=== PATIENT | female | born 1940 | race Caucasian/White ===

== ENCOUNTER 2017-01-12 09:01 | Outpatient (CLI) ==
[2017-01-12 10:02] LABS: HEMOGLOBIN 11.7 g/dl (12.0-16.0); MEAN CORPUSCULAR HEMOGLOBIN 30.2 pg (27.0-31.0); MEAN CORPUSCULAR HGB CONC 34.4 (31.8-35.4); MEAN CORPUSCULAR VOLUME 87.6 fl (81.0-99.0); RED BLOOD COUNT 3.88 10^6/ul (4.20-5.40); WHITE BLOOD COUNT 6.15 K/ul (4.6-10.2)
[2017-01-12 10:04] LABS: BILIRUBIN,URINE Negative (NEGATIVE); KETONES,URINE Negative (NEGATIVE); LEUKOCYTE ESTERASE ,URINE Negative (NEGATIVE); NITRITE,URINE Negative (NEGATIVE); PROTEIN,URINE Negative (NEGATIVE); URINE, BLOOD Negative (NEGATIVE)
[2017-01-12 10:05] LABS: ADD URINE MICROSCOPIC NO
[2017-01-12 10:41] LABS: ALBUMIN 3.7 g/dL (3.4-5.0); ALBUMIN/GLOBULIN RATIO 1.12; ANION GAP 13.9; BILIRUBIN,TOTAL 0.49 mg/dL (0.00-1.20); BUN/CREATININE RATIO 19.26; CALCIUM 9.5 mg/dL (8.2-10.2); CREATININE 1.09 mg/dL (0.60-1.30); MAGNESIUM 1.4 mg/dL (1.7-2.2); PHOSPHORUS 2.7 mg/dL (2.8-4.1); POTASSIUM 3.9 mmol/L (3.5-5.10)
== END 2017-01-12 09:02 ==
LOC: LAB 09:01
PROVIDERS: ATTEND Nurse Practitioner
DX: N18.3 Chronic kidney disease, stage 3 (moderate) (principal); E55.9 Vitamin D deficiency, unspecified
CPT/HCPCS: 36415; 80053; 81001; 82306; 82570; 83735; 83970; 84100; 84156; 84550; 85027

== ENCOUNTER 2017-04-09 12:44 | Outpatient (CLI) | END 2017-04-09 12:45 | disposition home or self-care (01) | LOC: RAD 12:44 | PROVIDERS: ATTEND Family Medicine | DX: Z12.31 Encounter for screening mammogram for malignant neoplasm of breast (principal) | CPT/HCPCS: 77067 ==

== ENCOUNTER 2018-01-10 09:25 | Outpatient (CLI) | payer OTHER | END 2018-01-10 09:26 | disposition home or self-care (01) | LOC: LAB 09:25 | PROVIDERS: ATTEND Nurse Practitioner | DX: N18.3 Chronic kidney disease, stage 3 (moderate) (principal); E55.9 Vitamin D deficiency, unspecified | CPT/HCPCS: 36415; 80053; 81001; 82306; 82570; 83735; 83970; 84100; 84156; 84550; 85027 ==

== ENCOUNTER 2018-02-18 13:13 | Emergency (ER) | payer OTHER ==
[2018-02-18 13:32] VITALS: BP 183/85; TEMP 96.1; BMI 25.3
--- NOTE | 2018-02-18 14:15 | CT ---
EXAM: CT BRAIN HISTORY: Fall with suspected head injury TECHNIQUE: CT brain without intravenous contrast. 5-mm axial sections with Reformations. COMPARISON: None FINDINGS: There is a tiny acute subdural hematoma in the right frontal parietal level measuring up to about 4.1 mm axial dimension. Subdural blood extends along the right aspect of the anterior interhemispheric falx. Two additional small foci of blood product are present. One measuring up to 6.5 mm found in the uppe r right frontal lobe which probably represents a hemorrhagic parenchymal contusion or focus of subara chnoid blood. Less likely epidural hematoma. Another less distinct, smaller focus of blood product found medial to the right aspect of the anterio r interhemispheric falx measures 4.1 mm with similar differential considerations. There is no noticeable midline shift. Involutional changes include chronic microvascular ischemic ch bryanna which is moderate. There is mild ventriculomegaly which is likely related to generalized atroph y. Basal cisterns are patent. No skull fracture is seen. Visualized paranasal sinuses and mastoid process air cells are clear. IMPRESSION: 1. Small right subdural hematoma. 2. Additional foci of blood product as described located on the right probably represent hemorrhagic parenchymal contusions. Less likely other etiologies (subarachnoid/epidural bleeds). 3. No skull fracture seen. CRITICAL RESULT: I spoke with ordering physician Tonio by phone about these findings at 2:11 p.m. o n 02/18/2018.
--- NOTE | 2018-02-18 14:22 | ED.PDOC ---
General ED Provider: Dr. ANGELINA BUSTAMANTE Chief Complaint: Fall Stated Complaint: possible fall found on the ground by her home health nurse she able to talk to her nurse pt was unsteady upon being help. she was also confused per debbie Chapman . Time Seen by Physician: 13:17 (seen with pt's nurse at all times pt is AOX3 NO DEFICITS NOTED ) Mode of Arrival: Wheelchair Information Source: Patient Exam Limitations: No limitations Primary Care Provider: CECILIO DASILVA Nursing and Triage Documentation Reviewed and Agree: Yes Does patient meet sepsis criteria?: No System Inflammatory Response Syndrome: Not Applicable Sepsis Protocol: For patient's 13 years and over: Temp is 96.8 and below OR 101 and greater Pulse >90 BPM Resp >20/minute Acutely Altered Mental Status Are patient's symptoms suggestive of a new infection, such as: -Pneumonia -Skin, Soft Tissue -Endocarditis -UTI -Bone, Joint Infection -Implantable Device -Acute Abdominal Infection -Wound Infection -Meningitis -Blood Stream Catheter Infection -Unknown Neurological Complaint Exam - Headache Complaint/Exam Onset: Gradual (OCCIPTAL HEADACHE) Duration: TIME OF ONSET ABOUT 12NOON Symptoms Are: Resolved Episodes Lasting: Minutes Worst Headache Ever: No Initial Severity: Mild Current Severity: Mild Location: Occipital Aggravating: Reports: None Alleviating: Reports: None Associated Signs and Symptoms: Denies: Dizziness, Seizure, Nausea, Vomiting, Sinus pressure, Fever, Neck pain, Neck stiffness, Decreased LOC, Visual changes Related Surgical History: Reports: None SAH Risk Factors: Reports: Hypertension (ON ASPRIN DAILY) Meningitis Risk Factors: Reports: None SDH Risk Factors: Reports: Elderly, Recent trauma, Coagulopathy (ON ASPRIN) Temporal Arteritis Risk Factors: Reports: Female, Normal Head CT Within Last 12 Months: No Fundoscopic Exam: Present: Normal Findings Papilledema Present: No Temporal Artery Tenderness: Present: None Sinus Tenderness: Present: None TMJ Tenderness: Present: None Meningeal Signs Positive: No Pain on Passive Flexion-Positive Kernig's: No ROM Limited In: No Limitiations Focal Weakness: Present: None Focal Sensory Loss: Present: None Gait: Unable Nystagmus Present: No Gag Reflex Present: Yes [id number]: Normal Findings Romberg Test Positive: No (UNABLE TO DO) Babinski Sign: Negative Right, Negative Left Heel to Toe Normal: No (UNABLE ) Differential Diagnoses: Other (HEAD INJURY CERVICAL SPINE INJURY) Review of Systems - Review Of Systems Constitutional: Reports: No symptoms Eyes: Reports: No symptoms Ears, Nose, Mouth, Throat: Reports: No symptoms Respiratory: Reports: No symptoms Cardiac: Reports: No symptoms GI: Reports: No symptoms : Reports: No symptoms Musculoskeletal: Reports: No symptoms Skin: Reports: No symptoms Neurological: Reports: Cognitive dysfunction (AT ONSET UPON ARRIVAL NO LONGER CONFUSED ) Endocrine: Reports: No symptoms Hematologic/Lymphatic: Reports: No symptoms All Other Systems: Reviewed and Negative Past Medical History - Past Medical History Previously Healthy: Yes Endocrine: Reports: Dyslipidemia Cardiovascular: Reports: Hypertension Respiratory: Reports: None Hematological: Reports: None Gastrointestinal: Reports: None Genitourinary: Reports: CKD Neuro/Psych: Reports: None Musculoskeletal: Reports: None Cancer: Reports: None Last Menstrual Period: NA - Surgical History 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 - Family History Family History: Reports: None - Social History Smoking Status: Never smoker Hx Substance Use: No Alcohol Screening: None Physical Exam - Physical Exam Appearance: Well-appearing, No pain distress, Well-nourished Eyes: MARINO, EOMI, Conjunctiva clear ENT: Ears normal, Nose normal, Oropharynx normal Respiratory: Airway patent, Breath sounds clear, Breath sounds equal, Respirations nonlabored Cardiovascular: RRR, Pulses normal, No rub, No murmur GI/: Soft, Nontender, No masses, Bowel sounds normal, No Organomegaly Musculoskeletal: Normal strength, ROM intact, No edema, No calf tenderness Skin: Warm, Dry, Normal color Neurological: Sensation intact, Motor intact, Reflexes intact, Cranial nerves intact, Alert, Oriented Psychiatric: Affect appropriate, Mood appropriate Re-Evaluation - Re-Evaluation Time of Re-Evaluation: 14:00 Status: Improved Vital Signs Stable: Yes Pain Level: 0 Appearance: NAD Lungs: Clear Skin: Warm and Dry Neuro: Alert and Oriented X3 CV: RRR - Re-Evaluation Time of Re-Evaluation: 14:29 Status: Improved Vital Signs Stable: Yes Pain Level: 0 Appearance: NAD Skin: Warm and Dry Neuro: Alert and Oriented X3 CV: RRR Physician Notification - Case Discussed Physician Notified: PMD Time of Notification: 14:29 (SPEAK TO NEUROSURGERY AND TRANNSFER) Physician Notified: NOAM Time of Notification: 14:39 Critical Care Note - Critical Care Note Total Time (mins): 60 Course - Course Hematology/Chemistry: 02/18/18 13:30 02/18/18 13:30 Orders, Labs, Meds: Lab Review 02/18/18 02/18/18 02/18/18 13:30 13:30 13:30 WBC 9.37 RBC 4.02 L Hgb 12.1 Hct 35.5 L MCV 88.3 MCH 30.1 MCHC 34.1 RDW Coeff of Aroldo 12.3 Plt Count 172 Immature Gran % (Auto) 0.7 Neut % (Auto) 77.9 Lymph % (Auto) 13.1 [place] % (Auto) 6.4 Eos % (Auto) 1.5 Baso % (Auto) 0.4 Immature Gran # (Auto) 0.1 Neut # (Auto) 7.3 H Lymph # (Auto) 1.2 [place] # (Auto) 0.6 Eos # (Auto) 0.1 Baso # (Auto) 0.0 Sodium 134.9 L Potassium 4.52 Chloride 101.4 Carbon Dioxide 26.4 Anion Gap 11.62 BUN 20.9 H Creatinine 0.92 Estimated GFR (MDRD) 59.00 BUN/Creatinine Ratio 22.71 Glucose 344.9 H Calcium 9.80 Total Bilirubin 0.69 AST 31.2 ALT 27.6 Alkaline Phosphatase 53.4 Total Creatine Kinase 175.8 H CK-MB (CK-2) 3.670 H CK-MB (CK-2) % 2.0800 Troponin I 0.035 Total Protein 7.31 Albumin 3.95 Globulin 3.36 Albumin/Globulin Ratio 1.17 TSH Free T4 1.11 02/18/18 13:30 WBC RBC Hgb Hct MCV MCH MCHC RDW Coeff of Aroldo Plt Count Immature Gran % (Auto) Neut % (Auto) Lymph % (Auto) [place] % (Auto) Eos % (Auto) Baso % (Auto) Immature Gran # (Auto) Neut # (Auto) Lymph # (Auto) [place] # (Auto) Eos # (Auto) Baso # (Auto) Sodium Potassium Chloride Carbon Dioxide Anion Gap BUN Creatinine Estimated GFR (MDRD) BUN/Creatinine Ratio Glucose Calcium Total Bilirubin AST ALT Alkaline Phosphatase Total Creatine Kinase CK-MB (CK-2) CK-MB (CK-2) % Troponin I Total Protein Albumin Globulin Albumin/Globulin Ratio TSH 2.060 Free T4 Orders Category Date Time Status EKG-(ED ONLY) Stat CARDIO 02/18/18 13:16 Completed ED IV/MEDIPORT/POWERPORT .ONCE EMERGENCY 02/18/18 13:16 Active CBC W/ AUTO DIFF Stat LAB 02/18/18 13:30 Completed COMPREHENSIVE METABOLIC PANEL Stat LAB 02/18/18 13:30 Completed CREATINE KINASE Stat LAB 02/18/18 13:30 Completed FREE T4 (FREE THYROXINE) Stat LAB 02/18/18 13:30 Completed THYROID STIMULATING HORMONE Stat LAB 02/18/18 13:30 Completed TROPONIN I Stat LAB 02/18/18 13:30 Completed URINALYSIS C & S IF INDICATED Stat LAB 02/18/18 13:16 Uncollected 0.9 % Sodium Chloride [Saline Flush] MEDS 02/18/18 13:16 Active 1 syr IVF PRN PRN CT CERVICAL SPINE W/O CONTRAST Stat RADS 02/18/18 13:[address] HEAD W/O CONTRAST Stat RADS 02/18/18 13:17 Completed Medications Generic Name Dose Route Start Last Admin Trade Name Freq PRN Reason Stop Dose Admin Sodium Chloride 1 syr 02/18/18 13:16 Saline Flush IVF PRN PRN To flush IV Vital Signs: Temp Pulse Resp BP Pulse Ox 02/18/18 13:14 96.1 F L 60 14 183/85 H 96 Departure - Departure Time of Disposition: 15:00 Disposition: TSF SHORT-TRM HOSP Discharge Problem: Subdural hematoma Instructions: Concussion (ED), Head Injury (ED) Condition: Good Pt referred to PMD for follow-up: Yes IPMP verified?: No Additional Instructions: Please call your Family Physician as soon as possible to schedule a follow-up appointment. Allergies/Adverse Reactions: Allergies No Known Allergies Allergy (Unverified 02/18/18 13:37) Home Medications: Ambulatory Orders Aspirin 81 mg PO DAILY 02/18/18 Brimonidine Tartrate/Timolol [Combigan Eye Drops] 1 drop OP BID 02/18/18 Cholecalciferol (Vitamin D3) [Vitamin D] 5,000 unit PO WEEKLY 02/18/18 Digoxin 250 mcg PO DAILY 02/18/18 Furosemide [Lasix] 20 mg PO EVERY OTHER DAY 02/18/18 Insulin Detemir [Levemir] 30 unit SUBCUT BEDTIME 02/18/18 Linagliptin [Tradjenta] 5 mg PO DAILY 02/18/18 Losartan Potassium [Cozaar] 25 mg PO DAILY 02/18/18 Lovastatin [Altoprev] 40 mg PO DAILY 02/18/18 Metoprolol Succinate 25 mg PO BID 02/18/18 Omeprazole [Prilosec] 20 mg PO EVERY OTHER DAY 02/18/18 Disposition Discussed With: Patient, Family
--- NOTE | 2018-02-18 14:26 | CT ---
EXAM: CT cervical spine without contrast HISTORY: Injury COMPARISON: None TECHNIQUE: CT cervical spine performed without intravenous contrast. Coronal and sagittal reformatt ed images obtained. FINDINGS: Vertebral bodies normal height. No fracture. No subluxation. Multilevel marginal osteop hyte formation. Mild to moderate multilevel intervertebral space narrowing. Multilevel facet and un covertebral hypertrophy. Degenerative changes cause mild multilevel central canal narrowing and area s of bilateral neural foraminal narrowing that is greatest at C5-C6 on the right where there is sever e neural foraminal narrowing. Prevertebral soft tissues appear normal. IMPRESSION: 1. No fracture or subluxation. 2. Chronic discogenic degenerative disease and facet arthrosis.
[2018-02-18] MEDS ORDERED: ZESTRIL PO STA (14:58)
== END 2018-02-18 15:17 | disposition short-term general hospital (02) ==
LOC: ED 13:13
DX: S06.5X9A Traumatic subdural hemorrhage with loss of consciousness of unspecified duration, initial encounter (principal); R51 Headache; I10 Essential (primary) hypertension; R41.0 Disorientation, unspecified; R41.82 Altered mental status, unspecified; W19.XXXA Unspecified fall, initial encounter; Z79.899 Other long term (current) drug therapy; N18.9 Chronic kidney disease, unspecified; E78.5 Hyperlipidemia, unspecified; Z95.1 Presence of aortocoronary bypass graft
CPT/HCPCS: 36415; 80053; 82550; 82553; 84439; 84443; 84484; 85025; 93005; 93010; 99285

== ENCOUNTER 2018-02-25 13:15 | Inpatient (IN) | payer OTHER ==
--- NOTE | 2018-02-25 14:44 | CT ---
EXAM: CT of the head without contrast History: Follow-up subdural hematoma. Comparison: Head CT 02/18 2018 Technique: Multiplanar CT images through the head were obtained without the administration of IV con trast. Findings: The visualized paranasal sinuses and mastoid air cells are clear in general. No acute pankaj varial abnormalities. Intracranially, decreasing size of right subdural hematoma now measuring 2 mm in thickness and previo usly measured 5 mm in thickness. Hemorrhagic contusions on the right have mostly resolved. The subd ural hemorrhage along the falx is resolving with small residual subdural hygroma. No new areas of he morrhage. No midline shift. No hydrocephalous. No change in the periventricular and subcortical wh ite matter hypodensities. Impression: Resolving intracranial hemorrhage. No new areas of hemorrhage.
--- NOTE | 2018-02-25 14:45 | CT ---
EXAM: CT chest without contrast HISTORY: Cough COMPARISON: None TECHNIQUE: CT chest performed without intravenous contrast. Coronal and sagittal reformatted images obtained. FINDINGS: The thyroid and thoracic inlet appear normal. Heart mildly enlarged. Post CABG changes. No pericardial effusion. Aorta normal in caliber. Atherosclerosis. Esophagus unremarkable. Evalu ation for lymphadenopathy limited without contrast. Top normal size. The calcified mediastinal lymp h nodes, consistent with old granulomatous disease. Top normal size noncalcified lymph nodes present . Visualized portion upper abdomen demonstrates no acute abnormality. Left renal cyst. No acute ab normalities of the bones. Degenerative change in the spine. Median sternotomy wires. Osteoarthriti s and in the shoulders. Central airway patent. Mild dependent atelectasis and scattered subsegmenta l atelectasis and/or scarring. No airspace consolidation. No pleural effusion. No pneumothorax. IMPRESSION: 1. Mild bilateral atelectasis. No airspace consolidation. 2. Cardiomegaly.
--- NOTE | 2018-02-25 15:35 | ED.PDOC ---
General ED Provider: Dr. ANGELINA BUSTAMANTE Chief Complaint: Weakness Stated Complaint: failure to thrive Time Seen by Physician: 13:18 (seen with her nurse at all times ) Mode of Arrival: Wheelchair Information Source: Patient, Family Exam Limitations: No limitations Primary Care Provider: CECILIO DASILVA Nursing and Triage Documentation Reviewed and Agree: Yes Does patient meet sepsis criteria?: Yes If yes, has appropriate treatment been initiated?: No System Inflammatory Response Syndrome: Not Applicable Sepsis Protocol: For patient's 13 years and over: Temp is 96.8 and below OR 101 and greater Pulse >90 BPM Resp >20/minute Acutely Altered Mental Status Are patient's symptoms suggestive of a new infection, such as: -Pneumonia -Skin, Soft Tissue -Endocarditis -UTI -Bone, Joint Infection -Implantable Device -Acute Abdominal Infection -Wound Infection -Meningitis -Blood Stream Catheter Infection -Unknown Neurological Complaint Exam - Weakness Complaint/Exam Onset: Gradual Duration: 2 weeks Symptoms Are: Still present Timing: Constant Episodes Lasting: Days Initial Severity: Moderate Current Severity: Mild Character: Reports: Lightheaded, Weak Aggravating: Reports: None Alleviating: Reports: None Associated Signs and Symptoms: Denies: Nausea, Vomiting, Diaphoresis, Tinnitus, Chest pain, Short of air, Palpitations, Unsteady gait, GI blood loss, Visual changes, Decreased oral intake, Change in medication, Change in diet, OTC meds, Loss of balance Related History: Similar episode Cardiac Risk Factors: Reports: Elevated lipids CVA Risk Factors: Reports: None Related Surgical History: Reports: None JVD Present: No Carotid Bruit Present: No Glascow Coma Scale (see protocol): 15 Nystagmus Present: Yes Gag Reflex Present: No Meningeal Signs Positive: No Focal Weakness: Present: None Gait: Normal Differential Diagnoses: Dysrhythmia, Hypovolemia, Metabolic abnormalities, Vasovagal reaction Review of Systems - Review Of Systems Constitutional: Reports: Malaise, Weakness Eyes: Reports: No symptoms Ears, Nose, Mouth, Throat: Reports: No symptoms Respiratory: Reports: No symptoms Cardiac: Reports: No symptoms GI: Reports: No symptoms : Reports: No symptoms Musculoskeletal: Reports: No symptoms Skin: Reports: No symptoms Neurological: Reports: No symptoms Endocrine: Reports: No symptoms Hematologic/Lymphatic: Reports: No symptoms All Other Systems: Reviewed and Negative Past Medical History - Past Medical History Previously Healthy: Yes Endocrine: Reports: Dyslipidemia Cardiovascular: Reports: Hypertension Respiratory: Reports: None Hematological: Reports: None Gastrointestinal: Reports: None Genitourinary: Reports: CKD Neuro/Psych: Reports: None Musculoskeletal: Reports: None Cancer: Reports: None Last Menstrual Period: none - Surgical History 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 - Family History Family History: Reports: None - Social History Smoking Status: Never smoker Hx Substance Use: No Alcohol Screening: None Physical Exam - Physical Exam Appearance: Well-appearing, No pain distress, Well-nourished Eyes: MARINO, EOMI, Conjunctiva clear ENT: Ears normal, Nose normal, Oropharynx normal Respiratory: Airway patent, Breath sounds clear, Breath sounds equal, Respirations nonlabored Cardiovascular: RRR, Pulses normal, No rub, No murmur GI/: Soft, Nontender, No masses, Bowel sounds normal, No Organomegaly Musculoskeletal: Normal strength, ROM intact, No edema, No calf tenderness Skin: Warm, Dry, Normal color Neurological: Sensation intact, Motor intact, Reflexes intact, Cranial nerves intact, Alert, Oriented Psychiatric: Affect appropriate, Mood appropriate Interpretation - Radiology Interpretation Radiology Interpretation By: Radiologist (improved) Radiology Results: No acute changes Re-Evaluation - Re-Evaluation Time of Re-Evaluation: 15:00 Status: Unchanged Vital Signs Stable: Yes Pain Level: 0 Appearance: NAD Lungs: Clear Skin: Warm and Dry Neuro: Alert and Oriented X3 CV: RRR - Re-Evaluation Time of Re-Evaluation: 15:35 Status: Unchanged Vital Signs Stable: Yes Pain Level: 0 Appearance: NAD Skin: Warm and Dry Neuro: Alert and Oriented X3 CV: RRR Physician Notification - Case Discussed Physician Notified: pmd Time of Notification: 15:35 Admit To: Inpatient Critical Care Note - Critical Care Note Total Time (mins): 0 Course - Course Hematology/Chemistry: 02/25/18 14:24 02/25/18 14:24 Orders, Labs, Meds: Lab Review 02/25/18 02/25/18 02/25/18 14:24 14:24 14:24 WBC 7.75 RBC 3.98 L Hgb 11.9 L Hct 35.1 L MCV 88.2 MCH 29.9 MCHC 33.9 RDW Coeff of Aroldo 12.3 Plt Count 185 Immature Gran % (Auto) 0.8 Neut % (Auto) 61.6 Lymph % (Auto) 25.2 [place] % (Auto) 9.2 Eos % (Auto) 2.7 Baso % (Auto) 0.5 Immature Gran # (Auto) 0.1 Neut # (Auto) 4.8 Lymph # (Auto) 2.0 [place] # (Auto) 0.7 Eos # (Auto) 0.2 Baso # (Auto) 0.0 Sodium 129.7 L Potassium 4.29 Chloride 95.4 L Carbon Dioxide 25.8 Anion Gap 12.79 BUN 16.5 Creatinine 0.99 Estimated GFR (MDRD) 54.00 BUN/Creatinine Ratio 16.66 Glucose 253.0 H Calcium 9.51 Total Bilirubin 0.44 AST 21.1 ALT 20.9 Alkaline Phosphatase 43.0 L Total Protein 7.10 Albumin 3.96 Globulin 3.14 Albumin/Globulin Ratio 1.26 Procalcitonin < 0.05 Orders Category Date Time Status BLOOD CULTURE Stat LAB 02/25/18 14:24 Received CBC W/ AUTO DIFF Stat LAB 02/25/18 14:24 Completed COMPREHENSIVE METABOLIC PANEL Stat LAB 02/25/18 14:24 Completed PROCALCITONIN Stat LAB 02/25/18 14:24 Completed URINALYSIS C & S IF INDICATED Stat LAB 02/25/18 15:[address] CHEST W/O CONTRAST Stat RADS 02/25/18 13:[address] HEAD W/O CONTRAST Stat RADS 02/25/18 13:45 Completed Vital Signs: Temp Pulse Resp BP Pulse Ox 02/25/18 13:16 98.9 F 56 L 18 191/80 H 98 Departure - Departure Time of Disposition: 15:35 Disposition: ADMITTED INPATIENT Discharge Problem: Encephalopathy, Hyponatremia Condition: Good Pt referred to PMD for follow-up: Yes IPMP verified?: No Additional Instructions: Please call your Family Physician as soon as possible to schedule a follow-up appointment. Allergies/Adverse Reactions: Allergies No Known Allergies Allergy (Verified 02/25/18 13:21) Home Medications: Ambulatory Orders Aspirin 81 mg PO DAILY 02/18/18 Brimonidine Tartrate/Timolol [Combigan Eye Drops] 1 drop OP BID 02/18/18 Cholecalciferol (Vitamin D3) [Vitamin D] 5,000 unit PO WEEKLY 02/18/18 Digoxin 250 mcg PO DAILY 02/18/18 Furosemide [Lasix] 20 mg PO EVERY OTHER DAY 02/18/18 Insulin Detemir [Levemir] 30 unit SUBCUT BEDTIME 02/18/18 Linagliptin [Tradjenta] 5 mg PO DAILY 02/18/18 Losartan Potassium [Cozaar] 25 mg PO DAILY 02/18/18 Lovastatin [Altoprev] 40 mg PO DAILY 02/18/18 Metoprolol Succinate 25 mg PO BID 02/18/18 Omeprazole [Prilosec] 20 mg PO EVERY OTHER DAY 02/18/18 Guaifenesin/Codeine Phosphate [Robitussin AC Syrup] 5 ml PO Q6H PRN 02/25/18 Disposition Discussed With: Patient, Family
[2018-02-25 17:23] VITALS: BMI 25.7
[2018-02-25] MEDS: SODIUM CHLORIDE 1,000 ML IV SCH (17:32)
[2018-02-25] MEDS: TOPROL XL PO SCH (17:46)
[2018-02-25] MEDS: REMERON PO SCH (20:41)
[2018-02-25] MEDS: HUMULIN R SUBCUT PRN (20:41)
[2018-02-25] MEDS: LEVEMIR SUBCUT SCH (20:43)
[2018-02-25] MEDS: BRIMONIDINE TARTRATE OP SCH (20:44)
[2018-02-25] MEDS: TIMOLOL OP SCH (20:44)
[2018-02-25] MEDS ORDERED: LATANOPROST OP SCH (21:00)
[2018-02-26] MEDS: SODIUM CHLORIDE 1,000 ML IV SCH (05:17)
[2018-02-26] MEDS: TYLENOL PO PRN ×2 (05:19→20:22)
[2018-02-26] MEDS: HUMULIN R SUBCUT PRN ×4 (06:39→20:28)
[2018-02-26] MEDS ORDERED: LOVASTATIN 40 MG PO SCH (09:00)
[2018-02-26] MEDS ORDERED: DIGOXIN 250 MCG PO SCH (09:00)
[2018-02-26] MEDS ORDERED: FLUTICASONE PROPIONATE 2 MCG NAS SCH (09:00)
[2018-02-26] MEDS: ASTELIN 0.1% NAS SCH (09:09)
[2018-02-26] MEDS: ASPIRIN CHEWABLE PO SCH (09:09)
[2018-02-26] MEDS: BRIMONIDINE TARTRATE OP SCH ×2 (09:11→20:35)
[2018-02-26] MEDS: TIMOLOL OP SCH ×2 (09:11→20:35)
[2018-02-26] MEDS: COZAAR PO SCH (09:12)
[2018-02-26] MEDS: FLONASE NAS SCH (09:12)
[2018-02-26] MEDS: LANOXIN PO SCH (09:13)
[2018-02-26] MEDS: TOPROL XL PO SCH ×2 (09:14→16:58)
[2018-02-26] MEDS: MEVACOR PO SCH (09:14)
[2018-02-26] MEDS: TRADJENTA PO SCH (09:15)
--- NOTE | 2018-02-26 16:26 | RS.PTINEVL ---
Subjective - Patient information Date of Evaluation: 02/26/18 Date of Arrival on Unit: 02/25/18 Admitted From:: Home Diagnosis: subdural hematoma s/p fall at home, encephalopathy, Usual Living Arrangement: With Spouse Home Environment: House, Stairs (few), Rail Medical History: Hypertension, CVA/TIA, Diabetes, Arthritis Medical History Comments:: [place], CKD, DJD, foraminal stenosis Surgical History: Cholecystectomy, CABG Surgical History Comments:: appey Medications: see chart Subjective Information/ Patient Comments:: pt states that she is weak since she fell. She states she wants to get stronger so she can go home. - Level of function Abilities prior to this admission: prior to fall pt amb independently without AD and independent with ADL's. Since fall she has required assist. Current Level of Function: Partially Dependent Current Equipment Used at Home: raised toliet, shower chair, rwx, accucheck Interventions - Objective Patient Orientation: Person, Place, Situation Current Interventions: IV's, Telemetry Observation: pt has a wound to coccyx Range of Motion - ROM Right Upper Extremity AROM: Slight limitation (limited shld flex and abd due to joint stiffness and soreness) Left Upper Extremity AROM: WFL's Right Lower Extremity AROM: WFL's Left Lower Extremity AROM: WFL's Muscle Strength - Muscle Strength Right Upper Extremity Strength: Mild Weakness (shld flex 3-/5, elbow flex/ext 4- /5) Left Upper Extremity Strength: Mild Weakness (grossly 4/5) Right Lower Extremity Strength: Mild Weakness (hip flex 3+/5, knee flex/ext 4-/5 , ankle Df/PF 4-/5) Left Lower Extremity Strength: Mild Weakness (hip flex 3+/5, knee flex/ext 4-/5 , ankle Df/PF 4-/5) Sensation - Sensation Right Upper Extremity Sensation: Intact/Normal Left Upper Extremity Sensation: Intact/Normal Right Lower Extremity Sensation: Intact/Normal Left Lower Extremity Sensation: Intact/Normal Palpation Palpation Findings: Tenderness Comments:: R biceps Balance - Sitting Balance and Reactions Static Sitting Balance: Good Dynamic Sitting Balance: Fair Sitting Equilibrium Reactions: Delayed Left, Delayed Right Sitting Protective Reactions: Delayed Left, Delayed Right - Standing Balance and Reactions Static Standing Balance: Poor Dynamic Standing Balance: Poor Standing Equilibrium Reactions: Delayed Left, Delayed Right Standing Protective Reactions: Delayed Left, Delayed Right - Comments Balance Assessment Comments: pt with 3 episodes of LOB required CGA to min x 1 to prevent fall Functional Mobility - Transfers Sit to Stand: Min Assist, 1 person assist Stand to Sit: Min Assist, 1 person assist - Safety Awareness Safety Awareness: Fair CLIFF INDEX SCORE: n/a Ambulation - Ambulation Assistive Device Used: Rolling Walker Orthotic/Prosthetic Device: No Distance: 115ft Assistance needed with Ambulation: CGA, Min Assist, 1 person assist Quality of Ambulation: pt amb with CGA to min x 1 +1 for IV. pt amb with narrow LAVELL, flexed posture, decreased step length. Gait Deviations: Narrow Based gait, Forward posture, Short stride, Deviates from path Factors Affecting Ambulation: Decreased Balance, Weakness, Decreased Coordination, Decreased Safety, Limited Endurance Treatment time - Time with patient Length of Evaluation: 24 Total treatment time: 26 Patient Education - Education Patient Education: Education of Plan of Care Teaching Recipient: Patient Teaching Methods: Discussion (discussion regarding POC as well as safety with rwx) Assessment - Assessment Problem List:: Decreased level of function, Requires training/education, Decreased safety/Risk of falls, Weakness Rehab Potential: Good Further Therapy Indicated?: Yes Candidate for Swing Bed for Therapy Services?: Feel pt may be a candidate for swing bed for therapy due to plans to return home and pt is motivated to participate with PT Evaluation Complexity: HISTORY: Medium, EXAM OF BODY SYSTEMS: Medium, CLINICAL PRESENTATION: Medium, CLINICAL DECISION MAKING: Medium Short Term Goals GOAL #1: Demonstrate independence with rolling and scooting up in bed Goal to be met by: 03/01/18 GOAL #2: Transfer sup to/from sit min x 1, sit to/from stand CGA Goal to be met by: 03/01/18 GOAL #3: pt amb with rwx 140ft with CGA with no LOB with improved posture Goal to be met by: 03/01/18 GOAL #4: Improve BLE strength 4 to 4+/5 Goal to be met by: 03/01/18 Snf Goals GOAL #1: Transfer sup to/from sit to/from stand SBA to CGA Goal to be met by: 03/04/18 GOAL #2: Amb functional household distances with rwx SBA with no LOB Goal to be met by: 03/04/18 GOAL #3: Improve dyn stand balance to fair + Goal to be met by: 03/04/18 Plan Plan of Care: Therapeutic EX, Therapeutic Activity Other:: gait training Frequency of Treatment: 1-2 X day, as tolerated Duration of Treatment: 6 days Anticipated Discharge Destination: Home Treatment Diagnosis (ICD 10 Codes): R26.0 ataxic gait. R26.81 balance impairment. M62.81 weakness Has the Physician been added for Co-signature?: Yes
[2018-02-26] MEDS: REMERON PO SCH (20:22)
[2018-02-26] MEDS: LEVEMIR SUBCUT SCH (20:27)
[2018-02-26] MEDS: LATANOPROST OP SCH (20:35)
[2018-02-27] MEDS: SODIUM CHLORIDE 1,000 ML IV SCH ×2 (04:57→17:46)
[2018-02-27] MEDS ORDERED: LASIX TAB PO SCH (06:30)
[2018-02-27] MEDS ORDERED: PRILOSEC PO SCH (06:30)
[2018-02-27] MEDS ORDERED: MILK OF MAGNESIA PO STA (08:04)
[2018-02-27] MEDS: MEVACOR PO SCH (08:11)
[2018-02-27] MEDS: TRADJENTA PO SCH (08:11)
[2018-02-27] MEDS: FLONASE NAS SCH (08:11)
[2018-02-27] MEDS: ASPIRIN CHEWABLE PO SCH (08:11)
[2018-02-27] MEDS: TOPROL XL PO SCH ×2 (08:11→16:37)
[2018-02-27] MEDS: ASTELIN 0.1% NAS SCH (08:11)
[2018-02-27] MEDS: LANOXIN PO SCH (08:12)
[2018-02-27] MEDS: COZAAR PO SCH (08:12)
[2018-02-27] MEDS: BRIMONIDINE TARTRATE OP SCH ×2 (08:13→21:28)
[2018-02-27] MEDS: TIMOLOL OP SCH ×2 (08:13→21:28)
--- NOTE | 2018-02-27 09:40 | RS.OTINEVL ---
Subjective - Patient information Date of Evaluation: 02/27/18 Date of Arrival on Unit: 02/25/18 Admitted From:: Home Usual Living Arrangement: With Spouse Living Arrangement Comments: Was living at home with her for 57 years. Pt was taking care of . Pt went outside and fell and hit the back of her head. Home Environment: House Medical History Comments:: subdural hematoma, confusion, encephalopathy, hyponatremia, headache, Medications: medicine for depression for a few days. - Level of function Abilities prior to this admission: Pt was driving herself. Pt walked without AE. Pt was independent with dressing and ADLS. Pt having memory trouble. Pt is having difficulty with processing and it is taking her longer to get dressed. Current Level of Function: Partially Dependent Current Equipment Used at Home: raised toliet, shower chair, rwx, accucheck Pain Assessment - Pain Pain Score: 7 Side: bilateral Pain Location Body Site: Head Interventions - Objective Patient Orientation: Person, Place, Situation Current Interventions: IV's Observation: Pt has a headache. Pt has a delay in processing. Pt requires extra time to complete ADLs. Interventions - ROM Right Upper Extremity AROM: Slight limitation Left Upper Extremity AROM: WFL's - Strength Right Upper Extremity Strength: Mild Weakness Left Upper Extremity Strength: Mild Weakness - Sensation Right Upper Extremity Sensation: Intact/Normal Left Upper Extremity Sensation: Intact/Normal Balance - Sitting Balance Static Sitting Balance: Good Dynamic Sitting Balance: Good - Standing Balance Static Standing Balance: Poor Dynamic Standing Balance: Poor - Comments Balance Assessment Comments: Poor ADL Skills - Self Feeding Self Feeding: Independent - Grooming Grooming: Independent - Bathing Bathing UE: CGA Bathing LE: CGA - Dressing Dressing UE: CGA Dressing LE: CGA - Toilet Management Toileting Management: Supervision Functional Mobility - Bed Mobility Rolling R/L: Independent Scooting: Independent Supine to Sit: Independent Sit to Supine: Independent - Transfers Sit to Stand: CGA Stand to Sit: CGA Stand Pivot Transfers: CGA CLIFF INDEX SCORE: . Additional Treatment Performed - Time with patient Length of Evaluation: 25 Total treatment time: 25 Activities Would you be interested in leaving your room for activities?: Yes Would you enjoy group activities?: Yes Do you have difficulty with your vision?: Yes What types of things do you enjoy doing? Any Hobbies?: cross stitching, hand work. Patient Interests:: Watching Television, Visiting/Socializing, [employer] Patient Education Patient Education: Education of diagnosis, Home Safety, Education of Plan of Care Teaching Recipient: Patient Teaching Methods: Discussion Assessment Problem List:: Decreased level of function, Requires training/education, Decreased safety/Risk of falls, Weakness, Cognitive status limits abilities Rehab Potential: Good Further Therapy Indicated?: Yes Evaluation Complexity: HISTORY: Medium, EXAM OF BODY SYSTEMS: Medium, CLINICAL DECISION MAKING: Medium Short Term Goals - Goals GOAL 1: Pt to increase I of toileting to supervision. Goal to be met by: 03/01/18 GOAL 2: Pt to increase dyn. std. balance to Fair-. Goal to be met by: 03/01/18 GOAL 3: Pt to increase B upper extremity strength to 4/5. Goal to be met by: 03/01/18 [facility] Goals GOAL 1: Pt to increase I of toileting to Modified I. Goal to be met by: 03/06/18 GOAL 2: Pt to increase dyn. std. balance to Fair-. Goal to be met by: 03/06/18 GOAL 3: Pt to increase B upper extremity strength to 4+/5. Goal to be met by: 03/06/18 Plan Plan of Care: Therapeutic EX, Neuromuscular Re-Educ, Therapeutic Activity, Self- Care/Home Management Frequency of Treatment: 1-2 X day, as tolerated Duration of Treatment: 1 Week Anticipated Discharge Destination: [facility] Treatment Diagnosis (ICD 10 Codes): M62.81 Muscle weakness, Z74.0 Reduced mobility, Z74.1 Need for assistance with personal care. Has the Physician been added for Co-signature?: Yes
[2018-02-27] MEDS: HUMULIN R SUBCUT PRN ×3 (10:37→21:29)
[2018-02-27] MEDS: TYLENOL PO PRN (15:08)
[2018-02-27] MEDS: LATANOPROST OP SCH (21:28)
[2018-02-27] MEDS: REMERON PO SCH (21:28)
[2018-02-27] MEDS: LEVEMIR SUBCUT SCH (21:29)
[2018-02-28] MEDS: HUMULIN R SUBCUT PRN ×2 (05:49→11:57)
[2018-02-28 06:24] VITALS: TEMP 97.6
[2018-02-28] MEDS: FLONASE NAS SCH (08:09)
[2018-02-28] MEDS: ASTELIN 0.1% NAS SCH (08:09)
[2018-02-28] MEDS: LANOXIN PO SCH (08:10)
[2018-02-28] MEDS: TYLENOL PO PRN (08:10)
[2018-02-28] MEDS: ASPIRIN CHEWABLE PO SCH (08:10)
[2018-02-28] MEDS: COZAAR PO SCH (08:11)
[2018-02-28] MEDS: BRIMONIDINE TARTRATE OP SCH (08:11)
[2018-02-28] MEDS: TRADJENTA PO SCH (08:11)
[2018-02-28] MEDS: TOPROL XL PO SCH (08:11)
[2018-02-28] MEDS: TIMOLOL OP SCH (08:11)
[2018-02-28] MEDS: MEVACOR PO SCH (08:11)
[2018-02-28 13:08] VITALS: BP 138/70
--- NOTE | 2018-02-28 14:24 | DS ---
DATE OF SERVICE: 02/28/2018 PRINCIPAL DIAGNOSIS: 1. ENCEPHALOPATHY SECONDARY TO #2 2. SUBDURAL HEMATOMA 3. DIABETES MELLITUS TYPE 2 4. CHRONIC KIDNEY DISEASE 5. ATRIAL FIBRILLATION 6. INSULIN TREATED TYPE 2 DIABETES 7. HYPERTENSION 8. GERD DISCUSSION: Ms. Weber had recently sustained a fall at home with increased confusion. Subsequent CT scans revealed evidence of subdural hematoma. She has seen her neurosurgeon, Dr. Marin, who planned on treating it nonoperatively. Recently , she has had increasing confusion getting confused in her own home associated with mild headache. The family presented her back to the Emergency Department. CT scan did reveal underlying subdural hematoma; however, it was smaller than the original size. However, because of her confusion, she was admitted for further evaluation and mental status monitoring. For further details, see History and Physical. CLINICAL COURSE: She was admitted to the medical floor. Her mental status remained unchanged. She did have mild headache which was improved with Tylenol. Her blood pressure was elevated during the hospitalization. We increased her Cozaar from 25 to 100 mg which she tolerated very well. At time of discharge, she was alert, still somewhat confused but improved and at this point the family decided to take her for [facility] care. At this point, she is being discharged to the alf. Discharge medications are noted. Essentially the same as admission medications, however, Cozaar will be 100 mg instead of 25 mg. MTDD
--- NOTE | 2018-03-01 08:34 | OTDC ---
Date of Evaluation:02/25/18 Diagnosis:[]Fall, subdural hematoma Number of visits:[] Last Date of Service:[02/26/18] Reason For Discharge:[[facility] to [facility]] Discharge Summary:[Pt not steady on her feet. Pt is confused intermittently. Pt is weak and needs some rehab. Pt and were admitted to [facility].] DES
[2018-03-01] MEDS ORDERED: COZAAR PO SCH ×2 (09:00)
[2018-03-04] MEDS ORDERED: VITAMIN D PO SCH (09:00)
== END 2018-02-28 15:37 | DRG 640 ==
LOC: ED 13:15 → SCU 15:52
PROVIDERS: ADMIT Family Medicine; ATTEND Family Medicine
DX: R62.7 Adult failure to thrive (principal); S06.5X9A Traumatic subdural hemorrhage with loss of consciousness of unspecified duration, initial encounter; G93.40 Encephalopathy, unspecified; E87.1 Hypo-osmolality and hyponatremia; R42 Dizziness and giddiness; E11.9 Type 2 diabetes mellitus without complications; N18.9 Chronic kidney disease, unspecified; I48.91 Unspecified atrial fibrillation; I10 Essential (primary) hypertension; K21.9 Gastro-esophageal reflux disease without esophagitis; Z79.01 Long term (current) use of anticoagulants
CPT/HCPCS: 36415; 80053; 80162; 81001; 82962; 84145; 85025; 87040; 87081; 93005; 93010; 97802; 99284

== ENCOUNTER 2018-06-24 00:04 | Emergency (ER) | payer OTHER ==
[2018-06-24 00:18] VITALS: BP 183/75; TEMP 99.1; BMI 25.4
--- NOTE | 2018-06-24 01:20 | CT ---
EXAM: CT right knee without contrast. HISTORY: Trauma. PROCEDURE: Contiguous axial CT images of the right knee without contrast with coronal and sagittal r eformats. FINDINGS: There is a minimally displaced fracture along the lateral inferior margin of the patella. There is moderate degenerative narrowing of the medial joint compartment of the knee. No subluxation or dislocation. There is degenerative spurring along the margins of the medial and lateral joint co mpartments and along the margins of the patella. There is a moderate amount of complex fluid in the joint space consistent with hemarthrosis. There is anterior soft tissue swelling. Impression: Minimally-displaced fracture along the lateral inferior margin of the patella. Moderate hemarthrosis. Degenerative changes as described.
[2018-06-24] MEDS ORDERED: NORCO 7.5-325 PO STA (01:33)
--- NOTE | 2018-06-24 01:36 | ED.PDOC ---
General ED Provider: Dr. CECILIO DASILVA-ER Chief Complaint: Knee Pain/Injury Stated Complaint: i hurt my knee Time Seen by Physician: 01:34 Mode of Arrival: Wheelchair Information Source: Patient, Family Exam Limitations: No limitations Primary Care Provider: CECILIO DASILVA Nursing and Triage Documentation Reviewed and Agree: Yes Does patient meet sepsis criteria?: No System Inflammatory Response Syndrome: Not Applicable Sepsis Protocol: For patient's 13 years and over: Temp is 96.8 and below OR 101 and greater Pulse >90 BPM Resp >20/minute Acutely Altered Mental Status Are patient's symptoms suggestive of a new infection, such as: -Pneumonia -Skin, Soft Tissue -Endocarditis -UTI -Bone, Joint Infection -Implantable Device -Acute Abdominal Infection -Wound Infection -Meningitis -Blood Stream Catheter Infection -Unknown Musculoskeletal Complaint Exam - Knee Pain Complaint/Exam Mechanism of Injury: Reports: Trauma Onset/Duration: 30 min Symptoms Are: Still present Associated Signs and Symptoms: Denies: Swelling, Redness, Bruising, Fever, Weakness, Numbness, Tingling Able to Bear Weight: No Septic Arthritis Risk Factors: Reports: None Gout Risk Factors: Reports: None Knee Findings: Present: Swelling, Tenderness, Limited range of motion Pastora Test Positive: No Rogelio Test Positive: No Differential Diagnoses: Closed Fracture Review of Systems - Review Of Systems Constitutional: Reports: No symptoms Eyes: Reports: No symptoms Ears, Nose, Mouth, Throat: Reports: No symptoms Respiratory: Reports: No symptoms Cardiac: Reports: No symptoms GI: Reports: No symptoms : Reports: No symptoms Musculoskeletal: Reports: Joint pain, Joint swelling Skin: Reports: No symptoms Neurological: Reports: No symptoms Endocrine: Reports: No symptoms Hematologic/Lymphatic: Reports: No symptoms All Other Systems: Reviewed and Negative Past Medical History - Past Medical History Previously Healthy: Yes Endocrine: Reports: Dyslipidemia Cardiovascular: Reports: Hypertension Respiratory: Reports: None Hematological: Reports: None Gastrointestinal: Reports: None Genitourinary: Reports: CKD Neuro/Psych: Reports: None Musculoskeletal: Reports: None Cancer: Reports: None Last Menstrual Period: UNKNOWN - Surgical History 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 - Family History Family History: Reports: None - Social History Smoking Status: Never smoker Hx Substance Use: No Alcohol Screening: None - Immunizations Tetanus Shot up to Date: Yes Physical Exam - Physical Exam Appearance: Well-appearing, No pain distress, Well-nourished Eyes: MARINO, EOMI, Conjunctiva clear ENT: Ears normal, Nose normal, Oropharynx normal Respiratory: Airway patent, Breath sounds clear, Breath sounds equal, Respirations nonlabored Cardiovascular: RRR, Pulses normal, No rub, No murmur GI/: Soft, Nontender, No masses, Bowel sounds normal, No Organomegaly Musculoskeletal: Normal strength, ROM intact, No edema, No calf tenderness Skin: Warm, Dry, Normal color Neurological: Sensation intact, Motor intact, Reflexes intact, Cranial nerves intact, Alert, Oriented Interpretation - Radiology Interpretation Radiology Interpretation By: ED Physician Radiology Results: Positive Exam Interpreted: CT Scan Critical Care Note - Critical Care Note Total Time (mins): 0 Course - Course Orders, Labs, Meds: Orders Category Date Time Status Splint [ED SPLINT APPLICATION] .ONCE EMERGENCY 06/24/18 01:33 Ordered Hydrocodone Bit/Acetaminophen [[place] 7.5-325] MEDS 06/24/18 01:33 Stat 1 tab PO ONCE STA CT KNEE RIGHT WITHOUT CONTRAST Stat RADS 06/24/18 00:45 Completed Vital Signs: Temp Pulse Resp BP Pulse Ox 06/24/18 00:04 99.1 F 63 16 183/75 H 97 Departure - Departure Time of Disposition: 01:36 Disposition: HOME SELF-CARE Discharge Problem: Injury of knee Instructions: Knee Pain (ED) Condition: Good Pt referred to PMD for follow-up: Yes IPMP verified?: No Allergies/Adverse Reactions: Allergies No Known Allergies Allergy (Verified 06/24/18 00:18) Home Medications: Ambulatory Orders Aspirin 81 mg PO DAILY 02/18/18 Cholecalciferol (Vitamin D3) [Vitamin D] 5,000 unit PO WEEKLY 02/18/18 Digoxin 250 mcg PO DAILY 02/18/18 Furosemide [Lasix] 20 mg PO EVERY OTHER DAY 02/18/18 Linagliptin [Tradjenta] 5 mg PO BEDTIME 02/18/18 Lovastatin [Altoprev] 40 mg PO BEDTIME 02/18/18 Metoprolol Succinate 25 mg PO BID 02/18/18 Omeprazole [Prilosec] 20 mg PO EVERY OTHER DAY 02/18/18 Latanoprost/Pf [Latanoprost 0.005% Eye Drop] 1 drop OP BEDTIME 02/25/18 Mirtazapine 15 mg PO BEDTIME 02/25/18 Losartan Potassium [Cozaar] 100 mg PO DAILY #30 tablet 02/28/18 Acetaminophen 650 mg PO Q4-6H PRN 06/24/18 Acetaminophen/Diphenhydramine [Tylenol Pm Ex-Strength Caplet] 1 each PO BEDTIME 06/24/18 Brimonidine Tartrate [Brimonidine Tartrate 0.2% Opth Yulia] 1 drop OP BEDTIME Brimonidine Tartrate/Timolol [Combigan 0.2%-0.5% Eye Drops] 1 drop OP BID Guaifen/Dextromethorphan/PE [Robitussin Cough-Cold Cf Liq] 5 ml PO Q6H PRN 06/24 Insulin Glargine,Hum.rec.anlog [Basaglar Kwikpen U-100] 40 unit SQ DAILY Polyethylene Glycol 3350 [Miralax] 17 gm PO DAILY PRN 06/24/18 Transfer Form Completed: Yes Disposition Discussed With: Patient, Family
== END 2018-06-24 02:20 | disposition short-term general hospital (02) ==
LOC: ED 00:04
DX: S82.091A Other fracture of right patella, initial encounter for closed fracture (principal); W19.XXXA Unspecified fall, initial encounter
CPT/HCPCS: 99285

== ENCOUNTER 2018-09-04 07:46 | Emergency (ER) ==
[2018-09-04 08:07] VITALS: BP 161/67; TEMP 97.4; BMI 27.0
[2018-09-04] MEDS ORDERED: TETRACAINE 0.5% UNIT-DOSE OP ONE (08:31)
[2018-09-04] MEDS ORDERED: TETRACAINE 0.5% OPTH SOL OP STA (08:39)
--- NOTE | 2018-09-04 09:15 | CT ---
EXAM: CT BRAIN HISTORY: Fall TECHNIQUE: CT brain without intravenous contrast. 5-mm axial sections with Reformations. COMPARISON: 02/25/2018 FINDINGS: There is generalized atrophy. There is moderate periventricular and deep white matter low attenuatio n which although nonspecific is suggestive of chronic microvascular ischemic change. Interval placem ent of a right ventriculostomy tube ending in the anterior horn of the right lateral ventricle. The ventricles are stable in size, mildly dilated. No intracranial hemorrhage or acute infarction is daniel ntified. There is no mass effect or midline shift. No skull fracture is identified. Mastoid air ce lls are aerated. Visualized paranasal sinuses are clear. There is soft tissue swelling in the left periorbital region consistent with peripheral soft tissue hematoma. IMPRESSION: 1. No acute intracranial process or injury identified. No skull fracture. 2. Left periorbital peripheral soft tissue hematoma.
--- NOTE | 2018-09-04 09:21 | CT ---
EXAM: CT FACIAL BONES HISTORY: Fall. TECHNIQUE: CT facial bones without contrast. 3-mm axial sections. Coronal and sagital reformations . FINDINGS: No fracture is identified. Orbits are intact. The intraorbital fat is preserved. Mandible is intac t and TMJ joints are set normally. There is significant swelling in the left periorbital peripheral soft tissues consistent with hematoma measuring up to about 1.4 cm in axial dimension/thickness. IMPRESSION: 1. No fracture identified. 2. Left periorbital peripheral soft tissue hematoma.
--- NOTE | 2018-09-04 09:23 | CT ---
EXAM: CT of the cervical spine without contrast History: Head and neck trauma. Comparison: CT cervical spine 02/18/2018 Technique: Multiplanar CT images through the cervical spine were obtained without the administration of IV contrast Findings: The visualized upper lungs are clear. The visualized airway remains patent. Osteopenia. No acute fracture or subluxation of the cervical spine. No prevertebral soft tissue swelling. Mild to moderate multilevel disc space narrowing. Bony spinal canal is not significantly compromised. N o significant interval change in the multilevel bilateral bony neural foraminal narrowing secondary t o uncovertebral and facet hypertrophy. Impression: No acute osseous abnormality of the cervical spine
--- NOTE | 2018-09-04 09:25 | CT ---
EXAM: CT of the chest without contrast History: Chest trauma. Comparison: Chest CT 02/25/2018 Technique: Multiplanar CT images through the thorax were obtained without the administration of IV c ontrast Findings: Heart is mildly enlarged. No pericardial effusion. No thoracic aortic aneurysm. Partial ly calcified mediastinal lymph nodes again noted. No axillary lymphadenopathy. Evaluation for hilar lymph nodes is limited due to lack of contrast administration. Scattered areas of subsegmental atel ectasis again appreciated. No consolidation. No pleural fluid and no pneumothorax. No suspicious l balaji masses or lung nodules. Within the visualized upper abdomen, no grossly acute findings. Cyst again seen within the left kidn ey. Sternotomy wires. No acute osseous abnormalities. 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
--- NOTE | 2018-09-04 09:29 | ED.PDOC ---
General ED Provider: Dr. ANGELINA BUSTAMANTE Chief Complaint: Fall Stated Complaint: fall head injury Time Seen by Physician: 08:00 (onset of fall is unknown) Mode of Arrival: Ambulance Information Source: Patient, Family, EMT Exam Limitations: No limitations Primary Care Provider: CECILIO DASILVA Referred to ED by: Other (SEE PHOTOSDENIED NECK PAIN, NO BACK OR PELVIC PAIN REPORTED ) Nursing and Triage Documentation Reviewed and Agree: Yes Does patient meet sepsis criteria?: No If yes, has appropriate treatment been initiated?: No System Inflammatory Response Syndrome: Not Applicable (sometimes last night pt had fallen found by worker this AM) Sepsis Protocol: For patient's 13 years and over: Temp is 96.8 and below OR 101 and greater Pulse >90 BPM Resp >20/minute Acutely Altered Mental Status Are patient's symptoms suggestive of a new infection, such as: -Pneumonia -Skin, Soft Tissue -Endocarditis -UTI -Bone, Joint Infection -Implantable Device -Acute Abdominal Infection -Wound Infection -Meningitis -Blood Stream Catheter Infection -Unknown Trauma/Injury Complaint Exam - Trauma Complaint/Exam Location of Pain or Injury: Reports: Head, Face Mechanism of Injury: Reports: Fall Onset/Duration: FALL POSSIBLE LAST NIGHT Symptoms Are: Still present Timing of Treatment: Delayed Initial Severity: Moderate Current Severity: Moderate Aggravating: Reports: None Alleviating: Reports: None Associated Signs and Symptoms: Reports: Bruising (SEE PHOTOS ), Swelling (SEE PHOTOS) Related History: Reports: Anticoagulants (ONLY ASA 81 MG) Penetrating Injury Risk Factors: Reports: None Related Surgical History: Reports: None Nexus Low Risk Criteria: No post-midline CS tender, No evidence of intoxicat., No Altered LOC, No focal neuro deficit Glascow Coma Scale (see protocol): 15 Trauma Findings: Absent: Hemotympanum, Nasal deformity, Dental tenderness, Neck tenderness, Neck spasm, SubQ Air, Labored respirations, Decreased breath sounds , Muffled heart sounds, Weak pulses, Absent pulses, Abdominal distention, Pelvic tenderness, Pelvic instability, Back tenderness, Back malalignment, Limited ROM, Agitated, Uncooperative Skin Findings: Present: Tenderness Differential Diagnoses: Contusions (ORBIT), Hematoma Review of Systems - Review Of Systems Constitutional: Reports: No symptoms Eyes: Reports: No symptoms Ears, Nose, Mouth, Throat: Reports: No symptoms Respiratory: Reports: No symptoms Cardiac: Reports: No symptoms GI: Reports: No symptoms : Reports: No symptoms Musculoskeletal: Reports: No symptoms Skin: Reports: Bruising (LEFT ORBIT WITH EDEMA) Neurological: Reports: No symptoms Endocrine: Reports: No symptoms Hematologic/Lymphatic: Reports: No symptoms All Other Systems: Reviewed and Negative Past Medical History - Past Medical History Previously Healthy: Yes Endocrine: Reports: Dyslipidemia Cardiovascular: Reports: Hypertension Respiratory: Reports: None Hematological: Reports: None Gastrointestinal: Reports: None Genitourinary: Reports: CKD Neuro/Psych: Reports: None Musculoskeletal: Reports: None Cancer: Reports: None Last Menstrual Period: NA - Surgical History 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 - Family History Family History: Reports: None - Social History Smoking Status: Never smoker Hx Substance Use: No Alcohol Screening: None Physical Exam - Physical Exam Appearance: Ill-appearing Ill-appearing: Moderate Pain Distress: Mild (LEFT ORBIT PAIN AND EDEMA) Eyes: MARINO, EOMI, Conjunctiva clear ( ORBIT CONTUSED, LEFT SEE PHOTOS) ENT: Ears normal, Nose normal, Oropharynx normal Respiratory: Airway patent, Breath sounds clear, Breath sounds equal, Respirations nonlabored Cardiovascular: RRR, Pulses normal, No rub, No murmur GI/: Soft, Nontender, No masses, Bowel sounds normal, No Organomegaly Musculoskeletal: Normal strength, ROM intact, No edema, No calf tenderness Skin: Warm, Dry, Normal color Neurological: Sensation intact, Motor intact, Reflexes intact, Cranial nerves intact, Alert, Oriented Psychiatric: Affect appropriate, Mood appropriate Interpretation - Radiology Interpretation Radiology Interpretation By: Radiologist Exam Interpreted: CT Scan (BRAIN, C SPINE, FACIAL BONES ) Physician Notification - Case Discussed Physician Notified: PMD Time of Notification: 09:34 Critical Care Note - Critical Care Note Total Time (mins): 0 Course - Course Hematology/Chemistry: 09/04/18 07:20 09/04/18 07:20 Orders, Labs, Meds: Lab Review 09/04/18 09/04/18 09/04/18 07:20 07:20 07:20 WBC 9.09 RBC 4.31 Hgb 12.7 Hct 36.5 L MCV 84.7 MCH 29.5 MCHC 34.8 RDW Coeff of Aroldo 12.2 Plt Count 269 Immature Gran % (Auto) 0.8 Neut % (Auto) 80.6 Lymph % (Auto) 9.4 L [place] % (Auto) 7.0 Eos % (Auto) 1.5 Baso % (Auto) 0.7 Immature Gran # (Auto) 0.1 Neut # (Auto) 7.3 H Lymph # (Auto) 0.9 [place] # (Auto) 0.6 Eos # (Auto) 0.1 Baso # (Auto) 0.1 PT 9.9 INR 0.99 APTT 23.4 L Sodium 127.9 L Potassium 3.91 Chloride 92.7 L Carbon Dioxide 23.8 Anion Gap 15.31 BUN 15.8 Creatinine 0.75 Estimated GFR (MDRD) 74.00 BUN/Creatinine Ratio 21.06 Glucose 229.3 H Calcium 9.75 Total Bilirubin 0.66 AST 21.8 ALT 19.4 Alkaline Phosphatase 76.7 Total Creatine Kinase 49.0 Troponin I < 0.012 Total Protein 7.57 Albumin 4.65 Globulin 2.92 Albumin/Globulin Ratio 1.59 Urine Color Urine Clarity Urine pH Ur Specific [place] Urine Protein Urine Glucose (UA) Urine Ketones Urine Blood Urine Nitrite Urine Bilirubin Urine Urobilinogen Ur Leukocyte Esterase Urine Microscopic RBC Urine Microscopic WBC Ur Squamous Epith Cells Digoxin 09/04/18 09/04/18 07:25 08:25 WBC RBC Hgb Hct MCV MCH MCHC RDW Coeff of Aroldo Plt Count Immature Gran % (Auto) Neut % (Auto) Lymph % (Auto) [place] % (Auto) Eos % (Auto) Baso % (Auto) Immature Gran # (Auto) Neut # (Auto) Lymph # (Auto) [place] # (Auto) Eos # (Auto) Baso # (Auto) PT INR APTT Sodium Potassium Chloride Carbon Dioxide Anion Gap BUN Creatinine Estimated GFR (MDRD) BUN/Creatinine Ratio Glucose Calcium Total Bilirubin AST ALT Alkaline Phosphatase Total Creatine Kinase Troponin I Total Protein Albumin Globulin Albumin/Globulin Ratio Urine Color Yellow Urine Clarity Clear Urine pH 6.5 Ur Specific [place] 1.015 Urine Protein 2+ Urine Glucose (UA) 1+ Urine Ketones Negative Urine Blood 1+ Urine Nitrite Negative Urine Bilirubin Negative Urine Urobilinogen 1.0 Ur Leukocyte Esterase 1+ Urine Microscopic RBC 5-10 Urine Microscopic WBC 10-20 Ur Squamous Epith Cells 5-10 Digoxin 0.62 L Orders Category Date Time Status EKG-(ED ONLY) Stat CARDIO 09/04/18 09:26 Ordered BLOOD CULTURE (ED ONLY) Stat LAB 09/04/18 Ordered CBC W/ AUTO DIFF Stat LAB 09/04/18 08:17 Ordered COMPREHENSIVE METABOLIC PANEL Stat LAB 09/04/18 08:17 Ordered CREATINE KINASE Stat LAB 09/04/18 08:17 Ordered DIGOXIN Stat LAB 09/04/18 08:19 Ordered LACTIC ACID Stat LAB 09/04/18 08:19 Ordered PARTIAL THROMBOPLASTIN TIME Stat LAB 09/04/18 08:17 Ordered PROCALCITONIN Stat LAB 09/04/18 08:19 Ordered PT WITH INR Stat LAB 09/04/18 08:17 Ordered TROPONIN I Stat LAB 09/04/18 08:17 Ordered URINALYSIS C & S IF INDICATED Stat LAB 09/04/18 08:17 Uncollected URINE CULTURE Stat LAB 09/04/18 08:25 Received Tetracaine HCl [Tetracaine 0.5% Opth Yulia] MEDS 09/04/18 08:39 Discontinued 2 drop OP ONCE STA Tetracaine HCl/Pf [Tetracaine 0.5% Unit-Dose] MEDS 09/04/18 08:31 Discontinued 1 drop OP .STK-MED ONE CT CERVICAL SPINE W/O CONTRAST Stat RADS 09/04/18 08:[address] CHEST W/O CONTRAST Stat RADS 09/04/18 08:[address] HEAD W/O CONTRAST Stat RADS 09/04/18 08:[address] MAXILLOFACIAL W/O CONTRAST Stat RADS 09/04/18 08:18 Ordered Medications Discontinued Medications Generic Name Dose Route Start Last Admin Trade Name Freq PRN Reason Stop Dose Admin Tetracaine HCl 2 drop 09/04/18 08:39 09/04/18 08:43 Tetracaine 0.5% Opth Yulia OP 09/04/18 08:40 2 drop ONCE STA Administration Vital Signs: Temp Pulse Resp BP Pulse Ox 09/04/18 08:00 97.4 F L 70 16 161/67 H 96 Departure - Departure Time of Disposition: 09:34 (DOCTOR YENFIER SEEN THE PT IN THE ED ) Disposition: HOME SELF-CARE Discharge Problem: Edema of left orbit, Hyponatremia Facial contusion Qualifiers: Encounter type: initial encounter Qualified Code(s): S00.83XA - Contusion of other part of head, initial encounter Diabetes Qualifiers: Diabetes mellitus type: other specified (including MAYRA) Head injury Qualifiers: Encounter type: initial encounter Qualified Code(s): S09.90XA - Unspecified injury of head, initial encounter Instructions: Head Injury (ED), Concussion (ED) Condition: Good Pt referred to PMD for follow-up: Yes IPMP verified?: No Allergies/Adverse Reactions: Allergies No Known Allergies Allergy (Verified 06/24/18 00:18) Home Medications: Ambulatory Orders Aspirin 81 mg PO DAILY 02/18/18 Cholecalciferol (Vitamin D3) [Vitamin D] 5,000 unit PO WEEKLY 02/18/18 Digoxin 250 mcg PO DAILY 02/18/18 Furosemide [Lasix] 20 mg PO EVERY OTHER DAY 02/18/18 Linagliptin [Tradjenta] 5 mg PO BEDTIME 02/18/18 Lovastatin [Altoprev] 40 mg PO BEDTIME 02/18/18 Metoprolol Succinate 25 mg PO BID 02/18/18 Omeprazole [Prilosec] 20 mg PO EVERY OTHER DAY 02/18/18 Latanoprost/Pf [Latanoprost 0.005% Eye Drop] 1 drop OP BEDTIME 02/25/18 Mirtazapine 15 mg PO BEDTIME 02/25/18 Losartan Potassium [Cozaar] 100 mg PO DAILY #30 tablet 02/28/18 Acetaminophen 650 mg PO Q4-6H PRN 06/24/18 Acetaminophen/Diphenhydramine [Tylenol Pm Ex-Strength Caplet] 1 each PO BEDTIME 06/24/18 Brimonidine Tartrate/Timolol [Combigan 0.2%-0.5% Eye Drops] 1 drop OP BID Insulin Glargine,Hum.rec.anlog [Basaglar Kwikpen U-100] 40 unit SQ DAILY Polyethylene Glycol 3350 [Miralax] 17 gm PO DAILY PRN 06/24/18 Hydrocodone/Acetaminophen [Hydrocodon-Acetaminoph 7.5-325] 1 each PO Q6HR PRN Insulin Aspart [Novolog] 5 unit SQ TID 09/04/18 Loperamide HCl [Loperamide] 2 mg PO Q6HR PRN 09/04/18 Loratadine 10 mg PO DAILY PRN 09/04/18 Polyvinyl Alcohol [Artificial Tears] 15 ml OP BID 09/04/18 Disposition Discussed With: Patient, Family
[2018-09-04] MEDS ORDERED: ROCEPHIN 1 GM in SODIUM CHLORIDE 50 ML IV STA (09:40)
[2018-09-04] MEDS ORDERED: ROCEPHIN ONE (10:12)
== END 2018-09-04 10:45 | disposition home or self-care (01) ==
LOC: ED 07:46
DX: S00.83XA Contusion of other part of head, initial encounter (principal); H05.222 Edema of left orbit; E87.1 Hypo-osmolality and hyponatremia; E11.9 Type 2 diabetes mellitus without complications; W19.XXXA Unspecified fall, initial encounter; N18.9 Chronic kidney disease, unspecified; I10 Essential (primary) hypertension; E78.5 Hyperlipidemia, unspecified; Z79.899 Other long term (current) drug therapy; Z95.1 Presence of aortocoronary bypass graft
CPT/HCPCS: 36415; 80053; 80162; 81001; 82550; 84484; 85025; 85610; 85730; 87086; 93005; 93010; 96365; 99285

== ENCOUNTER 2018-09-04 10:44 | Outpatient (CLI) ==
[2018-09-04 08:07] VITALS: BMI 27.0
== END 2018-09-04 11:06 | disposition short-term general hospital (02) ==
LOC: AMBL 10:44
PROVIDERS: ATTEND Internal Medicine
DX: S00.12XA Contusion of left eyelid and periocular area, initial encounter (principal); S00.83XA Contusion of other part of head, initial encounter; W19.XXXA Unspecified fall, initial encounter

== ENCOUNTER 2018-11-06 06:29 | Emergency (ER) ==
[2018-11-06 06:44] VITALS: BP 191/91; TEMP 97.1; BMI 25.6
--- NOTE | 2018-11-06 08:11 | CT ---
EXAM: CT BRAIN HISTORY: Fall, scalp laceration TECHNIQUE: CT brain without intravenous contrast. 5-mm axial sections with Reformations. COMPARISON: 09/04/2018 FINDINGS: There is an anterior approach ventriculostomy tube which appears stable. Mildly prominent ventricula r volume is stable. There is no intracranial hemorrhage or subdural hematoma. No evidence of recent large vessel distribution ischemic infarction or skull fracture. IMPRESSION: 1. No acute intracranial process or injury. No skull fracture.
--- NOTE | 2018-11-06 08:14 | ED.PDOC ---
General ED Provider: Dr. ANGELINA BUSTAMANTE Chief Complaint: Head Injury Stated Complaint: head injury fall. Time Seen by Physician: 07:00 (no neck pain) Mode of Arrival: Wheelchair Information Source: Patient, Family Exam Limitations: No limitations Primary Care Provider: CECILIO DASILVA Referred to ED by: Other (no L.O.C ) Nursing and Triage Documentation Reviewed and Agree: Yes Does patient meet sepsis criteria?: No System Inflammatory Response Syndrome: Not Applicable Sepsis Protocol: For patient's 13 years and over: Temp is 96.8 and below OR 101 and greater Pulse >90 BPM Resp >20/minute Acutely Altered Mental Status Are patient's symptoms suggestive of a new infection, such as: -Pneumonia -Skin, Soft Tissue -Endocarditis -UTI -Bone, Joint Infection -Implantable Device -Acute Abdominal Infection -Wound Infection -Meningitis -Blood Stream Catheter Infection -Unknown Trauma/Injury Complaint Exam - Trauma Complaint/Exam Location of Pain or Injury: Reports: Head, Neck, Chest Mechanism of Injury: Reports: Fall (STANDING POSTION ) Onset/Duration: THIS MORNING Timing of Treatment: Immediate Initial Severity: Mild Current Severity: Mild Character: Reports: Dull Aggravating: Reports: None Alleviating: Reports: None Associated Signs and Symptoms: Denies: LOC, Confusion, Memory loss, Lethargy, Vomiting, Bleeding, Bruising, Swelling, Extremity disuse, Painful respiration, Hoarseness, Dysphagia, Hemoptysis, Significant blood loss Related Surgical History: Reports: None Nexus Low Risk Criteria: No post-midline CS tender, No evidence of intoxicat., No Altered LOC, No focal neuro deficit, No distracting injuries Glascow Coma Scale (see protocol): 15 Review of Systems - Review Of Systems Constitutional: Reports: No symptoms Eyes: Reports: No symptoms Ears, Nose, Mouth, Throat: Reports: No symptoms Respiratory: Reports: No symptoms Cardiac: Reports: No symptoms GI: Reports: No symptoms : Reports: No symptoms Musculoskeletal: Reports: No symptoms Skin: Reports: Other (LACERATION OF SCALP) Neurological: Reports: No symptoms Endocrine: Reports: No symptoms Hematologic/Lymphatic: Reports: No symptoms All Other Systems: Reviewed and Negative Past Medical History - Past Medical History Previously Healthy: Yes Endocrine: Reports: Dyslipidemia Cardiovascular: Reports: Hypertension Respiratory: Reports: None Hematological: Reports: None Gastrointestinal: Reports: None Genitourinary: Reports: CKD Neuro/Psych: Reports: None Musculoskeletal: Reports: None Cancer: Reports: None Last Menstrual Period: na - Surgical History 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 - Family History Family History: Reports: None - Social History Smoking Status: Never smoker Hx Substance Use: No Alcohol Screening: None - Immunizations Tetanus Shot up to Date: (unknown) Physical Exam - Physical Exam Appearance: Well-appearing, No pain distress, Well-nourished Eyes: MARINO, EOMI, Conjunctiva clear ENT: Ears normal, Nose normal, Oropharynx normal Respiratory: Airway patent, Breath sounds clear, Breath sounds equal, Respirations nonlabored Cardiovascular: RRR, Pulses normal, No rub, No murmur GI/: Soft, Nontender, No masses, Bowel sounds normal, No Organomegaly Musculoskeletal: Normal strength, ROM intact, No edema, No calf tenderness Skin: Warm, Dry (1.7CM LACERATION POST SCALP NO F/B. SEE PHOTOS BEFORE AND AFTER ) Neurological: Sensation intact, Motor intact, Reflexes intact, Cranial nerves intact, Alert, Oriented Psychiatric: Affect appropriate, Mood appropriate Interpretation - Radiology Interpretation Radiology Interpretation By: Radiologist Radiology Results: No acute changes Exam Interpreted: CT Scan (C SPINE AND BRAIN BOTH REPORTED TO HAVE NO ACUTE CHANGES ) Procedures - Laceration/Wound Repair No standard instances Wound Description: Linear Wound Length (cm): 1.7CM Wound Width: 2MM Wound Depth: 2MM Wound Explored: Clean Wound Irrigated: Yes Wound Prep: Saline Anesthesia: Lidocaine (PLAIN 1ML) Undermining: Minimal Wound Margins: Revised Wound Repaired With: Kalia Number of Kalia: 5 Layer Closure?: No Sterile Dressing Applied?: No Splint Applied?: No Progress: NO F/B NOTED Critical Care Note - Critical Care Note Total Time (mins): 0 Course - Course Orders, Labs, Meds: Orders Category Date Time Status CT CERVICAL SPINE W/O CONTRAST Stat RADS 11/06/18 07:[address] CHEST W/O CONTRAST Stat RADS 11/06/18 07:[address] HEAD W/O CONTRAST Stat RADS 11/06/18 07:[address] THORACIC SPINE W/O CONTRAST Stat RADS 11/06/18 07:14 Taken Vital Signs: Temp Pulse Resp BP Pulse Ox 11/06/18 06:33 97.1 F L 68 20 191/91 H 97 Departure - Departure Time of Disposition: 09:00 Disposition: HOME SELF-CARE Discharge Problem: Injury of head Laceration of scalp Qualifiers: Encounter type: initial encounter Qualified Code(s): S01.01XA - Laceration without foreign body of scalp, initial encounter Instructions: Laceration (DC), Head Injury (ED) Condition: Good Pt referred to PMD for follow-up: Yes IPMP verified?: No Additional Instructions: Please call your Family Physician as soon as possible to schedule a follow-up appointment. Allergies/Adverse Reactions: Allergies No Known Allergies Allergy (Verified 06/24/18 00:18) Home Medications: Ambulatory Orders Aspirin 81 mg PO DAILY 02/18/18 Cholecalciferol (Vitamin D3) [Vitamin D] 5,000 unit PO WEEKLY 02/18/18 Digoxin 250 mcg PO DAILY 02/18/18 Furosemide [Lasix] 20 mg PO EVERY OTHER DAY 02/18/18 Linagliptin [Tradjenta] 5 mg PO BEDTIME 02/18/18 Lovastatin [Altoprev] 40 mg PO BEDTIME 02/18/18 Metoprolol Succinate 25 mg PO BID 02/18/18 Omeprazole [Prilosec] 20 mg PO EVERY OTHER DAY 02/18/18 Latanoprost/Pf [Latanoprost 0.005% Eye Drop] 1 drop OP BEDTIME 02/25/18 Mirtazapine 15 mg PO BEDTIME 02/25/18 Losartan Potassium [Cozaar] 100 mg PO DAILY #30 tablet 02/28/18 Acetaminophen 650 mg PO Q4-6H PRN 06/24/18 Brimonidine Tartrate/Timolol [Combigan 0.2%-0.5% Eye Drops] 1 drop OP BID Insulin Glargine,Hum.rec.anlog [Basaglar Kwikpen U-100] 40 unit SQ DAILY Polyethylene Glycol 3350 [Miralax] 17 gm PO DAILY PRN 06/24/18 Insulin Aspart [Novolog] 5 unit SQ TID 09/04/18 Loperamide HCl [Loperamide] 2 mg PO Q6HR PRN 09/04/18 Loratadine 10 mg PO DAILY PRN 09/04/18 Polyvinyl Alcohol [Artificial Tears] 15 ml OP BID 09/04/18 Disposition Discussed With: Patient, Family
--- NOTE | 2018-11-06 08:17 | CT ---
EXAM: CT cervical spine. HISTORY: Fall, neck pain. TECHNIQUE: CT cervical spine without contrast. Detailed axial sections. Coronal and sagittal re-fo rmations. COMPARISON: 09/04/2018 FINDINGS: Bones appear demineralized. There is no fracture identified. Vertebral body heights and alignment a ppear normal. Facet joints are covered. Lateral masses of C1 and C2 are normally aligned and the o dontoid process is intact. Diffuse degenerative disc and facet disease. No traumatic central canal stenosis or paraspinal hematoma. IMPRESSION: 1. No acute fracture or subluxation.
[2018-11-06] MEDS ORDERED: LIDOCAINE HCL 1% SDV SUBCUT STA (08:18)
--- NOTE | 2018-11-06 08:23 | CT ---
EXAM: CT THORAX HISTORY: Fall, back pain. TECHNIQUE: CT thorax without intravenous contrast. Multiplanar images presented. COMPARISON: 09/04/2018 CT chest FINDINGS: Bones appear demineralized. There is no fracture or loss of vertebral body height. No spondylolisth esis. There is no scoliosis, traumatic central canal stenosis or paraspinal hematoma. See also same day CT thorax report. IMPRESSION: 1. No acute fracture or subluxation identified.
--- NOTE | 2018-11-06 08:33 | CT ---
EXAM: CT THORAX HISTORY: Fall, pain. TECHNIQUE: CT thorax without intravenous contrast. Multiplanar images presented. COMPARISON: 09/04/2018 FINDINGS: Heart size is approaching upper limit normal. No pericardial effusion is seen. There is mild to mod erate atherosclerotic disease. Limited evaluation of the mediastinum and hilar structures without th e administration of intravenous contrast agent. There are a few scattered nonspecific mediastinal an d subcarinal lymph nodes, some which have partial calcification. Respiratory motion degrades lung targeted image quality. There is no pneumothorax or pleural fluid i dentified. There is mild basilar atelectasis suggested on the left. A few calcified granulomas are noted. Normal vascularity. The bones reveal no acute fracture or deformity. Arthropathy is noted of the spine and the shoulders . Incidental note of a 3.1 cm cystic appearing mass off of the anterior left renal cortex which prob ably represents a cyst. This can be correlated with renal ultrasound as follow-up. IMPRESSION: 1. No acute injuries identified. 2. Atherosclerotic disease. 3. Nonspecific mediastinal lymph nodes. 4. Probable left renal cortical cyst.
== END 2018-11-06 08:48 | disposition home or self-care (01) ==
LOC: ED 06:29
DX: S01.01XA Laceration without foreign body of scalp, initial encounter (principal); S09.90XA Unspecified injury of head, initial encounter; W19.XXXA Unspecified fall, initial encounter; R07.89 Other chest pain; M54.2 Cervicalgia
CPT/HCPCS: 99283

== ENCOUNTER 2021-12-19 20:08 | Inpatient (IN) ==
--- NOTE | 2021-12-19 20:10 | ED.PDOC ---
General ED Provider: Dr. DALIA CARDONA MD Chief Complaint: Fever Stated Complaint: Patient has had fever to 101.2, weakness and nasal congestion for 3 days. She tested positive for covid today. Denies chills, malaise, headache, sore throat, cough, dyspnea, chest pain, syncope, palpitations, nausea, emesis, diarrhea, abdominal pain or urinary tract symptoms. Patient having difficulty ambulating and has fallen twice in yesterday and today. Time Seen by Provider: 12/19/21 20:08 Primary Care Provider: CECILIO DASILVA Nursing and Triage Documentation Reviewed and Agree: Yes Does patient meet sepsis criteria?: No System Inflammatory Response Syndrome: Not Applicable Sepsis Protocol: For patient's 13 years and over: Temp is 96.8 and below OR 101 and greater Pulse >90 BPM Resp >20/minute Acutely Altered Mental Status Are patient's symptoms suggestive of a new infection, such as: -Pneumonia -Skin, Soft Tissue -Endocarditis -UTI -Bone, Joint Infection -Implantable Device -Acute Abdominal Infection -Wound Infection -Meningitis -Blood Stream Catheter Infection -Unknown Miscellaneous Complaint Exam Febrile Illness/Adult Complaint/Exam Onset/Duration: 3-4 days Symptoms Are: Still present Timing: Constant Highest Temperature Recorded: 101.2 Initial Severity: Mild Current Severity: Mild Aggravating: Reports None Alleviating: Reports OTC Meds Associated Signs and Symptoms: Denies Headache, Fluid intake, Short of air, Cough, Sore throat, Nausea, Vomiting, Chills, Diaphoresis, Dysuria, Arthralgia, Stiff neck, Myalgia, Rash or Altered mental status Pseudomonas Risk Factors: Reports None Serious Bacterial Infection Risk Factors: Reports None Current Antibiotic Use: No Related Surgical History: None Review of Systems Review Of Systems Constitutional: Reports Fever, Weakness and Loss of appetite Eyes: Reports No symptoms Ears, Nose, Mouth, Throat: Reports Nose discharge Respiratory: Reports No symptoms Cardiac: Reports No symptoms GI: Reports No symptoms : Reports No symptoms Musculoskeletal: Reports No symptoms Skin: Reports No symptoms Neurological: Reports Weakness Endocrine: Reports No symptoms Hematologic/Lymphatic: Reports No symptoms All Other Systems: Reviewed and Negative [facility] Social History Smoking and tobacco status: Never smoker Substance use type: does not use History of recent travel: No Female Reproductive History Menstrual Hx Hysterectomy: No Hx Tubal Ligation: No Physical Exam Physical Exam Appearance: Reports Ill-appearing and No pain distress Ill-appearing: Moderate Pain Distress: None Eyes: Reports MARINO and EOMI ENT: Reports Rhinorrhea Neck: Supple Respiratory: Reports Airway patent, Breath sounds clear and Breath sounds equal Cardiovascular: Reports RRR, No rub and No murmur GI/: Reports Soft, Nontender, No masses and Bowel sounds normal Musculoskeletal: Reports ROM intact, No edema and No calf tenderness Skin: Reports Warm, Dry and Normal color Neurological: Reports Sensation intact, Alert and Oriented Psychiatric: Reports Affect appropriate and Mood appropriate Physician Notification Case Discussed Physician Notified: Dr Calzada Time of Notification: 20:53 Comments: Patient will be admitted for IV fluid therapy and paxlovid. She is a high risk for fall. Critical Care Note Critical Care Note Total Critical Care Time (mins): 0 Course Course Hematology/Chemistry: 12/19/21 20:33 12/19/21 20:33 Orders, Labs, Meds: Lab Review 12/19/21 12/19/21 20:33 20:33 WBC 8.62 RBC 4.18 L Hgb 12.6 Hct 37.0 MCV 88.5 MCH 30.1 MCHC 34.1 RDW Coeff of Aroldo 13.6 Plt Count 158 Immature Gran % (Auto) 0.8 Neut % (Auto) 51.3 Lymph % (Auto) 30.5 [place] % (Auto) 15.3 H Eos % (Auto) 1.5 Baso % (Auto) 0.6 Neut # (Auto) 4.4 Lymph # (Auto) 2.6 [place] # (Auto) 1.3 Eos # (Auto) 0.1 Baso # (Auto) 0.1 Immature Gran # (Auto) 0.1 Sodium 134.0 L Potassium 3.90 Chloride 104.0 Carbon Dioxide 22.0 Anion Gap 11.90 BUN 16.0 Creatinine 1.20 Estimated GFR (MDRD) 43.00 BUN/Creatinine Ratio 13.33 Glucose 151.0 H Calcium 9.50 Total Bilirubin 0.50 AST 25.0 ALT 21.0 Alkaline Phosphatase 59.0 Total Protein 7.60 Albumin 3.90 Globulin 3.70 Albumin/Globulin Ratio 1.05 Orders Category Date Time Status CBC W/ AUTO DIFF Stat LAB 12/19/21 20:33 Completed CMP [COMPREHENSIVE METABOLIC PANEL] Stat LAB 12/19/21 20:33 Completed URINALYSIS C & S IF INDICATED Stat LAB 12/19/21 20:18 Uncollected CXR [CHEST, 1V AP ONLY] Stat RADS 12/19/21 20:18 Taken Vital Signs: Temp Pulse Resp BP Pulse Ox 12/19/21 20:30 98.2 F 77 16 144/71 H 95 Discharge Plan Discharge Patient Disposition: ADMITTED INPATIENT Discharge Problem: COVID-19 virus infection, Generalized weakness, At high risk for falls Prescriptions: No Action digoxin 250 MCG tablet 250 mcg PO DAILY omeprazole 20 MG capsule,delayed release(DR/EC) 20 mg PO EVERY OTHER DAY aspirin 81 MG tablet,chewable 81 mg PO DAILY furosemide [Lasix] 20 MG tablet 20 mg PO EVERY OTHER DAY metoprolol succinate 25 MG tablet extended release 24 hr 25 mg PO BID Altoprev 40 MG tablet extended release 24 hr 40 mg PO BEDTIME cholecalciferol (vitamin D3) [Vitamin D3] 1,000 UNIT tablet 5,000 unit PO WEEKLY Tradjenta 5 MG tablet 5 mg PO BEDTIME mirtazapine 15 MG tablet 15 mg PO BEDTIME latanoprost (PF) 7.5 ML drops 1 drp BOTHEYES BEDTIME losartan 100 MG tablet 100 mg PO DAILY Qty: 30 0RF Rx Instructions: TAKE ONE TABLET BY MOUTH DAILY THIS IS A NEW DOSE (INCREASED FROM 25 MG PO DAILY) loperamide 2 MG capsule 2 mg PO Q6HR PRN (Reason: Diarrhea) polyvinyl alcohol [Artificial Tears (polyvin alc)] 15 ML drops 15 ml BOTHEYES BID loratadine 10 MG tablet 10 mg PO DAILY PRN (Reason: Allergy Symptoms) insulin aspart U-100 [Novolog PenFill U-100 Insulin] 100 UNIT/ML cartridge 10 unit SQ TID Systane Nighttime 94-3 % Ointment 1 applic BOTHEYES BEDTIME nifedipine [Procardia XL] 30 mg tablet extended release 24hr 30 mg PO DAILY Qty: 30 0RF acetaminophen 325 MG tablet 650 mg PO Q4-6H PRN (Reason: PAIN/FEVER) polyethylene glycol 3350 [Miralax] 17 GM powder in packet 17 g PO DAILY PRN (Reason: Constipation) Basaglar KwikPen U-100 Insulin 100 UNIT/ML insulin pen 50 unit SQ DAILY Combigan 10 ML drops 1 drp BOTHEYES BID Did you review [place] CONTACT LENS LATHE OPERATOR?: Not Applicable ED Provider: DALIA CARDONA Condition: Fair Physician Progress Note: []
[2021-12-19 20:38] LABS: BASOPHILS # (AUTO) 0.1 K/uL (0-0.2); BASOPHILS % (AUTO) 0.6 % (0.0-3.0); EOSINOPHILS # (AUTO) 0.1 K/ul (0.0-0.7); EOSINOPHILS % (AUTO) 1.5 % (0.0-7.0); HEMOGLOBIN 12.6 g/dl (12.0-16.0); IMMATURE GRANULOCYTE # (AUTO) 0.1 (0.0-1.0); IMMATURE GRANULOCYTE % (AUTO) 0.8 % (0.0-5.0); LYMPHOCYTES # (AUTO) 2.6 K/uL (0.60-3.4); LYMPHOCYTES % (AUTO) 30.5 (10.0-50.0); MEAN CORPUSCULAR HEMOGLOBIN 30.1 pg (27.0-31.0); MEAN CORPUSCULAR HGB CONC 34.1 (31.8-35.4); MEAN CORPUSCULAR VOLUME 88.5 fl (81.0-99.0); MONOCYTES # (AUTO) 1.3 K/uL (0.4-2.0); MONOCYTES % (AUTO) 15.3 (0-10); NEUTROPHILS # (AUTO) 4.4 K/ul (2.0-6.9); NEUTROPHILS % (AUTO) 51.3 % (42.2-75.2); PLATELET COUNT 158 10^3/uL (140-440); RDW COEFFICIENT OF VARIATION 13.6 % (11.6-14.8); RED BLOOD COUNT 4.18 10^6/ul (4.20-5.40); WHITE BLOOD COUNT 8.62 K/ul (4.6-10.2)
[2021-12-19 20:44] VITALS: BMI 27.9
[2021-12-19 20:50] LABS: ALBUMIN 3.9 g/dL (3.5-5.0); BILIRUBIN,TOTAL 0.5 mg/dL (0.2-1.3); CALCIUM 9.5 mg/dL (8.4-10.2); CREATININE 1.2 mg/dL (0.60-1.30); POTASSIUM 3.9 mmol/L (3.5-5.1); TOTAL PROTEIN 7.6 g/dL (6.3-8.2)
--- NOTE | 2021-12-19 20:53 | DI ---
EXAM: CHEST RADIOGRAPH (1 VIEW) TECHNIQUE: Single frontal chest radiograph. HISTORY: Cough and fever. COVID-19. COMPARISON: 04/15/2019. FINDINGS: There is a benign calcified granuloma in the left upper lobe laterally. The lungs are otherwise callie r. The heart size is normal. There is calcification in the aorta consistent with atherosclerosis. Ther e are sternal wires, mediastinal clips, and a left atrial appendage clip. There is no pleural effusion. There is no pneumothorax. IMPRESSION: 1. Atherosclerosis. 2. Previous median sternotomy and left atrial appendage clip. 3. Calcified granuloma in the left upper lobe. 4. Otherwise unremarkable chest radiograph.
[2021-12-19] MEDS ORDERED: TYLENOL PO PRN (20:56)
[2021-12-19] MEDS ORDERED: PAXLOVID 2X150 MG-100 MG (EUA) PO SCH (21:00)
[2021-12-19] MEDS: D5%-NS-KCL 20 MEQ/L IV SOL 1,000 ML IV SCH (21:18)
[2021-12-20 04:14] LABS: BILIRUBIN,URINE Negative (NEGATIVE); CLARITY,URINE Clear (CLEAR); COLOR,URINE Yellow (YELLOW); GLUCOSE, URINE (UA) Negative (NEGATIVE); KETONES,URINE Negative (NEGATIVE); LEUKOCYTE ESTERASE ,URINE Negative (NEGATIVE); NITRITE,URINE Negative (NEGATIVE); PH,URINE 6.5 (5-9); PROTEIN,URINE 1+ (NEGATIVE); URINE, BLOOD Negative (NEGATIVE); UROBILINOGEN,URINE 0.2 (0.2)
[2021-12-20 05:52] LABS: BASOPHILS # (AUTO) 0.1 K/uL (0-0.2); BASOPHILS % (AUTO) 0.7 % (0.0-3.0); EOSINOPHILS # (AUTO) 0.2 K/ul (0.0-0.7); EOSINOPHILS % (AUTO) 2.6 % (0.0-7.0); IMMATURE GRANULOCYTE # (AUTO) 0.1 (0.0-1.0); IMMATURE GRANULOCYTE % (AUTO) 0.7 % (0.0-5.0); LYMPHOCYTES % (AUTO) 26.5 (10.0-50.0); MEAN CORPUSCULAR HEMOGLOBIN 29.9 pg (27.0-31.0); MEAN CORPUSCULAR HGB CONC 33.3 (31.8-35.4); MEAN CORPUSCULAR VOLUME 89.7 fl (81.0-99.0); MONOCYTES % (AUTO) 13.2 (0-10); NEUTROPHILS # (AUTO) 4.2 K/ul (2.0-6.9); NEUTROPHILS % (AUTO) 56.3 % (42.2-75.2); PLATELET COUNT 144 10^3/uL (140-440); RDW COEFFICIENT OF VARIATION 13.9 % (11.6-14.8); RED BLOOD COUNT 4.35 10^6/ul (4.20-5.40); WHITE BLOOD COUNT 7.43 K/ul (4.6-10.2)
[2021-12-20] MEDS: D5%-NS-KCL 20 MEQ/L IV SOL 1,000 ML IV SCH ×2 (06:01→17:40)
[2021-12-20 06:03] LABS: ALANINE AMINOTRANSFERASE 19.2 U/L (0-35); ALBUMIN 3.75 g/dL (3.5-5.0); ASPARTATE AMINO TRANSFERASE 26.6 U/L (14-36); BILIRUBIN,TOTAL 0.56 mg/dL (0.2-1.3); BLOOD UREA NITROGEN 13.9 mg/dL (7-17); CALCIUM 9.36 mg/dL (8.4-10.2); CARBON DIOXIDE 22.8 mmol/L (22-30.0); CHLORIDE 104.7 mmol/L (98-107); CREATININE 1.07 mg/dL (0.60-1.30); GLUCOSE 187.9 mg/dL (74-106); POTASSIUM 4.39 mmol/L (3.5-5.1); SODIUM 136.4 mmol/L (134.5-145); TOTAL PROTEIN 7.24 g/dL (6.3-8.2)
--- NOTE | 2021-12-20 10:28 | RS.OTINEVL ---
Subjective - Patient information Date of Evaluation: 12/20/21 Date of Arrival on Unit: 12/19/21 Admitted From:: Home Diagnosis: Covid, SOA, Afib PRECAUTIONS: Recent falls Usual Living Arrangement: assistive Living Living Arrangement Comments: Came from [facility], Living alone, Home Environment: Apartment Medical History: Hypertension, CVA/TIA, Diabetes, Arthritis Medical History Comments:: subdural hematoma, confusion, encephalopathy, hyponatremia, headache, LATEX ALLERGY?: No Surgical History: Cholecystectomy, CABG Surgical History Comments:: appey Medications: medicine for depression for a few days. Subjective Information/ Patient Comments:: "I am walking better now." - Level of function Prior to this admission, the patient could do the following:: Independent Selfcare, Independent ADL's, Independent Ambulation, Partially Dependent Ambulation, Perform Advertising Sales Manager/Cooking, Drive, Participated in Social Activities Outside home, Volunteer/Work Current Level of Function: Partially Dependent Current Equipment Used at Home: Wheeled Walker Pain Assessment - Pain Pain Score: 0 Interventions - Objective Patient Orientation: Person, Place, Situation Current Interventions: IV's, Oxygen, Telemetry Observation: Pt appears weak. Pt able to get out of bed CGA. Pt sit to stand min A. Pt CGA for walking with RW. Pt has decreased RUE AROM with some pain with shoulder flexion. Interventions - ROM Right Upper Extremity AROM: Slight limitation Left Upper Extremity AROM: WFL's - Strength Right Upper Extremity Strength: Mild Weakness Left Upper Extremity Strength: Mild Weakness - Sensation Right Upper Extremity Sensation: Intact/Normal Left Upper Extremity Sensation: Intact/Normal Balance - Sitting Balance Static Sitting Balance: Fair Dynamic Sitting Balance: Fair - Standing Balance Static Standing Balance: Poor Dynamic Standing Balance: Poor ADL Skills - Self Feeding Self Feeding: Independent - Grooming Grooming: Min Assist - Dressing Dressing UE: Independent Dressing LE: Min Assist - Toilet Management Toilet Hygiene: CGA Toilet Clothing Management: CGA Functional Mobility - Bed Mobility Rolling R/L: Independent Scooting: Independent Supine to Sit: CGA Sit to Supine: CGA - Transfers Sit to Stand: Min Assist, 1 person assist Stand to Sit: CGA Stand Pivot Transfers: CGA - Safety Awareness Safety Awareness: Fair CLIFF INDEX SCORE: . Additional Treatment Performed - Time with patient Length of Evaluation: 18 Total treatment time: 18 Activities Do you enjoy playing games?: Yes Would you be interested in leaving your room for activities?: Yes Would you enjoy group activities?: Yes Do you have difficulty with your vision?: No What types of things do you enjoy doing? Any Hobbies?: Puzzles Patient Interests:: Reading Books/Magazines, Watching Television, Puzzles/Games Patient Education Patient Education: Home Safety, Education of Plan of Care Teaching Recipient: Patient Teaching Methods: Discussion, Demonstration Assessment Problem List:: Decreased level of function, Requires training/education, Weakness Rehab Potential: Good Further Therapy Indicated?: Yes Evaluation Complexity: HISTORY: Medium, EXAM OF BODY SYSTEMS: Medium, CLINICAL DECISION MAKING: Medium Patient's Goal(s): To get stronger and return to home. Short Term Goals - Goals GOAL 1: Pt to increase I of toileting to supervision. Goal to be met by: 12/22/21 GOAL 2: Pt to increase dyn. std. balance to Fair-. Goal to be met by: 12/22/21 GOAL 3: Pt to increase B upper extremity strength to 4/5. Goal to be met by: 12/22/21 Linseed Oil Press Tender Goals GOAL 1: Pt to be Independent with ADLS. Goal to be met by: 12/26/21 GOAL 2: Pt AROM of RUE to increase to WFL. Goal to be met by: 12/26/21 GOAL 3: Pt to increase dyn. std. bal to Fair+. Goal to be met by: 12/26/21 Plan Plan of Care: Therapeutic EX, Neuromuscular Re-Educ, Therapeutic Activity, Self- Care/Home Management Modalities: Ultrasound, Electrical Stimulation Frequency of Treatment: 1-2 X day, as tolerated Duration of Treatment: 1 Week Anticipated Discharge Destination: Home Treatment Diagnosis (ICD 10 Codes): Weakness M62.81, U07.1 Covid Chg, Z74.1 Need for assistance with personal care Has the Physician been added for Co-signature?: Yes
--- NOTE | 2021-12-20 13:25 | RS.PTINEVL ---
Subjective - Patient information Date of Evaluation: 12/20/21 Date of Arrival on Unit: 12/19/21 Admitted From:: Home Diagnosis: COVID +, recent falls Usual Living Arrangement: assistive Living Home Environment: Apartment, Level/No stairs Medical History: Diabetes, Arthritis Medical History Comments:: pt is SUN'AQ, h/o subdural hematoma Medications: see chart Subjective Information/ Patient Comments:: pt states that she has been sitting up in the chair most of the morning but is wants to try to walk. She states that she fell at [place], but did not hurt herself. - Level of function Prior to this admission, the patient could do the following:: Independent Selfcare, Independent ADL's, Independent Ambulation Abilities prior to this admission: pt amb with rwx, had experienced 2 recent falls Current Level of Function: Partially Dependent Current Equipment Used at Home: Wheeled Walker Interventions - Objective Patient Orientation: Person, Place, Situation Current Interventions: IV's, Oxygen, Telemetry Observation: pt with rounded shlds, forward head, increased thoracic kyphosis. Range of Motion - ROM Right Upper Extremity AROM: WFL's Left Upper Extremity AROM: WFL's Right Lower Extremity AROM: WFL's Left Lower Extremity AROM: WFL's Muscle Strength - Muscle Strength Right Upper Extremity Strength: Mild Weakness (grossly 4/5) Left Upper Extremity Strength: Mild Weakness (grossly 4/5) Right Lower Extremity Strength: Mild Weakness (hip flex 4/5, knee flex 4-/5, ext 4/5, ankle DF/PF 4/5) Left Lower Extremity Strength: Mild Weakness (hip flex 4/5, knee flex/ext 4/5, ankle DF/PF 4/5) Sensation - Sensation Right Upper Extremity Sensation: Intact/Normal Left Upper Extremity Sensation: Intact/Normal Right Lower Extremity Sensation: Intact/Normal Left Lower Extremity Sensation: Intact/Normal Palpation Palpation Findings: None/Normal Balance - Sitting Balance and Reactions Static Sitting Balance: Fair (fair+) Dynamic Sitting Balance: Fair - Standing Balance and Reactions Static Standing Balance: Poor Dynamic Standing Balance: Poor Standing Equilibrium Reactions: Delayed Left, Delayed Right Standing Protective Reactions: Delayed Left, Delayed Right Functional Mobility - Bed Mobility Rolling R/L: CGA Supine to Sit: Supervision Sit to Supine: Supervision - Transfers Sit to Stand: CGA Stand to Sit: CGA - Safety Awareness Safety Awareness: Fair CLIFF INDEX SCORE: n/a Ambulation - Ambulation Assistive Device Used: Rolling Walker Orthotic/Prosthetic Device: No Distance: 35ft Assistance needed with Ambulation: CGA (with O2) Gait Deviations: Forward posture, Short stride, Deviates from path Ambulation Comments: pt with deviation from path at times requires verbal and tactile cues. Factors Affecting Ambulation: Decreased Balance, Breathing/O2 Saturation, Weakness, Decreased Safety, Limited Endurance Treatment time - Time with patient Length of Evaluation: 19 Total treatment time: 26 Patient Education - Education Patient Education: Activity Modification, Education of Plan of Care Teaching Recipient: Patient Teaching Methods: Discussion, Demonstration Comments: discussion regarding POC and home safety. Assessment - Assessment Problem List:: Decreased level of function, Requires training/education, Decreased safety/Risk of falls, Weakness, Cognitive status limits abilities Rehab Potential: Good Further Therapy Indicated?: Yes Candidate for Swing Bed for Therapy Services?: Feel pt may not be a candidate for swing due to level of function. Feel pt would benefit from home health PT [place] Evaluation Complexity: HISTORY: Medium, EXAM OF BODY SYSTEMS: Medium, CLINICAL PRESENTATION: Medium, CLINICAL DECISION MAKING: Medium Patient's Goal(s): be able to walk better. Short Term Goals GOAL #1: pt independent with rolling and scooting up in bed. Goal to be met by: 12/23/21 GOAL #2: Transfer sup to/from sit SBA Goal to be met by: 12/23/21 GOAL #3: Transfer sit to/from stand SB to CGA Goal to be met by: 12/23/21 GOAL #4: Improve BLE strength 4 to 4+/5 Goal to be met by: 12/23/21 GOAL #5: pt amb with rwx 50ft with CGA w O2 improved sequencing. Residential Goals GOAL #1: Transfer sup to/from sit to/from stand SBA to Independently Goal to be met by: 12/26/21 GOAL #2: Amb functional household distances with rwx SBA with no LOB Goal to be met by: 12/26/21 GOAL #3: Improve dyn stand balance to fair Goal to be met by: 12/26/21 Plan Plan of Care: Therapeutic EX, Therapeutic Activity Other:: gait training Frequency of Treatment: 1-2 X day, as tolerated Duration of Treatment: 5 days Anticipated Discharge Destination: Home Treatment Diagnosis (ICD 10 Codes): difficulty walking R 26.2. impaired balance R 26.81. COVID Z86.19. weakness M62.81 Has the Physician been added for Co-signature?: Yes
[2021-12-20] MEDS ORDERED: MIRALAX PO PRN (17:15)
[2021-12-20] MEDS ORDERED: TYLENOL PO PRN (17:15)
[2021-12-20] MEDS ORDERED: ASPIRIN CHEWABLE PO SCH (17:30)
[2021-12-20] MEDS ORDERED: ARTIFICIAL TEARS DROPS OP PRN (17:31)
[2021-12-20] MEDS: LANOXIN PO SCH (18:10)
[2021-12-20] MEDS: PROCARDIA XL PO SCH (18:10)
[2021-12-20] MEDS: LANTUS SUBCUT SCH (18:11)
[2021-12-20] MEDS: COZAAR PO SCH (18:11)
[2021-12-20] MEDS: REMERON PO SCH (20:47)
[2021-12-20] MEDS: TOPROL XL PO SCH (20:47)
[2021-12-20] MEDS: TIMOPTIC 0.5% OPTH EACHEYE SCH (20:47)
[2021-12-20] MEDS: MEVACOR PO SCH (20:47)
[2021-12-20] MEDS: TRADJENTA PO SCH (20:47)
[2021-12-20] MEDS: XALATAN EACHEYE SCH (20:48)
[2021-12-20] MEDS: COSOPT EACHEYE SCH (20:48)
[2021-12-20] MEDS: BRIMONIDINE TARTRATE 0.2% OPTH SOL EACHEYE SCH (20:48)
[2021-12-21 05:53] LABS: BASOPHILS % (AUTO) 0.5 % (0.0-3.0); EOSINOPHILS # (AUTO) 0.4 K/ul (0.0-0.7); EOSINOPHILS % (AUTO) 5.5 % (0.0-7.0); HEMOGLOBIN 11.8 g/dl (12.0-16.0); IMMATURE GRANULOCYTE # (AUTO) 0.1 (0.0-1.0); IMMATURE GRANULOCYTE % (AUTO) 0.8 % (0.0-5.0); LYMPHOCYTES # (AUTO) 2.5 K/uL (0.60-3.4); LYMPHOCYTES % (AUTO) 39.7 (10.0-50.0); MEAN CORPUSCULAR HEMOGLOBIN 29.6 pg (27.0-31.0); MEAN CORPUSCULAR HGB CONC 32.8 (31.8-35.4); MEAN CORPUSCULAR VOLUME 90.2 fl (81.0-99.0); MONOCYTES # (AUTO) 0.7 K/uL (0.4-2.0); MONOCYTES % (AUTO) 10.7 (0-10); NEUTROPHILS # (AUTO) 2.7 K/ul (2.0-6.9); NEUTROPHILS % (AUTO) 42.8 % (42.2-75.2); PLATELET COUNT 148 10^3/uL (140-440); RDW COEFFICIENT OF VARIATION 13.9 % (11.6-14.8); RED BLOOD COUNT 3.99 10^6/ul (4.20-5.40); WHITE BLOOD COUNT 6.33 K/ul (4.6-10.2)
[2021-12-21 06:02] LABS: PROTHROMBIN TIME 10.3 SEC (9.3-11.0)
[2021-12-21 06:08] LABS: ALANINE AMINOTRANSFERASE 19.3 U/L (0-35); ALBUMIN 3.43 g/dL (3.5-5.0); ALKALINE PHOSPHATASE 46.7 U/L (53-141); ASPARTATE AMINO TRANSFERASE 25.5 U/L (14-36); BILIRUBIN,TOTAL 0.43 mg/dL (0.2-1.3); BLOOD UREA NITROGEN 16.7 mg/dL (7-17); CALCIUM 9.13 mg/dL (8.4-10.2); CARBON DIOXIDE 23.6 mmol/L (22-30.0); CHLORIDE 105.7 mmol/L (98-107); CREATININE 1.08 mg/dL (0.60-1.30); GLUCOSE 192.8 mg/dL (74-106); POTASSIUM 4.57 mmol/L (3.5-5.1); SODIUM 136.1 mmol/L (134.5-145); TOTAL PROTEIN 6.71 g/dL (6.3-8.2)
[2021-12-21] MEDS ORDERED: PRILOSEC PO SCH (09:00)
[2021-12-21] MEDS ORDERED: VEKLURY 200 MG in SODIUM CHLORIDE 250 ML IV ONE (09:00)
[2021-12-21] MEDS ORDERED: LASIX TAB PO SCH (09:00)
[2021-12-21] MEDS: COSOPT EACHEYE SCH ×2 (09:44→20:17)
[2021-12-21] MEDS: TOPROL XL PO SCH ×2 (09:44→20:16)
[2021-12-21] MEDS: BRIMONIDINE TARTRATE 0.2% OPTH SOL EACHEYE SCH (09:44)
[2021-12-21] MEDS: PROCARDIA XL PO SCH (09:45)
[2021-12-21] MEDS: COZAAR PO SCH (09:45)
[2021-12-21] MEDS: LANOXIN PO SCH (09:45)
[2021-12-21] MEDS: ASPIRIN CHEWABLE PO SCH (09:45)
[2021-12-21] MEDS: HUMALOG SUBCUT SCH ×3 (09:46→17:20)
[2021-12-21] MEDS: TIMOPTIC 0.5% OPTH EACHEYE SCH (09:47)
[2021-12-21] MEDS: LANTUS SUBCUT SCH (09:48)
[2021-12-21] MEDS: WHITE PETROLATUM MINERAL OIL EACHEYE SCH ×2 (15:05→20:17)
[2021-12-21] MEDS: TRADJENTA PO SCH (20:16)
[2021-12-21] MEDS: MEVACOR PO SCH (20:17)
[2021-12-21] MEDS: XALATAN EACHEYE SCH (20:17)
[2021-12-21] MEDS: REMERON PO SCH (20:17)
[2021-12-22 05:25] LABS: BASOPHILS % (AUTO) 0.5 % (0.0-3.0); EOSINOPHILS # (AUTO) 0.5 K/ul (0.0-0.7); HEMATOCRIT 37.8 % (37.0-47.0); HEMOGLOBIN 12.6 g/dl (12.0-16.0); IMMATURE GRANULOCYTE % (AUTO) 0.5 % (0.0-5.0); LYMPHOCYTES # (AUTO) 2.8 K/uL (0.60-3.4); LYMPHOCYTES % (AUTO) 43.3 (10.0-50.0); MEAN CORPUSCULAR HEMOGLOBIN 29.7 pg (27.0-31.0); MEAN CORPUSCULAR HGB CONC 33.3 (31.8-35.4); MEAN CORPUSCULAR VOLUME 89.2 fl (81.0-99.0); MONOCYTES # (AUTO) 0.6 K/uL (0.4-2.0); MONOCYTES % (AUTO) 9.1 (0-10); NEUTROPHILS # (AUTO) 2.6 K/ul (2.0-6.9); NEUTROPHILS % (AUTO) 39.6 % (42.2-75.2); PLATELET COUNT 155 10^3/uL (140-440); RDW COEFFICIENT OF VARIATION 13.5 % (11.6-14.8); RED BLOOD COUNT 4.24 10^6/ul (4.20-5.40); WHITE BLOOD COUNT 6.56 K/ul (4.6-10.2)
[2021-12-22 05:42] LABS: PROTHROMBIN TIME 10.3 SEC (9.3-11.0)
[2021-12-22 05:47] LABS: ALANINE AMINOTRANSFERASE 21.4 U/L (0-35); ALBUMIN 3.56 g/dL (3.5-5.0); ALKALINE PHOSPHATASE 47.9 U/L (53-141); ASPARTATE AMINO TRANSFERASE 26.2 U/L (14-36); BILIRUBIN,TOTAL 0.37 mg/dL (0.2-1.3); BLOOD UREA NITROGEN 23.7 mg/dL (7-17); CALCIUM 9.71 mg/dL (8.4-10.2); CHLORIDE 104.1 mmol/L (98-107); CREATININE 1.08 mg/dL (0.60-1.30); GLUCOSE 125.1 mg/dL (74-106); POTASSIUM 4.37 mmol/L (3.5-5.1); SODIUM 135.4 mmol/L (134.5-145); TOTAL PROTEIN 6.97 g/dL (6.3-8.2)
[2021-12-22] MEDS: COZAAR PO SCH (09:12)
[2021-12-22] MEDS: LANOXIN PO SCH (09:12)
[2021-12-22] MEDS: PROCARDIA XL PO SCH (09:12)
[2021-12-22] MEDS: TOPROL XL PO SCH ×2 (09:12→20:26)
[2021-12-22] MEDS: ASPIRIN CHEWABLE PO SCH (09:12)
[2021-12-22] MEDS: COSOPT EACHEYE SCH ×2 (09:13→20:26)
[2021-12-22] MEDS: HUMALOG SUBCUT SCH ×3 (09:13→18:25)
[2021-12-22] MEDS: VEKLURY 100 MG in SODIUM CHLORIDE 250 ML IV SCH (09:13)
[2021-12-22] MEDS: LANTUS SUBCUT SCH (09:14)
[2021-12-22] MEDS: XALATAN EACHEYE SCH (20:26)
[2021-12-22] MEDS: TRADJENTA PO SCH (20:26)
[2021-12-22] MEDS: MEVACOR PO SCH (20:26)
[2021-12-22] MEDS: REMERON PO SCH (20:26)
[2021-12-22] MEDS: WHITE PETROLATUM MINERAL OIL EACHEYE SCH (20:27)
[2021-12-23 05:13] VITALS: TEMP 97.6
[2021-12-23 05:25] LABS: BASOPHILS % (AUTO) 0.5 % (0.0-3.0); EOSINOPHILS # (AUTO) 0.4 K/ul (0.0-0.7); EOSINOPHILS % (AUTO) 5.5 % (0.0-7.0); HEMOGLOBIN 12.6 g/dl (12.0-16.0); IMMATURE GRANULOCYTE % (AUTO) 0.5 % (0.0-5.0); LYMPHOCYTES # (AUTO) 2.8 K/uL (0.60-3.4); LYMPHOCYTES % (AUTO) 42.3 (10.0-50.0); MEAN CORPUSCULAR HEMOGLOBIN 29.6 pg (27.0-31.0); MEAN CORPUSCULAR HGB CONC 33.2 (31.8-35.4); MEAN CORPUSCULAR VOLUME 89.2 fl (81.0-99.0); MONOCYTES # (AUTO) 0.6 K/uL (0.4-2.0); MONOCYTES % (AUTO) 9.6 (0-10); NEUTROPHILS # (AUTO) 2.7 K/ul (2.0-6.9); NEUTROPHILS % (AUTO) 41.6 % (42.2-75.2); PLATELET COUNT 166 10^3/uL (140-440); RDW COEFFICIENT OF VARIATION 13.1 % (11.6-14.8); RED BLOOD COUNT 4.26 10^6/ul (4.20-5.40); WHITE BLOOD COUNT 6.53 K/ul (4.6-10.2)
[2021-12-23 05:37] LABS: ALANINE AMINOTRANSFERASE 20.3 U/L (0-35); ALBUMIN 3.59 g/dL (3.5-5.0); ALKALINE PHOSPHATASE 51.6 U/L (53-141); ASPARTATE AMINO TRANSFERASE 21.3 U/L (14-36); BILIRUBIN,TOTAL 0.3 mg/dL (0.2-1.3); CALCIUM 9.53 mg/dL (8.4-10.2); CHLORIDE 100.8 mmol/L (98-107); CREATININE 1.14 mg/dL (0.60-1.30); GLUCOSE 191.7 mg/dL (74-106); POTASSIUM 4.59 mmol/L (3.5-5.1); SODIUM 131.8 mmol/L (134.5-145); TOTAL PROTEIN 7.1 g/dL (6.3-8.2)
[2021-12-23] MEDS ORDERED: LASIX TAB PO SCH (06:30)
[2021-12-23] MEDS ORDERED: PRILOSEC PO SCH (06:30)
--- NOTE | 2021-12-23 06:37 | PCM ---
Chief Complaint Chief Complaint: she tested positive for covid and she is weak History of Present Illness History of Present Illness: This is an 81 yr old lady with hx of htn, dm who presented to the ed at [facility] for weakness, frequent falls and recently was found to be covid positive wtih generalized weakness and rhinitis. The ed md felt she needed admission and in discussion with my partner Dr Calzada she was admitted for tx of covid 19. Review of Systems Constitutional: Reports Fever, Chills, Weakness and Fatigue Eyes: Reports No symptoms Ears: Reports No symptoms Nose: Reports Congestion Throat: Reports Pain Mouth: Reports No symptoms Respiratory: Reports No symptoms Cardiovascular: Reports No symptoms Gastrointestinal: Reports No symptoms Genitourinary: Reports No symptoms Neurological: Reports Weakness and Problems with walking Musculoskeletal: Reports No symptoms Skin: Reports No symptoms Immunology: Reports No symptoms Hematology: Reports No symptoms Endocrine: Reports No symptoms Psychiatric: Reports No symptoms Allergies Allergies Allergy/AdvReac Type Severity Reaction Status Date / Time No Known Allergies Allergy Verified 12/23/21 06:33 [facility] Medical History Arrhythmia Diabetes Social History Smoking and tobacco status: Never smoker Substance use type: does not use History of recent travel: No Medications Medications: Medications Generic Name Dose Route Start Last Admin Trade Name Freq PRN Reason Stop Dose Admin Acetaminophen 650 mg 12/20/21 17:15 Acetaminophen 325 Mg Tablet PO Q4-6H PRN Pain Aspirin 81 mg 12/21/21 08:30 12/22/21 09:12 Aspirin 81 Mg Tab.Chew PO 81 mg DAILYWM LAURA Administration Cholecalciferol 5,000 unit 12/25/21 09:00 Cholecalciferol (Vitamin D3) 1,000 Unit (25 Mcg) Tablet PO WEEKLY LAURA Digoxin 250 mcg 12/20/21 17:30 12/22/21 09:12 Digoxin 125 Mcg Tablet PO 250 mcg DAILY LAURA Administration Dorzolamide/Timolol 1 drop 12/20/21 21:00 12/22/21 20:26 Dorzolamide Hcl/Timolol Maleat Opth 10 Ml Yulia EACHEYE 1 drop BID LAURA Administration Furosemide 20 mg 12/23/21 06:30 12/23/21 05:54 Furosemide 20 Mg Tablet PO 20 mg EVERY OTHER DAY@0630 LAURA Administration REMDESIVIR SOLUTION 100 mg/ 270 mls @ 270 mls/hr 12/22/21 09:00 12/22/21 09:13 Sodium Chloride IV 12/25/21 10:59 270 mls/hr DAILY LAURA Administration Insulin Glargine 50 unit 12/20/21 17:30 12/22/21 09:14 Insulin Glargine,Hum.Rec.Anlog 100 Units/Ml SUBCUT 50 unit DAILY LAURA Administration Insulin Human Lispro 10 unit 12/21/21 08:30 12/22/21 18:25 Insulin Lispro 100 Unit/Ml (3 Ml) Vial SUBCUT Not Given TIDWM LAURA Latanoprost 1 drop 12/20/21 21:00 12/22/21 20:26 Latanoprost 2.5 Ml Opth Yulia EACHEYE 1 drop BEDTIME LAURA Administration Linagliptin 5 mg 12/20/21 21:00 12/22/21 20:26 Linagliptin 5 Mg Tablet PO 5 mg BEDTIME LAURA Administration Losartan Potassium 100 mg 12/22/21 09:00 12/22/21 09:12 Losartan Potassium 100 Mg Tablet PO 100 mg DAILY LAURA Administration Lovastatin 40 mg 12/20/21 21:00 12/22/21 20:26 Lovastatin 20 Mg Tablet PO 40 mg BEDTIME LAURA Administration Metoprolol Succinate 25 mg 12/20/21 21:00 12/22/21 20:26 Metoprolol Succinate 25 Mg Tab.Er.24h PO 25 mg BID LAURA Administration Mirtazapine 15 mg 12/20/21 21:00 12/22/21 20:26 Mirtazapine 15 Mg Tablet PO 15 mg BEDTIME LAURA Administration Nifedipine 30 mg 12/20/21 17:30 12/22/21 09:12 Nifedipine 30 Mg Tab.Er.24 PO 30 mg DAILY LAURA Administration Non-Formulary Medication 1 applic 12/20/21 21:00 12/22/21 20:27 White Petrolatum-Mineral Oil [Systane Nighttime] EACHEYE Not Given BEDTIME LAURA Omeprazole 20 mg 12/23/21 06:30 12/23/21 05:54 Omeprazole 20 Mg Capsule.Dr PO 20 mg EVERY OTHER DAY@0630 LAURA Administration Polyethylene Glycol 17 gm 12/20/21 17:15 Polyethylene Glycol 17 Gm Powd.Pack PO DAILY PRN Constipation Body Composition Height: 5 ft 10 in Weight: 195 lb Body Mass Index (BMI): 27.9 Vital Signs Temperature: 97.6 F Pulse Rate: 56 Respiratory Rate: 16 Blood Pressure: 120/56 O2 Sat by Pulse Oximetry: 99 Physical Examination Appearance: Reports Ill-appearing Ill-appearing: Mild Pain Distress: None Eyes: Reports MARINO, EOMI and Conjunctiva clear ENT: Reports Ears normal, Nose normal and Oropharynx normal Neck: Supple Respiratory: Reports Airway patent, Breath sounds clear and Breath sounds equal Cardiovascular: Reports RRR, Pulses normal, No rub and No murmur GI/: Reports Soft, Nontender, No masses, Bowel sounds normal and No Organomegaly Musculoskeletal: Reports Normal strength Skin: Reports Warm, Dry and Normal color Neurological: Reports Sensation intact, Motor intact, Reflexes intact, Cranial nerves intact, Alert and Oriented Psychiatric: Reports Affect appropriate and Mood appropriate Lab/Tests/Diagnostic Imaging Lab/Tests/Diagnostic Imaging: Lab Review 12/19/21 12/19/21 12/19/21 02:50 20:33 20:33 WBC 8.62 RBC 4.18 L Hgb 12.6 Hct 37.0 MCV 88.5 MCH 30.1 MCHC 34.1 RDW Coeff of Aroldo 13.6 Plt Count 158 Immature Gran % (Auto) 0.8 Neut % (Auto) 51.3 Lymph % (Auto) 30.5 [place] % (Auto) 15.3 H Eos % (Auto) 1.5 Baso % (Auto) 0.6 Neut # (Auto) 4.4 Lymph # (Auto) 2.6 [place] # (Auto) 1.3 Eos # (Auto) 0.1 Baso # (Auto) 0.1 Immature Gran # (Auto) 0.1 PT INR Sodium 134.0 L Potassium 3.90 Chloride 104.0 Carbon Dioxide 22.0 Anion Gap 11.90 BUN 16.0 Creatinine 1.20 Estimated GFR (MDRD) 43.00 BUN/Creatinine Ratio 13.33 Glucose 151.0 H Calcium 9.50 Total Bilirubin 0.50 AST 25.0 ALT 21.0 Alkaline Phosphatase 59.0 Total Protein 7.60 Albumin 3.90 Globulin 3.70 Albumin/Globulin Ratio 1.05 Urine Color Yellow Urine Clarity Clear Urine pH 6.5 Ur Specific [place] 1.015 Urine Protein 1+ H Urine Glucose (UA) Negative Urine Ketones Negative Urine Blood Negative Urine Nitrite Negative Urine Bilirubin Negative Urine Urobilinogen 0.2 Ur Leukocyte Esterase Negative 12/20/21 12/20/21 12/21/21 05:46 05:46 05:44 WBC 7.43 RBC 4.35 Hgb 13.0 Hct 39.0 MCV 89.7 MCH 29.9 MCHC 33.3 RDW Coeff of Aroldo 13.9 Plt Count 144 Immature Gran % (Auto) 0.7 Neut % (Auto) 56.3 Lymph % (Auto) 26.5 [place] % (Auto) 13.2 H Eos % (Auto) 2.6 Baso % (Auto) 0.7 Neut # (Auto) 4.2 Lymph # (Auto) 2.0 [place] # (Auto) 1.0 Eos # (Auto) 0.2 Baso # (Auto) 0.1 Immature Gran # (Auto) 0.1 PT 10.3 INR 0.99 Sodium 136.4 Potassium 4.39 Chloride 104.7 Carbon Dioxide 22.8 Anion Gap 13.29 BUN 13.9 Creatinine 1.07 Estimated GFR (MDRD) 49.00 BUN/Creatinine Ratio 12.99 Glucose 187.9 H Calcium 9.36 Total Bilirubin 0.56 AST 26.6 ALT 19.2 Alkaline Phosphatase 52.0 L Total Protein 7.24 Albumin 3.75 Globulin 3.49 Albumin/Globulin Ratio 1.07 Urine Color Urine Clarity Urine pH Ur Specific [place] Urine Protein Urine Glucose (UA) Urine Ketones Urine Blood Urine Nitrite Urine Bilirubin Urine Urobilinogen Ur Leukocyte Esterase 12/21/21 12/21/21 12/22/21 05:44 05:44 05:13 WBC 6.33 RBC 3.99 L Hgb 11.8 L Hct 36.0 L MCV 90.2 MCH 29.6 MCHC 32.8 RDW Coeff of Aroldo 13.9 Plt Count 148 Immature Gran % (Auto) 0.8 Neut % (Auto) 42.8 Lymph % (Auto) 39.7 [place] % (Auto) 10.7 H Eos % (Auto) 5.5 Baso % (Auto) 0.5 Neut # (Auto) 2.7 Lymph # (Auto) 2.5 [place] # (Auto) 0.7 Eos # (Auto) 0.4 Baso # (Auto) 0.0 Immature Gran # (Auto) 0.1 PT 10.3 INR 0.99 Sodium 136.1 Potassium 4.57 Chloride 105.7 Carbon Dioxide 23.6 Anion Gap 11.37 BUN 16.7 Creatinine 1.08 Estimated GFR (MDRD) 48.00 BUN/Creatinine Ratio 15.46 Glucose 192.8 H Calcium 9.13 Total Bilirubin 0.43 AST 25.5 ALT 19.3 Alkaline Phosphatase 46.7 L Total Protein 6.71 Albumin 3.43 L Globulin 3.28 Albumin/Globulin Ratio 1.04 Urine Color Urine Clarity Urine pH Ur Specific [place] Urine Protein Urine Glucose (UA) Urine Ketones Urine Blood Urine Nitrite Urine Bilirubin Urine Urobilinogen Ur Leukocyte Esterase 12/22/21 12/22/21 12/23/21 05:13 05:13 05:06 WBC 6.56 6.53 RBC 4.24 4.26 Hgb 12.6 12.6 Hct 37.8 38.0 MCV 89.2 89.2 MCH 29.7 29.6 MCHC 33.3 33.2 RDW Coeff of Aroldo 13.5 13.1 Plt Count 155 166 Immature Gran % (Auto) 0.5 0.5 Neut % (Auto) 39.6 L 41.6 L Lymph % (Auto) 43.3 42.3 [place] % (Auto) 9.1 9.6 Eos % (Auto) 7.0 5.5 Baso % (Auto) 0.5 0.5 Neut # (Auto) 2.6 2.7 Lymph # (Auto) 2.8 2.8 [place] # (Auto) 0.6 0.6 Eos # (Auto) 0.5 0.4 Baso # (Auto) 0.0 0.0 Immature Gran # (Auto) 0.0 0.0 PT INR Sodium 135.4 Potassium 4.37 Chloride 104.1 Carbon Dioxide 23.0 Anion Gap 12.67 BUN 23.7 H Creatinine 1.08 Estimated GFR (MDRD) 48.00 BUN/Creatinine Ratio 21.94 Glucose 125.1 H D Calcium 9.71 Total Bilirubin 0.37 AST 26.2 ALT 21.4 Alkaline Phosphatase 47.9 L Total Protein 6.97 Albumin 3.56 Globulin 3.41 Albumin/Globulin Ratio 1.04 Urine Color Urine Clarity Urine pH Ur Specific [place] Urine Protein Urine Glucose (UA) Urine Ketones Urine Blood Urine Nitrite Urine Bilirubin Urine Urobilinogen Ur Leukocyte Esterase 12/23/21 05:06 WBC RBC Hgb Hct MCV MCH MCHC RDW Coeff of Aroldo Plt Count Immature Gran % (Auto) Neut % (Auto) Lymph % (Auto) [place] % (Auto) Eos % (Auto) Baso % (Auto) Neut # (Auto) Lymph # (Auto) [place] # (Auto) Eos # (Auto) Baso # (Auto) Immature Gran # (Auto) PT INR Sodium 131.8 L Potassium 4.59 Chloride 100.8 Carbon Dioxide 23.0 Anion Gap 12.59 BUN 29.0 H Creatinine 1.14 Estimated GFR (MDRD) 46.00 BUN/Creatinine Ratio 25.43 Glucose 191.7 H D Calcium 9.53 Total Bilirubin 0.30 AST 21.3 ALT 20.3 Alkaline Phosphatase 51.6 L Total Protein 7.10 Albumin 3.59 Globulin 3.51 Albumin/Globulin Ratio 1.02 Urine Color Urine Clarity Urine pH Ur Specific [place] Urine Protein Urine Glucose (UA) Urine Ketones Urine Blood Urine Nitrite Urine Bilirubin Urine Urobilinogen Ur Leukocyte Esterase Orders Category Date Time Status ADMIT PATIENT [facility]PAT[facility] .[facility] (MONITORED BED) ADMISSION 12/20/21 21:58 Active ADMIT PATIENT INPATIENT .TO [facility] (NON-MONITORED ADMISSION 12/19/21 20:56 Active BED) EKG-(IP & OP ONLY) Routine CARDIO 12/19/21 23:40 Completed OXYGEN Routine CARDIO 12/19/21 23:44 Active ACCUCHECK (MED/SURG, SCU) [BLOOD GLUCOSE MONITORING ( CARE 12/19/21 21:00 Active MED/SURG)] 1100,1700 ACTIVITY .Up With Assistance CARE 12/19/21 20:56 Active GIVE HS SNACK 2100 CARE 12/19/21 21:00 Active INTAKE & OUTPUT Q8HR CARE 12/19/21 20:56 Active IP: INSERT SALINE LOCK ONCE CARE 12/19/21 20:56 Active Notify RT of Treatment ONCE CARE 12/19/21 23:41 Active PHARMACIST CONSULT ONCE CARE 12/20/21 01:41 Active TELEMETRY MONITORING TELE CARE 12/20/21 21:59 Active VITAL SIGNS Q8HR CARE 12/19/21 20:56 Active ADA 1800 BRENDA. DIET DIETARY 12/20/21 Breakfast Ordered HS SNACK DIETARY 12/19/21 Dinner Ordered CONSULT LECTURER IN COMPUTER SCIENCE ONCE LECTURER IN COMPUTER SCIENCE 12/20/21 01:57 Active CBC W/ AUTO DIFF DAILY@0600 LAB 12/20/21 05:46 Completed CBC W/ AUTO DIFF DAILY@0600 LAB 12/21/21 05:44 Completed CBC W/ AUTO DIFF DAILY@0600 LAB 12/22/21 05:13 Completed CBC W/ AUTO DIFF DAILY@0600 LAB 12/23/21 05:06 Completed CBC W/ AUTO DIFF Stat LAB 12/19/21 20:33 Completed CMP [COMPREHENSIVE METABOLIC PANEL] DAILY@0600 LAB 12/22/21 05:13 Completed CMP [COMPREHENSIVE METABOLIC PANEL] DAILY@0600 LAB 12/23/21 05:06 Completed CMP [COMPREHENSIVE METABOLIC PANEL] Stat LAB 12/19/21 20:33 Completed COMPREHENSIVE METABOLIC PANEL DAILY@0600 LAB 12/20/21 05:46 Completed COMPREHENSIVE METABOLIC PANEL DAILY@0600 LAB 12/21/21 05:44 Completed PT WITH INR DAILY@0600 LAB 12/21/21 05:44 Completed PT WITH INR DAILY@0600 LAB 12/22/21 05:13 Completed URINALYSIS C & S IF INDICATED Stat LAB 12/19/21 02:50 Completed Acetaminophen [Tylenol] MEDS 12/20/21 17:15 Active 650 mg PO Q4-6H PRN Aspirin [Aspirin Chewable] MEDS 12/20/21 17:30 Discontinued 81 mg PO DAILY Aspirin [Aspirin Chewable] MEDS 12/21/21 08:30 Active 81 mg PO DAILYWM Brimonidine Tartrate [Brimonidine Tartrate 0.2% Opth MEDS 12/20/21 21:00 Discontinued Yulia] 1 drop EACHEYE BID Cholecalciferol (Vitamin D3) [Vitamin D] MEDS 12/25/21 09:00 Active 5,000 unit PO WEEKLY Digoxin [Lanoxin] MEDS 12/20/21 17:30 Active 250 mcg PO DAILY Dorzolamide HCl/Timolol Maleat [Cosopt] MEDS 12/20/21 21:00 Active 1 drop EACHEYE BID Furosemide [Lasix Tab] MEDS 12/21/21 09:00 Discontinued 20 mg PO EVERY OTHER DAY Furosemide [Lasix Tab] MEDS 12/23/21 06:30 Active 20 mg PO EVERY OTHER DAY@0630 Insulin Glargine,Hum.rec.anlog [Lantus] MEDS 12/20/21 17:30 Active 50 unit SUBCUT DAILY Insulin Lispro [Humalog] MEDS 12/21/21 08:30 Active 10 unit SUBCUT TIDWM Latanoprost [Xalatan] MEDS 12/20/21 21:00 Active 1 drop EACHEYE BEDTIME Linagliptin [Tradjenta] MEDS 12/20/21 21:00 Active 5 mg PO BEDTIME Losartan Potassium [Cozaar] MEDS 12/20/21 17:30 Discontinued 100 mg PO DAILY Losartan Potassium [Cozaar] MEDS 12/22/21 09:00 Active 100 mg PO DAILY Lovastatin [Mevacor] MEDS 12/20/21 21:00 Active 40 mg PO BEDTIME Metoprolol Succinate [Toprol Xl] MEDS 12/20/21 21:00 Active 25 mg PO BID Mirtazapine [Remeron] MEDS 12/20/21 21:00 Active 15 mg PO BEDTIME Nifedipine [Procardia Xl] MEDS 12/20/21 17:30 Active 30 mg PO DAILY Nirmatrelvir/Ritonavir [Paxlovid 2X150 mg-100 mg (Eua)] MEDS 12/19/21 21:00 Discontinued 3 tab PO BID Omeprazole [Prilosec] MEDS 12/21/21 09:00 Discontinued 20 mg PO EVERY OTHER DAY Omeprazole [Prilosec] MEDS 12/23/21 06:30 Active 20 mg PO EVERY OTHER DAY@0630 Peg 400/Hypromellose/Glycerin [Artificial Tears Drops] MEDS 12/20/21 17:31 Active 1 drop OP BID PRN Polyethylene Glycol 3350 [Miralax] MEDS 12/20/21 17:15 Active 17 gm PO DAILY PRN Potassium Chloride/D5-0.9%NaCl [D5%-Ns-KCl 20 Meq/l IV MEDS 12/19/21 21:00 Discontinued Yulia] 1,000 ml IV 100 mls/hr Remdesivir Solution [Veklury] 100 mg MEDS 12/22/21 09:00 Active 0.9 % Sodium Chloride [Sodium Chloride] 250 ml IV DAILY Remdesivir Solution [Veklury] 200 mg MEDS 12/21/21 09:00 Discontinued 0.9 % Sodium Chloride [Sodium Chloride] 250 ml IV ONCE Timolol Maleate 0.5% [Timoptic 0.5% Opth] MEDS 12/20/21 21:00 Discontinued 1 drop EACHEYE BID white petrolatum-mineral oil [Systane Nighttime] MEDS 12/20/21 21:00 Active 1 applic EACHEYE BEDTIME RESUSCITATION STATUS Routine OTHERS 12/19/21 20:56 Completed RESUSCITATION STATUS Routine OTHERS 12/20/21 01:58 Ordered CXR [CHEST, 1V AP ONLY] Stat RADS 12/19/21 20:18 Completed OT CONSULTATION Routine THERAPIES 12/20/21 09:30 Completed OT CONSULTATION Routine THERAPIES 12/20/21 11:51 Completed OT EVALUATION Routine THERAPIES 12/20/21 10:09 Completed PT CONSULT Routine THERAPIES 12/20/21 10:00 Completed PT CONSULT Routine THERAPIES 12/20/21 11:29 Completed PT INPATIENT EVALUATION Routine THERAPIES 12/20/21 11:29 Completed Medications Generic Name Dose Route Start Last Admin Trade Name Freq PRN Reason Stop Dose Admin Acetaminophen 650 mg 12/20/21 17:15 Acetaminophen 325 Mg Tablet PO Q4-6H PRN Pain Aspirin 81 mg 12/21/21 08:30 12/22/21 09:12 Aspirin 81 Mg Tab.Chew PO 81 mg DAILYWM LAURA Administration Cholecalciferol 5,000 unit 12/25/21 09:00 Cholecalciferol (Vitamin D3) 1,000 Unit (25 Mcg) Tablet PO WEEKLY LAURA Digoxin 250 mcg 12/20/21 17:30 12/22/21 09:12 Digoxin 125 Mcg Tablet PO 250 mcg DAILY LAURA Administration Dorzolamide/Timolol 1 drop 12/20/21 21:00 12/22/21 20:26 Dorzolamide Hcl/Timolol Maleat Opth 10 Ml Yulia EACHEYE 1 drop BID LAURA Administration Furosemide 20 mg 12/23/21 06:30 12/23/21 05:54 Furosemide 20 Mg Tablet PO 20 mg EVERY OTHER DAY@0630 LAURA Administration REMDESIVIR SOLUTION 100 mg/ 270 mls @ 270 mls/hr 12/22/21 09:00 12/22/21 09:13 Sodium Chloride IV 12/25/21 10:59 270 mls/hr DAILY LAURA Administration Insulin Glargine 50 unit 12/20/21 17:30 12/22/21 09:14 Insulin Glargine,Hum.Rec.Anlog 100 Units/Ml SUBCUT 50 unit DAILY LAURA Administration Insulin Human Lispro 10 unit 12/21/21 08:30 12/22/21 18:25 Insulin Lispro 100 Unit/Ml (3 Ml) Vial SUBCUT Not Given TIDWM LAURA Latanoprost 1 drop 12/20/21 21:00 12/22/21 20:26 Latanoprost 2.5 Ml Opth Yulia EACHEYE 1 drop BEDTIME LAURA Administration Linagliptin 5 mg 12/20/21 21:00 12/22/21 20:26 Linagliptin 5 Mg Tablet PO 5 mg BEDTIME LAURA Administration Losartan Potassium 100 mg 12/22/21 09:00 12/22/21 09:12 Losartan Potassium 100 Mg Tablet PO 100 mg DAILY LAURA Administration Lovastatin 40 mg 12/20/21 21:00 12/22/21 20:26 Lovastatin 20 Mg Tablet PO 40 mg BEDTIME LAURA Administration Metoprolol Succinate 25 mg 12/20/21 21:00 12/22/21 20:26 Metoprolol Succinate 25 Mg Tab.Er.24h PO 25 mg BID LAURA Administration Mirtazapine 15 mg 12/20/21 21:00 12/22/21 20:26 Mirtazapine 15 Mg Tablet PO 15 mg BEDTIME LAURA Administration Nifedipine 30 mg 12/20/21 17:30 12/22/21 09:12 Nifedipine 30 Mg Tab.Er.24 PO 30 mg DAILY LAURA Administration Non-Formulary Medication 1 applic 12/20/21 21:00 12/22/21 20:27 White Petrolatum-Mineral Oil [Systane Nighttime] EACHEYE Not Given BEDTIME LAURA Omeprazole 20 mg 12/23/21 06:30 12/23/21 05:54 Omeprazole 20 Mg Capsule.Dr PO 20 mg EVERY OTHER DAY@0630 LAURA Administration Polyethylene Glycol 17 gm 12/20/21 17:15 Polyethylene Glycol 17 Gm Powd.Pack PO DAILY PRN Constipation Discontinued Medications Generic Name Dose Route Start Last Admin Trade Name Freq PRN Reason Stop Dose Admin Aspirin 81 mg 12/20/21 17:30 12/20/21 18:10 Aspirin 81 Mg Tab.Chew PO 81 mg DAILY LAURA Administration Brimonidine Tartrate 1 drop 12/20/21 21:00 12/21/21 09:44 Brimonidine Tartrate 0.2% 5 Ml Btl EACHEYE 1 drop BID LAURA Administration Furosemide 20 mg 12/21/21 09:00 12/21/21 09:48 Furosemide 20 Mg Tablet PO 20 mg EVERY OTHER DAY LAURA Administration Potassium Chloride/Dextrose/Sod Cl 1,000 mls @ 100 mls/hr 12/19/21 21:00 12/20/21 17:40 D5%-Ns-Kcl 20 Meq/L Iv Yulia IV Not Given .Q10H LAURA REMDESIVIR SOLUTION 200 mg/ 290 mls @ 145 mls/hr 12/21/21 09:00 12/21/21 09:46 Sodium Chloride IV 12/21/21 10:59 145 mls/hr ONCE ONE Administration Losartan Potassium 100 mg 12/20/21 17:30 12/21/21 09:45 Losartan Potassium 100 Mg Tablet PO 100 mg DAILY LAURA Administration Nirmatrelvir/Ritonavir 3 tab 12/19/21 21:00 12/19/21 23:03 Nirmatrelvir/Ritonavir 2x150 Mg-100 Mg (Eua) PO Not Given BID LAURA Omeprazole 20 mg 12/21/21 09:00 12/21/21 09:48 Omeprazole 20 Mg Capsule.Dr PO 20 mg EVERY OTHER DAY LAURA Administration Timolol Maleate 1 drop 12/20/21 21:00 12/21/21 09:47 Timolol Maleate 5 Ml Opth Yulia EACHEYE 1 drop BID LAURA Administration Assessment (1) Weakness of both lower extremities: Status: Acute Code(s): R29.898 - Other symptoms and signs involving the musculoskeletal system SNOMED Code(s): 3540207 (2) COVID-19 virus infection: Status: Acute Code(s): U07.1 - COVID-19 SNOMED Code(s): 845788325 (3) Encephalopathy: Status: Acute Code(s): G93.40 - Encephalopathy, unspecified SNOMED Code(s): 46508754 (4) Generalized weakness: Status: Acute Code(s): R53.1 - Weakness SNOMED Code(s): 13274915 (5) At high risk for falls: Status: Acute Code(s): Z91.81 - History of falling SNOMED Code(s): 247631575062513722 Plan Plan: will discuss with pharmacy inpatient tx of covid 19 infection, will ask pt to evaluate, monitor fsbs --see orders
--- NOTE | 2021-12-23 06:39 | PCM.PROG ---
Date Seen by Provider: 12/21/21 Time Seen by Provider: 17:00 Subjective: no nursing staff concerns--appetite is fair--seen by therapy Objective: Vitals: T=97.6 F, P=56, R=16, CV=199/56, SPO2=99 HEENT: [perrls] Neck: [supple] Lungs: [clear] CVS: [rrr] Abdomen: [soft nt] Extremities: [no deformity] Neurological: [intact] Skin: [] Lab/Tests/Diagnostic Imaging: [reviews] (1) Weakness of both lower extremities: Status: Acute Code(s): R29.898 - Other symptoms and signs involving the musculoskeletal system SNOMED Code(s): 2606629 (2) COVID-19 virus infection: Status: Acute Code(s): U07.1 - COVID-19 SNOMED Code(s): 993426139 (3) Encephalopathy: Status: Acute Code(s): G93.40 - Encephalopathy, unspecified SNOMED Code(s): 41584239 (4) Generalized weakness: Status: Acute Code(s): R53.1 - Weakness SNOMED Code(s): 65311363 (5) At high risk for falls: Status: Acute Code(s): Z91.81 - History of falling SNOMED Code(s): 165145080071077643 Plan: labs are reviewed, will initiatte iv therapy for covid 19 and continue physical therapy, monitor fsbs
--- NOTE | 2021-12-23 06:42 | PCM.PROG ---
Date Seen by Provider: 12/22/21 Time Seen by Provider: 17:00 Subjective: no nursing staff concerns--progressing with therapy Objective: Vitals: T=97.6 F, P=56, R=16, SF=356/56, SPO2=99 HEENT: [] Neck: [supple] Lungs: [clear] CVS: [rrr] Abdomen: []soft nt Extremities: [] Neurological: intactr[] Skin: [] Lab/Tests/Diagnostic Imaging: reviewed[] (1) Weakness of both lower extremities: Status: Acute Code(s): R29.898 - Other symptoms and signs involving the musculoskeletal system SNOMED Code(s): 8443453 (2) COVID-19 virus infection: Status: Acute Code(s): U07.1 - COVID-19 SNOMED Code(s): 922935388 (3) Encephalopathy: Status: Acute Code(s): G93.40 - Encephalopathy, unspecified SNOMED Code(s): 20809599 (4) Generalized weakness: Status: Acute Code(s): R53.1 - Weakness SNOMED Code(s): 49673437 (5) At high risk for falls: Status: Acute Code(s): Z91.81 - History of falling SNOMED Code(s): [id number] Assessment: labs noted Plan: anticipate back to assisted living if ok with case management and P.T.--monitoring fsbs--see orders
[2021-12-23] MEDS: TOPROL XL PO SCH (09:30)
[2021-12-23] MEDS: ASPIRIN CHEWABLE PO SCH (09:30)
[2021-12-23] MEDS: PROCARDIA XL PO SCH (09:34)
[2021-12-23] MEDS: COSOPT EACHEYE SCH (09:34)
[2021-12-23] MEDS: VEKLURY 100 MG in SODIUM CHLORIDE 250 ML IV SCH (09:34)
[2021-12-23] MEDS: LANOXIN PO SCH (09:35)
[2021-12-23] MEDS: HUMALOG SUBCUT SCH ×3 (09:35→17:31)
[2021-12-23] MEDS: COZAAR PO SCH (09:35)
[2021-12-23] MEDS: LANTUS SUBCUT SCH (09:36)
[2021-12-23 14:37] VITALS: BP 115/80
[2021-12-25] MEDS ORDERED: VITAMIN D PO SCH (09:00)
--- NOTE | 2021-12-25 15:34 | PCM.DC ---
Final Diagnosis: covid 19, global weaknes, frequent falls and increased risk of falling, dm type 2 Physical Exam Appearance: Well-appearing Ill-appearing: None Pain Distress: None Eyes: MARINO, EOMI and Conjunctiva clear ENT: Ears normal, Nose normal and Oropharynx normal Neck: Supple Respiratory: Airway patent, Breath sounds clear and Breath sounds equal Cardiovascular: RRR, Pulses normal, No rub and No murmur GI/: Soft, Nontender, No masses, Bowel sounds normal and No Organomegaly Musculoskeletal: Normal strength, ROM intact, No edema and No calf tenderness Skin: Warm, Dry and Normal color Neurological: Sensation intact, Motor intact, Reflexes intact, Cranial nerves intact, Alert and Oriented Psychiatric: Affect appropriate, Mood appropriate and Anxious (1) Weakness of both lower extremities: Status: Acute Code(s): R29.898 - Other symptoms and signs involving the musculoskeletal system SNOMED Code(s): 1797343 (2) COVID-19 virus infection: Status: Acute Code(s): U07.1 - COVID-19 SNOMED Code(s): 318499994 (3) Encephalopathy: Status: Acute Code(s): G93.40 - Encephalopathy, unspecified SNOMED Code(s): 99125802 (4) Generalized weakness: Status: Acute Code(s): R53.1 - Weakness SNOMED Code(s): 39398542 (5) At high risk for falls: Status: Acute Code(s): Z91.81 - History of falling SNOMED Code(s): 376336998525382753 Reason for Hospitalization: global weaknes, covid positive, frequent falls and increased risk of falling Prognosis/Condition at Discharge: stable Medications at Discharge: Ambulatory Orders Medication Instructions Recorded aspirin 81 mg chewable tablet 81 mg PO DAILY 02/18/18 cholecalciferol (vitamin D3) 25 5,000 unit PO WEEKLY 02/18/18 mcg (1,000 unit) tablet (Vitamin D3) digoxin 250 mcg (0.25 mg) tablet 250 mcg PO DAILY 02/18/18 furosemide 20 mg tablet (Lasix) 20 mg PO EVERY OTHER DAY 02/18/18 linagliptin 5 mg tablet (Tradjenta) 5 mg PO BEDTIME 02/18/18 lovastatin 40 mg tablet,extended 40 mg PO BEDTIME 02/18/18 release 24 hr (Altoprev) metoprolol succinate 25 mg 25 mg PO BID 02/18/18 tablet,extended release 24 hr omeprazole 20 mg capsule,delayed 20 mg PO EVERY OTHER DAY 02/18/18 release latanoprost (PF) 0.005 % eye drops 1 drp BOTHEYES BEDTIME 02/25/18 mirtazapine 15 mg tablet 15 mg PO BEDTIME 02/25/18 losartan 100 mg tablet 100 mg PO DAILY ##30 02/28/18 acetaminophen 325 mg tablet 650 mg PO Q4-6H PRN PAIN/FEVER 06/24/18 insulin glargine 100 unit/mL (3 50 unit SQ DAILY 06/24/18 mL) subcutaneous pen (Basaglar KwikPen U-100 Insulin) polyethylene glycol 3350 17 gram 17 g PO DAILY PRN Constipation 06/24/18 oral powder packet (Miralax) insulin aspart U-100 100 unit/mL 10 unit SQ TID 09/04/18 subcutaneous cartridge (Novolog PenFill U-100 Insulin aspart) loperamide 2 mg capsule 2 mg PO Q6HR PRN Diarrhea 09/04/18 loratadine 10 mg tablet 10 mg PO DAILY PRN Allergy Symptoms 09/04/18 polyvinyl alcohol 1.4 % eye drops 15 ml BOTHEYES BID PRN Dry Eye(S) 09/04/18 (Artificial Tears (polyvinyl alcohol)) nifedipine 30 mg tablet,extended 30 mg PO DAILY #30 tabs 04/15/19 release 24 hr (Procardia XL) white petrolatum-mineral oil 94 1 applic BOTHEYES BEDTIME 04/15/19 %-3 % eye ointment (Systane Nighttime) dorzolamide 22.3 mg-timolol 6.8 1 drp BOTHEYES BID 12/19/ mg/mL eye drops Lab/Diagnostics: her cbc, cmp remained stable during hospitalization Education Provided to Patient and Family: quarantine, monitor for falls, and monitor fsbs Follow-ups: one week [place] [facility] Discharge Disposition: Assisted Living Facility Hospital Course: she did well [place] iv Remdesivir tx [facility] resp compromise, hypoxia --she progressed [facility] physical therapy and her strength mproved and her fsbs remained stable Plan: she will resume meds and follow up with undersigned next week.
== END 2021-12-23 17:20 | DRG 178 ==
LOC: ED 20:08 → SCU 22:02
PROVIDERS: ADMIT Family Medicine; ATTEND Family Medicine
DX: E11.9 Type 2 diabetes mellitus without complications; Z79.899 Other long term (current) drug therapy; R63.0 Anorexia; R29.898 Other symptoms and signs involving the musculoskeletal system; R53.1 Weakness; Z91.81 History of falling; G93.40 Encephalopathy, unspecified; R26.2 Difficulty in walking, not elsewhere classified; U07.1 COVID-19; Z51.81 Encounter for therapeutic drug level monitoring

== ENCOUNTER 2022-05-10 07:28 | Inpatient (IN) ==
[2022-05-10] MEDS ORDERED: SODIUM CHLORIDE 1,000 ML IV STA (07:45)
[2022-05-10] MEDS ORDERED: BOOSTRIX IM ONE (07:45)
--- NOTE | 2022-05-10 07:51 | ED.PDOC ---
General ED Provider: Dr. NUVIA GARY MD Chief Complaint: Fall Stated Complaint: mild positional ache pain of the left arm today after trip and fall from her walker, +abrasion mid left forearm, no active bleeding, no loc, assisted living pt, hx dm and confusion and atrial fib Time Seen by Provider: 05/10/22 07:32 Mode of Arrival: Walk-In Information Source: Patient Primary Care Provider: CECILIO DASILVA Nursing and Triage Documentation Reviewed and Agree: Yes Does patient meet sepsis criteria?: No System Inflammatory Response Syndrome: Not Applicable Sepsis Protocol: For patient's 13 years and over: Temp is 96.8 and below OR 101 and greater Pulse >90 BPM Resp >20/minute Acutely Altered Mental Status Are patient's symptoms suggestive of a new infection, such as: -Pneumonia -Skin, Soft Tissue -Endocarditis -UTI -Bone, Joint Infection -Implantable Device -Acute Abdominal Infection -Wound Infection -Meningitis -Blood Stream Catheter Infection -Unknown Review of Systems Review Of Systems Constitutional: Denies Fever Eyes: Denies Vision change Ears, Nose, Mouth, Throat: Denies Epistaxis Respiratory: Denies Cough, Short of air, Stridor or Wheezing Cardiac: Denies Chest pain GI: Denies Abdominal pain or Vomiting : Denies Frequency Musculoskeletal: Reports Joint pain; Denies Back pain or Neck pain Skin: Denies Rash Neurological: Denies Headache All Other Systems: Other [facility] Medical History Arrhythmia Diabetes Social History Smoking and tobacco status: Never smoker Substance use type: does not use History of recent travel: No Female Reproductive History Menstrual Hx Hysterectomy: No Hx Tubal Ligation: No Physical Exam Physical Exam Appearance: Reports Obese Ill-appearing: None Pain Distress: Mild Eyes: Reports MARINO, EOMI and Conjunctiva clear ENT: Reports Oropharynx normal Neck: Supple Respiratory: Reports Airway patent, Breath sounds clear and Breath sounds equal Cardiovascular: Reports RRR GI/: Reports Soft and Nontender Musculoskeletal: Reports Other (tender left elbow and shoulder, rom limited by pain, sen and pulses intact) Skin: Reports Warm and Other (abrasion left forearm about 2cm) Neurological: Reports Alert Psychiatric: Reports Affect appropriate Interpretation Radiology Interpretation Radiology Interpretation By: Radiologist Xray Comments: intact shunt, +sinusitis, cxr nap Radiology Interpretation By: Radiologist Exam Interpreted: Other Xray Comments: nondisplaced fx of distal left humerus EKG Interpretation Time of EKG #1: 10:11 Interpretation: atrial fib 67 lvh similar to 11/2021 Critical Care Note Critical Care Note Total Critical Care Time (mins): 0 Course Course Hematology/Chemistry: 05/10/22 07:55 05/10/22 07:55 Orders, Labs, Meds: Lab Review 05/10/22 05/10/22 05/10/22 07:55 07:55 07:55 WBC 7.32 RBC 4.29 Hgb 13.0 Hct 39.3 MCV 91.6 MCH 30.3 MCHC 33.1 RDW Coeff of Aroldo 13.6 Plt Count 168 Immature Gran % (Auto) 1.2 Neut % (Auto) 54.5 Lymph % (Auto) 28.4 [place] % (Auto) 9.2 Eos % (Auto) 5.9 Baso % (Auto) 0.8 Neut # (Auto) 4.0 Lymph # (Auto) 2.1 [place] # (Auto) 0.7 Eos # (Auto) 0.4 Baso # (Auto) 0.1 Immature Gran # (Auto) 0.1 Sodium 137.7 Potassium 4.07 Chloride 106.8 Carbon Dioxide 22.9 Anion Gap 12.07 BUN 19.3 H Creatinine 1.10 Estimated GFR (MDRD) 47.00 BUN/Creatinine Ratio 17.54 Glucose 249.3 H Lactic Acid 1.90 Calcium 9.71 Total Bilirubin 0.52 AST 27.1 ALT 24.0 Alkaline Phosphatase 67.0 Troponin I < 0.012 Total Protein 7.64 Albumin 4.10 Globulin 3.54 Albumin/Globulin Ratio 1.15 Urine Color Urine Clarity Urine pH Ur Specific Stuart Urine Protein Urine Glucose (UA) Urine Ketones Urine Blood Urine Nitrite Urine Bilirubin Urine Urobilinogen Ur Leukocyte Esterase Urine Microscopic WBC Ur Squamous Epith Cells Urine Bacteria Digoxin Influ A Molecular Assay Influ B Molecular Assay 05/10/22 05/10/22 05/10/22 07:55 08:58 09:15 WBC RBC Hgb Hct MCV MCH MCHC RDW Coeff of Aroldo Plt Count Immature Gran % (Auto) Neut % (Auto) Lymph % (Auto) [place] % (Auto) Eos % (Auto) Baso % (Auto) Neut # (Auto) Lymph # (Auto) [place] # (Auto) Eos # (Auto) Baso # (Auto) Immature Gran # (Auto) Sodium Potassium Chloride Carbon Dioxide Anion Gap BUN Creatinine Estimated GFR (MDRD) BUN/Creatinine Ratio Glucose Lactic Acid Calcium Total Bilirubin AST ALT Alkaline Phosphatase Troponin I Total Protein Albumin Globulin Albumin/Globulin Ratio Urine Color Yellow Urine Clarity Clear Urine pH 6.0 Ur Specific Stuart 1.015 Urine Protein Trace H Urine Glucose (UA) 1+ H Urine Ketones Negative Urine Blood Negative Urine Nitrite Negative Urine Bilirubin Negative Urine Urobilinogen 0.2 Ur Leukocyte Esterase 1+ H Urine Microscopic WBC 20-30 Ur Squamous Epith Cells 10-20 Urine Bacteria 1+ Digoxin 0.69 L Influ A Molecular Assay Negative by naat Influ B Molecular Assay Negative by naat Orders Category Date Time Status EKG-(ED ONLY) Stat CARDIO 05/10/22 07:45 Completed TREATMENT ORDER:NURSING ONCE CARE 05/10/22 09:05 Active CBC W/ AUTO DIFF Stat LAB 05/10/22 07:55 Completed CMP [COMPREHENSIVE METABOLIC PANEL] Stat LAB 05/10/22 07:55 Completed DIGOXIN Stat LAB 05/10/22 07:55 Completed LACTIC ACID Stat LAB 05/10/22 07:55 Completed MOLECULAR FLU A & B [FLU A/B MOLECULAR] Stat LAB 05/10/22 08:58 Completed SARS COV-2 RNA RAPID RILEY Stat LAB 05/10/22 Ordered TROPONIN I Stat LAB 05/10/22 07:55 Completed URINALYSIS C & S IF INDICATED Stat LAB 05/10/22 09:15 Completed URINE CULTURE Stat LAB 05/10/22 09:15 Received Acetaminophen [Tylenol] MEDS 05/10/22 07:52 Discontinued 650 mg PO ONCE ONE Diphth,Pertuss(Acell),Tet Vac [Boostrix] MEDS 05/10/22 07:45 Discontinued 0.5 ml IM .ONCE ONE Sodium Chloride 0.9% [Sodium Chloride] 1,000 ml MEDS 05/10/22 07:45 Discontinued IV BOLUS CHEST, 1V AP ONLY Stat RADS 05/10/22 07:[address] HEAD W/O CONTRAST Stat RADS 05/10/22 07:45 Completed FOREARM, LEFT 2 VIEWS Stat RADS 05/10/22 07:45 Completed PELVIS & TAVIA HIPS Stat RADS 05/10/22 07:45 Completed SHOULDER, LEFT MIN 2V Stat RADS 05/10/22 07:45 Completed Medications Discontinued Medications Generic Name Dose Route Start Last Admin Trade Name Marianne PRN Reason Stop Dose Admin Acetaminophen 650 mg 05/10/22 07:52 05/10/22 08:35 Acetaminophen 325 Mg Tablet PO 05/10/22 07:53 650 mg ONCE ONE Administration Diphtheria/Pertussis/Tetanus Vacc 0.5 ml 05/10/22 07:45 05/10/22 08:35 Diphth,Pertuss(Acell),Tet Vac 0.5 Ml Disp.Syrin IM 05/10/22 07:46 0.5 ml .ONCE ONE Administration Sodium Chloride 1,000 mls @ 1,000 mls/hr 05/10/22 07:45 05/10/22 09:00 Sodium Chloride IV 05/10/22 08:44 1,000 mls/hr BOLUS STA Administration Vital Signs: Temp Pulse Resp BP Pulse Ox 05/10/22 07:30 97.9 F 72 18 149/82 H 97 Discharge Plan Discharge Patient Disposition: PLACED OBSERVATION Discharge Problem: Closed fracture of left humerus, Sinusitis Prescriptions: No Action digoxin 250 MCG tablet 250 mcg PO DAILY omeprazole 20 MG capsule,delayed release(DR/EC) 20 mg PO EVERY OTHER DAY aspirin 81 MG tablet,chewable 81 mg PO DAILY furosemide [Lasix] 20 MG tablet 20 mg PO EVERY OTHER DAY metoprolol succinate 25 MG tablet extended release 24 hr 25 mg PO BID Altoprev 40 MG tablet extended release 24 hr 40 mg PO BEDTIME cholecalciferol (vitamin D3) [Vitamin D3] 1,000 UNIT tablet 5,000 unit PO DAILY Tradjenta 5 MG tablet 5 mg PO BEDTIME mirtazapine 15 MG tablet 15 mg PO BEDTIME latanoprost (PF) 7.5 ML drops 1 drp BOTHEYES BEDTIME losartan 100 MG tablet 100 mg PO DAILY Qty: 30 0RF Rx Instructions: TAKE ONE TABLET BY MOUTH DAILY THIS IS A NEW DOSE (INCREASED FROM 25 MG PO DAILY) loperamide 2 MG capsule 2 mg PO Q6HR PRN (Reason: Diarrhea) polyvinyl alcohol [Artificial Tears (polyvin alc)] 15 ML drops 15 ml BOTHEYES BID PRN (Reason: Dry Eye(S)) loratadine 10 MG tablet 10 mg PO DAILY PRN (Reason: Allergy Symptoms) insulin aspart U-100 [Novolog PenFill U-100 Insulin] 100 UNIT/ML cartridge 10 unit SQ TID Systane Nighttime 94-3 % Ointment 1 applic BOTHEYES BEDTIME nifedipine [Procardia XL] 30 mg tablet extended release 24hr 30 mg PO DAILY Qty: 30 0RF timolol 0.25 % Drops 1 drp BOTHEYES BID acetaminophen 325 MG tablet 650 mg PO Q4-6H PRN (Reason: PAIN/FEVER) polyethylene glycol 3350 [Miralax] 17 GM powder in packet 17 g PO DAILY PRN (Reason: Constipation) insulin glargine [Basaglar KwikPen U-100 Insulin] 100 UNIT/ML insulin pen 50 unit SQ DAILY Did you review [place] COUNTER STITCHER?: No ED Provider: NUVIA GARY Condition: Stable Physician Progress Note: []admit to obs d/w Dr Dasilva
[2022-05-10] MEDS ORDERED: TYLENOL PO ONE (07:52)
[2022-05-10 08:01] LABS: BASOPHILS # (AUTO) 0.1 K/uL (0-0.2); BASOPHILS % (AUTO) 0.8 % (0.0-3.0); EOSINOPHILS # (AUTO) 0.4 K/ul (0.0-0.7); EOSINOPHILS % (AUTO) 5.9 % (0.0-7.0); HEMATOCRIT 39.3 % (37.0-47.0); IMMATURE GRANULOCYTE # (AUTO) 0.1 (0.0-1.0); IMMATURE GRANULOCYTE % (AUTO) 1.2 % (0.0-5.0); LYMPHOCYTES # (AUTO) 2.1 K/uL (0.60-3.4); LYMPHOCYTES % (AUTO) 28.4 (10.0-50.0); MEAN CORPUSCULAR HEMOGLOBIN 30.3 pg (27.0-31.0); MEAN CORPUSCULAR HGB CONC 33.1 (31.8-35.4); MEAN CORPUSCULAR VOLUME 91.6 fl (81.0-99.0); MONOCYTES # (AUTO) 0.7 K/uL (0.4-2.0); MONOCYTES % (AUTO) 9.2 (0-10); NEUTROPHILS % (AUTO) 54.5 % (42.2-75.2); PLATELET COUNT 168 10^3/uL (140-440); RDW COEFFICIENT OF VARIATION 13.6 % (11.6-14.8); RED BLOOD COUNT 4.29 10^6/ul (4.20-5.40); WHITE BLOOD COUNT 7.32 K/ul (4.6-10.2)
[2022-05-10 08:16] LABS: ASPARTATE AMINO TRANSFERASE 27.1 U/L (14-36); BILIRUBIN,TOTAL 0.52 mg/dL (0.2-1.3); BLOOD UREA NITROGEN 19.3 mg/dL (7-17); CALCIUM 9.71 mg/dL (8.4-10.2); CARBON DIOXIDE 22.9 mmol/L (22-30.0); CHLORIDE 106.8 mmol/L (98-107); GLUCOSE 249.3 mg/dL (74-106); POTASSIUM 4.07 mmol/L (3.5-5.1); SODIUM 137.7 mmol/L (134.5-145); TOTAL PROTEIN 7.64 g/dL (6.3-8.2)
[2022-05-10 08:33] LABS: TROPONIN I < 0.012 ng/ml (0.0000-0.120)
--- NOTE | 2022-05-10 08:54 | DI ---
EXAM: Single view of the chest HISTORY: Weakness. COMPARISON: Chest x-ray 12/19/[address] chest 11/06/2018 FINDINGS: Cardiomediastinal silhouette is unchanged with sternotomy wires and atrial appendage closur e device. There is tubing overlying the right chest. There is no pneumothorax or effusion. There i s no consolidation, nodule or mass. There is degenerative disease of the spine and shoulders. IMPRESSION: No acute cardiopulmonary process
--- NOTE | 2022-05-10 08:57 | CT ---
EXAM: CT head without contrast HISTORY: Fall with history of shunt COMPARISON: CT head 05/07/2021 and multiple priors TECHNIQUE: Serial axial images of the brain were obtained from the skull base to the vertex without IV contrast. FINDINGS: The ventricles, cisterns and sulci are stable. Right frontal approach ventriculostomy tub e is unchanged. Tubing appears intact within the subcutaneous soft tissues on the right. The warren-w rhett matter junction is maintained. There is scattered low attenuation in the periventricular white matter.No midline shift or mass is identified. There is no abnormal intra or extra-axial fluid colle ction. The paranasal sinuses demonstrate complete opacification of the right maxillary sinus with mu cosal thickening in the ethmoid air cells. The mastoid air cells are clear. The osseous calvarium i s intact. IMPRESSION: 1. Shunt tubing is intact. 2. 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 3. Acute right maxillary sinusitis. All CT scans are performed using dose optimization techniques as appropriate to the performed exam an d include at least one of the following: Automated exposure control, adjustment of the mA and/or kV according t o size, and the use of iterative reconstruction technique.
--- NOTE | 2022-05-10 09:02 | DI ---
EXAM: Single view of the pelvis and two views of both hips HISTORY: Fall. COMPARISON: None FINDINGS: The pelvic ring is intact. There is degenerative disease of the lumbosacral spine. There is bilateral mild narrowing and osteophyte formation of the hip joint spaces. There is no displaced fracture or dislocation of the hips. The soft tissues are unremarkable. IMPRESSION: Minimal degenerative change of the hips with no displaced fracture
--- NOTE | 2022-05-10 09:02 | DI ---
EXAM: Two views of the left forearm HISTORY: Fall. COMPARISON: None FINDINGS: There is no lytic or blastic lesion. There is degenerative change and mild osteophyte form ation of the elbow and wrist. There is no displaced fracture or dislocation in the forearm. There i s a lucent probable fracture line in the distal left humerus. IMPRESSION: Lucent fracture line in the distal left humerus. The left forearm demonstrates no displ aced fracture with scattered degenerative disease.
--- NOTE | 2022-05-10 09:03 | DI ---
EXAM: Three views left shoulder HISTORY: Fall, left shoulder pain. COMPARISON: None. FINDINGS: Severe degenerative change of the left glenohumeral joint with calcified interarticular bodies. No f racture. No dislocation. Calcified granulomas in the left lung and mediastinum. Atherosclerotic calcifications. Status post coronary bypass and ligation of the left atrial appendage. Ventriculoperitoneal shunt tubing noted. IMPRESSION: No fracture or dislocation. Severe osteoarthritis.
[2022-05-10 09:19] LABS: MOLECULAR FLU A NEGATIVE BY NAAT (NEGATIVE); MOLECULAR FLU B NEGATIVE BY NAAT (NEGATIVE)
[2022-05-10 09:21] LABS: BILIRUBIN,URINE Negative (NEGATIVE); CLARITY,URINE Clear (CLEAR); COLOR,URINE Yellow (YELLOW); GLUCOSE, URINE (UA) 1+ (NEGATIVE); KETONES,URINE Negative (NEGATIVE); LEUKOCYTE ESTERASE ,URINE 1+ (NEGATIVE); NITRITE,URINE Negative (NEGATIVE); PROTEIN,URINE Trace (NEGATIVE); URINE, BLOOD Negative (NEGATIVE); UROBILINOGEN,URINE 0.2 (0.2)
[2022-05-10 09:28] LABS: BACTERIA,URINE 1+ (NOT PRESENT); URINE WBC, MICROSCOPIC 20-30 (0-2)
[2022-05-10] MEDS ORDERED: TYLENOL PO PRN ×2 (10:14→12:39)
[2022-05-10 10:33] LABS: SARS COV-2 RNA RAPID NAAT NEGATIVE (NEGATIVE)
[2022-05-10] MEDS: ROCEPHIN 1 GM/50 ML D5W 1 GM/50 ML BAG IV SCH (11:06)
[2022-05-10 12:17] VITALS: BMI 28.8
[2022-05-10] MEDS: HUMULIN R SUBCUT PRN ×3 (12:23→20:49)
[2022-05-10] MEDS ORDERED: POLYVINYL ALCOHOL OP PRN (12:39)
[2022-05-10] MEDS ORDERED: ARTIFICIAL TEARS DROPS EACHEYE PRN (13:09)
[2022-05-10] MEDS: TYLENOL PO PRN (14:03)
--- NOTE | 2022-05-10 14:37 | RS.PTINEVL ---
Subjective - Patient information Date of Evaluation: 05/10/22 Date of Arrival on Unit: 05/10/22 Admitted From:: Home Diagnosis: repeated falls, fx L distal humerus, muscle weakness, gait difficulty Usual Living Arrangement: Personal Care Facility ([facility]) Home Environment: Apartment, Level/No stairs Medical History: Hypertension, Diabetes, Arthritis Medical History Comments:: arrhythmia, AFib, COVID, glaucoma, subdural hematoma Surgical History: CABG Surgical History Comments:: hernia repair Medications: see chart Subjective Information/ Patient Comments:: pt states that she fell yesterday as well as today. pt reports that her legs just give way sometimes. pt states that she has fallen many times recently. - Level of function Prior to this admission, the patient could do the following:: Independent Selfcare, Independent ADL's, Independent Ambulation Current Level of Function: Partially Dependent Current Equipment Used at Home: shower chair, Rollator, glucometer, Pain Assessement - Location L elbow Description: Throbbing, Aching Intensity: 5 Pain Behavior: Withdrawal from Touch, Rubbing Site Pain Aggravating Factors: Changing Position, Exercise/Activity Pain Alleviating Factors: Medication Interventions - Objective Patient Orientation: Person, Place, Situation Current Interventions: Telemetry Observation: L elbow in splint and sling. pt is [facility]. Range of Motion - ROM Right Upper Extremity AROM: Moderate limitation (limited shld flex/abd, elbow, wrist and hand WFL's) Left Upper Extremity AROM: Moderate limitation (limited elbow ROM due to fx) Right Lower Extremity AROM: WFL's Left Lower Extremity AROM: WFL's Muscle Strength - Muscle Strength Right Upper Extremity Strength: Mild Weakness (shld flex 3-/5, elbow flex/ext 4/5) Left Upper Extremity Strength: Mild Weakness (shld flex 3-/5, elbow flex/ext n/t due to fx, finger flex WFL's) Right Lower Extremity Strength: Mild Weakness (hip flex 4-/5, knee flex/ext 4/5, ankle DF/PF 4/5) Left Lower Extremity Strength: Mild Weakness (hip flex 4-/5, knee flex/ext 4/5, ankle DF/PF 4/5) Sensation - Sensation Right Upper Extremity Sensation: Intact/Normal Left Upper Extremity Sensation: Intact/Normal Right Lower Extremity Sensation: Intact/Normal Left Lower Extremity Sensation: Intact/Normal Palpation Palpation Findings: Tenderness (to palpation L UE ) Balance - Sitting Balance and Reactions Static Sitting Balance: Fair (fair+) Dynamic Sitting Balance: Fair (fair -) Sitting Equilibrium Reactions: Delayed Left, Delayed Right Sitting Protective Reactions: Delayed Left, Delayed Right - Standing Balance and Reactions Static Standing Balance: Poor Dynamic Standing Balance: Poor Standing Equilibrium Reactions: Delayed Left, Delayed Right Standing Protective Reactions: Delayed Left, Delayed Right Functional Mobility - Bed Mobility Rolling R/L: Min Assist Scooting: Max Assist, 2 person assist Supine to Sit: Min Assist Sit to Supine: Min Assist - Transfers Sit to Stand: Min Assist (min+), 1 person assist Stand to Sit: Min Assist - Safety Awareness Safety Awareness: Fair CLIFF INDEX SCORE: n/a Ambulation - Ambulation Assistive Device Used: Brandt Walker Orthotic/Prosthetic Device: Yes (splint and sling LUE) Distance: 20ft x 2 Assistance needed with Ambulation: Min Assist, 1 person assist Gait Deviations: Wide Based gait, Forward posture, Displaced COG, Short stride, Deviates from path Ambulation Comments: pt amb with hemiwalker with assist advancing hemiwalker as well as cues for posture and step length. Factors Affecting Ambulation: Decreased Balance, Pain, Weakness, Decreased Coordination, Decreased ROM, Decreased Safety, Limited Endurance Treatment time - Units charged ADL: 1 (TA) - Time with patient Length of Evaluation: 19 Total treatment time: 29 Patient Education - Education Patient Education: Education of diagnosis, Education of Plan of Care Teaching Recipient: Patient Teaching Methods: Discussion, Demonstration Comments: discussion regarding POC and use of hemiwalker Assessment - Assessment Problem List:: Decreased level of function, Requires training/education, Decreased safety/Risk of falls, Weakness, Pain limits previous level of function Rehab Potential: Good Further Therapy Indicated?: Yes Candidate for Swing Bed for Therapy Services?: pt's plan is to go to [facility] for rehab. Evaluation Complexity: HISTORY: Medium, EXAM OF BODY SYSTEMS: Medium, CLINICAL PRESENTATION: Medium, CLINICAL DECISION MAKING: Medium Patient's Goal(s): "I want to be able to get stronger and walk." Short Term Goals GOAL #1: Rolling in bed with bedrails CGA Goal to be met by: 05/12/22 GOAL #2: Transfer sup to/from sit CGA Goal to be met by: 05/12/22 GOAL #3: Transfer sit to/from stand CGA Goal to be met by: 05/12/22 GOAL #4: pt amb with hemiwalker 50ft with CGA to min x 1. Goal to be met by: 05/12/22 GOAL #5: Improve LE strength 4 to 4+/5 Goal to be met by: 05/12/22 Care Home Goals GOAL #1: Transfer sup to/from sit to/from stand SBA Goal to be met by: 05/16/22 GOAL #2: Amb 100ft with hemiwalker and CGA to SBA with no LOB Goal to be met by: 05/16/22 GOAL #3: Improve dyn stand balance to fair Goal to be met by: 05/16/22 Plan Plan of Care: Therapeutic EX, Therapeutic Activity Other:: gait training Frequency of Treatment: 1-2 X day, as tolerated Duration of Treatment: 1 Week Anticipated Discharge Destination: [facility] Treatment Diagnosis (ICD 10 Codes): fx L humerus. repeated falls R 29.6. impaired balance R 26.81. gait difficulty R 26.2. weakness M62.81 Has the Physician been added for Co-signature?: Yes
[2022-05-10] MEDS: TOPROL XL PO SCH (20:34)
[2022-05-10] MEDS: MEVACOR PO SCH (20:34)
[2022-05-10] MEDS: REMERON PO SCH (20:35)
[2022-05-10] MEDS: TIMOPTIC 0.25% OPTH EACHEYE SCH (20:35)
[2022-05-10] MEDS: XALATAN EACHEYE SCH (20:43)
[2022-05-10] MEDS: WHITE PETROLATUM MINERAL OIL EACHEYE SCH (20:47)
[2022-05-10] MEDS ORDERED: LATANOPROST OP SCH (21:00)
[2022-05-10] MEDS ORDERED: LOVASTATIN 40 MG PO SCH (21:00)
[2022-05-10] MEDS ORDERED: TIMOLOL 0.25% OP SCH (21:00)
[2022-05-11] MEDS: TYLENOL PO PRN ×2 (01:26→10:24)
[2022-05-11 05:23] LABS: BASOPHILS # (AUTO) 0.1 K/uL (0-0.2); BASOPHILS % (AUTO) 0.5 % (0.0-3.0); EOSINOPHILS # (AUTO) 0.4 K/ul (0.0-0.7); EOSINOPHILS % (AUTO) 3.3 % (0.0-7.0); HEMATOCRIT 38.7 % (37.0-47.0); HEMOGLOBIN 12.9 g/dl (12.0-16.0); IMMATURE GRANULOCYTE # (AUTO) 0.1 (0.0-1.0); IMMATURE GRANULOCYTE % (AUTO) 0.7 % (0.0-5.0); LYMPHOCYTES # (AUTO) 3.7 K/uL (0.60-3.4); LYMPHOCYTES % (AUTO) 34.5 (10.0-50.0); MEAN CORPUSCULAR HEMOGLOBIN 29.9 pg (27.0-31.0); MEAN CORPUSCULAR HGB CONC 33.3 (31.8-35.4); MEAN CORPUSCULAR VOLUME 89.8 fl (81.0-99.0); MONOCYTES # (AUTO) 0.9 K/uL (0.4-2.0); MONOCYTES % (AUTO) 8.4 (0-10); NEUTROPHILS # (AUTO) 5.6 K/ul (2.0-6.9); NEUTROPHILS % (AUTO) 52.6 % (42.2-75.2); PLATELET COUNT 178 10^3/uL (140-440); RDW COEFFICIENT OF VARIATION 13.6 % (11.6-14.8); RED BLOOD COUNT 4.31 10^6/ul (4.20-5.40); WHITE BLOOD COUNT 10.62 K/ul (4.6-10.2)
[2022-05-11 05:33] LABS: ALANINE AMINOTRANSFERASE 22.7 U/L (0-35); ALBUMIN 4.04 g/dL (3.5-5.0); ALKALINE PHOSPHATASE 66.1 U/L (53-141); ASPARTATE AMINO TRANSFERASE 26.7 U/L (14-36); BILIRUBIN,TOTAL 0.67 mg/dL (0.2-1.3); BLOOD UREA NITROGEN 20.6 mg/dL (7-17); CALCIUM 9.68 mg/dL (8.4-10.2); CARBON DIOXIDE 20.9 mmol/L (22-30.0); CHLORIDE 104.3 mmol/L (98-107); CREATININE 1.06 mg/dL (0.60-1.30); GLUCOSE 233.6 mg/dL (74-106); POTASSIUM 4.52 mmol/L (3.5-5.1); SODIUM 133.8 mmol/L (134.5-145); TOTAL PROTEIN 7.74 g/dL (6.3-8.2)
[2022-05-11] MEDS: HUMULIN R SUBCUT PRN ×3 (06:30→18:01)
[2022-05-11] MEDS: ROCEPHIN 1 GM/50 ML D5W 1 GM/50 ML BAG IV SCH (09:42)
[2022-05-11] MEDS: LANOXIN PO SCH (09:45)
[2022-05-11] MEDS: VITAMIN D PO SCH (09:47)
[2022-05-11] MEDS: TOPROL XL PO SCH ×2 (09:48→20:31)
[2022-05-11] MEDS: ASPIRIN CHEWABLE PO SCH (09:48)
[2022-05-11] MEDS: COZAAR PO SCH (09:49)
[2022-05-11] MEDS: TIMOPTIC 0.25% OPTH EACHEYE SCH ×2 (09:49→20:33)
[2022-05-11] MEDS: TRADJENTA PO SCH (20:31)
[2022-05-11] MEDS: REMERON PO SCH (20:31)
[2022-05-11] MEDS: MEVACOR PO SCH (20:31)
[2022-05-11] MEDS: XALATAN EACHEYE SCH (20:33)
[2022-05-11] MEDS: WHITE PETROLATUM MINERAL OIL EACHEYE SCH (20:33)
[2022-05-11] MEDS ORDERED: HUMALOG SUBCUT SCH (21:00)
[2022-05-12 04:44] LABS: BASOPHILS # (AUTO) 0.1 K/uL (0-0.2); BASOPHILS % (AUTO) 0.5 % (0.0-3.0); EOSINOPHILS # (AUTO) 0.3 K/ul (0.0-0.7); EOSINOPHILS % (AUTO) 3.3 % (0.0-7.0); HEMATOCRIT 40.9 % (37.0-47.0); HEMOGLOBIN 13.5 g/dl (12.0-16.0); IMMATURE GRANULOCYTE # (AUTO) 0.1 (0.0-1.0); IMMATURE GRANULOCYTE % (AUTO) 0.7 % (0.0-5.0); LYMPHOCYTES % (AUTO) 38.4 (10.0-50.0); MEAN CORPUSCULAR HEMOGLOBIN 29.7 pg (27.0-31.0); MEAN CORPUSCULAR VOLUME 90.1 fl (81.0-99.0); MONOCYTES # (AUTO) 0.9 K/uL (0.4-2.0); MONOCYTES % (AUTO) 9.1 (0-10); PLATELET COUNT 172 10^3/uL (140-440); RDW COEFFICIENT OF VARIATION 13.6 % (11.6-14.8); RED BLOOD COUNT 4.54 10^6/ul (4.20-5.40); WHITE BLOOD COUNT 10.32 K/ul (4.6-10.2)
[2022-05-12 04:56] LABS: ALBUMIN 4.04 g/dL (3.5-5.0); ALKALINE PHOSPHATASE 74.8 U/L (53-141); ASPARTATE AMINO TRANSFERASE 33.6 U/L (14-36); BILIRUBIN,TOTAL 0.68 mg/dL (0.2-1.3); BLOOD UREA NITROGEN 18.3 mg/dL (7-17); CALCIUM 9.96 mg/dL (8.4-10.2); CARBON DIOXIDE 23.1 mmol/L (22-30.0); CHLORIDE 106.5 mmol/L (98-107); CREATININE 1.08 mg/dL (0.60-1.30); GLUCOSE 228.2 mg/dL (74-106); POTASSIUM 4.45 mmol/L (3.5-5.1); SODIUM 137.1 mmol/L (134.5-145); TOTAL PROTEIN 7.78 g/dL (6.3-8.2)
[2022-05-12] MEDS: HUMULIN R SUBCUT PRN (06:12)
[2022-05-12] MEDS: PRILOSEC PO SCH (06:13)
[2022-05-12] MEDS: LASIX TAB PO SCH (06:13)
[2022-05-12] MEDS: COZAAR PO SCH (08:38)
[2022-05-12] MEDS: ASPIRIN CHEWABLE PO SCH (08:38)
[2022-05-12] MEDS: LANOXIN PO SCH (08:38)
[2022-05-12] MEDS: VITAMIN D PO SCH (08:41)
[2022-05-12] MEDS: TOPROL XL PO SCH ×2 (08:41→21:52)
[2022-05-12] MEDS: TIMOPTIC 0.25% OPTH EACHEYE SCH ×2 (08:42→21:54)
[2022-05-12] MEDS: HUMALOG SUBCUT SCH ×3 (09:59→17:33)
[2022-05-12] MEDS: LANTUS SUBCUT SCH (10:10)
[2022-05-12] MEDS ORDERED: CALMOSEPTINE OINTMENT TP SCH (13:00)
[2022-05-12] MEDS: CALMOSEPTINE OINTMENT TP SCH ×3 (13:23→21:54)
[2022-05-12] MEDS: ROCEPHIN 1 GM/50 ML D5W 1 GM/50 ML BAG IV SCH (14:23)
[2022-05-12] MEDS: TRADJENTA PO SCH (21:53)
[2022-05-12] MEDS: REMERON PO SCH (21:53)
[2022-05-12] MEDS: MEVACOR PO SCH (21:53)
[2022-05-12] MEDS: XALATAN EACHEYE SCH (21:54)
[2022-05-12] MEDS: WHITE PETROLATUM MINERAL OIL EACHEYE SCH (21:55)
[2022-05-13] MEDS: HUMULIN R SUBCUT PRN ×3 (06:40→17:11)
[2022-05-13] MEDS: TIMOPTIC 0.25% OPTH EACHEYE SCH ×2 (09:40→20:18)
[2022-05-13] MEDS: ROCEPHIN 1 GM/50 ML D5W 1 GM/50 ML BAG IV SCH (09:41)
[2022-05-13] MEDS: CALMOSEPTINE OINTMENT TP SCH ×4 (09:45→20:19)
[2022-05-13] MEDS: LANOXIN PO SCH (09:45)
[2022-05-13] MEDS: TOPROL XL PO SCH ×2 (09:47→20:14)
[2022-05-13] MEDS: COZAAR PO SCH (09:47)
[2022-05-13] MEDS: VITAMIN D PO SCH (09:47)
[2022-05-13] MEDS: ASPIRIN CHEWABLE PO SCH (09:47)
[2022-05-13] MEDS: HUMALOG SUBCUT SCH ×3 (09:55→17:19)
[2022-05-13] MEDS: LANTUS SUBCUT SCH ×2 (09:58→20:15)
[2022-05-13] MEDS ORDERED: LANTUS SUBCUT SCH (18:00)
[2022-05-13] MEDS: MEVACOR PO SCH (20:14)
[2022-05-13] MEDS: TRADJENTA PO SCH (20:14)
[2022-05-13] MEDS: REMERON PO SCH (20:14)
[2022-05-13] MEDS: XALATAN EACHEYE SCH (20:18)
[2022-05-13] MEDS: WHITE PETROLATUM MINERAL OIL EACHEYE SCH (20:19)
[2022-05-14] MEDS: LASIX TAB PO SCH (05:31)
[2022-05-14] MEDS: PRILOSEC PO SCH (05:32)
[2022-05-14] MEDS: TOPROL XL PO SCH ×2 (08:37→20:36)
[2022-05-14] MEDS: ASPIRIN CHEWABLE PO SCH (08:37)
[2022-05-14] MEDS: LANOXIN PO SCH (08:37)
[2022-05-14] MEDS: CALMOSEPTINE OINTMENT TP SCH ×4 (08:38→20:58)
[2022-05-14] MEDS: VITAMIN D PO SCH (08:38)
[2022-05-14] MEDS: COZAAR PO SCH (08:38)
[2022-05-14] MEDS: TIMOPTIC 0.25% OPTH EACHEYE SCH ×2 (08:39→20:58)
[2022-05-14] MEDS: LANTUS SUBCUT SCH ×2 (09:15→20:59)
[2022-05-14] MEDS: HUMALOG SUBCUT SCH ×3 (09:15→17:29)
[2022-05-14] MEDS: TYLENOL PO PRN ×2 (11:45→20:35)
[2022-05-14] MEDS: REMERON PO SCH (20:36)
[2022-05-14] MEDS: TRADJENTA PO SCH (20:36)
[2022-05-14] MEDS: MEVACOR PO SCH (20:36)
[2022-05-14] MEDS: XALATAN EACHEYE SCH (20:58)
[2022-05-14] MEDS: WHITE PETROLATUM MINERAL OIL EACHEYE SCH (21:00)
[2022-05-15] MEDS: TYLENOL PO PRN ×2 (05:37→16:49)
[2022-05-15] MEDS: TOPROL XL PO SCH (09:31)
[2022-05-15] MEDS: LANOXIN PO SCH (09:31)
[2022-05-15] MEDS: COZAAR PO SCH (09:32)
[2022-05-15] MEDS: VITAMIN D PO SCH (09:32)
[2022-05-15] MEDS: ASPIRIN CHEWABLE PO SCH (09:32)
[2022-05-15] MEDS: CALMOSEPTINE OINTMENT TP SCH ×3 (09:34→16:50)
[2022-05-15] MEDS: HUMALOG SUBCUT SCH ×3 (09:34→16:49)
[2022-05-15] MEDS: TIMOPTIC 0.25% OPTH EACHEYE SCH (09:35)
[2022-05-15] MEDS: LANTUS SUBCUT SCH (09:37)
[2022-05-15 14:41] VITALS: BP 135/70; TEMP 96.8
--- NOTE | 2022-05-15 16:36 | PCM.DC ---
Final Diagnosis: distal humerus fx Physical Exam Appearance: Well-appearing Ill-appearing: None Pain Distress: Mild Eyes: MARINO, EOMI and Conjunctiva clear ENT: Ears normal, Nose normal and Oropharynx normal Neck: Supple Respiratory: Airway patent, Breath sounds clear and Breath sounds equal Cardiovascular: RRR, Pulses normal, No rub and No murmur GI/: Soft, Nontender, No masses and Bowel sounds normal Musculoskeletal: Normal strength, No edema, No calf tenderness and Limited ROM Skin: Warm, Dry and Normal color Neurological: Sensation intact, Motor intact, Reflexes intact, Cranial nerves intact, Alert and Disoriented Psychiatric: Affect appropriate and Mood appropriate Reason for Hospitalization: unable to care for herself at assisted living Prognosis/Condition at Discharge: fair Medications at Discharge: see list Follow-ups: orthopedics as scheduled and with me in 2 weeks Discharge Disposition: [facility] Hospital Course: she did well during hospitalization, bp controlled and pain controlled--she remained intact neurovascular status---fsbs slightly elevated and will be followed as outpatient Plan: [place]---follow with orthopedics as outpatient
== END 2022-05-15 17:55 | DRG 563 ==
LOC: MEDSURG A 07:28 → ED 07:28 → MEDSURG A 11:56
PROVIDERS: ADMIT Family Medicine; ATTEND Family Medicine
DX: I48.91 Unspecified atrial fibrillation; E11.9 Type 2 diabetes mellitus without complications; Z79.4 Long term (current) use of insulin; Z91.81 History of falling; R26.2 Difficulty in walking, not elsewhere classified; Z20.822 Contact with and (suspected) exposure to COVID-19; J32.9 Chronic sinusitis, unspecified; Y92.9 Unspecified place or not applicable; Y99.9 Unspecified external cause status; S42.302A Unspecified fracture of shaft of humerus, left arm, initial encounter for closed fracture; Z51.81 Encounter for therapeutic drug level monitoring; Y93.9 Activity, unspecified; W01.0XXA Fall on same level from slipping, tripping and stumbling without subsequent striking against object, initial encounter; Z79.899 Other long term (current) drug therapy

== ENCOUNTER 2023-04-06 15:52 | Inpatient (IN) ==
[2023-04-06] MEDS ORDERED: DUONEB NEB ONE (16:06)
--- NOTE | 2023-04-06 16:09 | ED.PDOC ---
General ED Provider: Dr. 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 - Acquired absence of other specified parts of digestive tract (ICD- 10) Arrhythmia I49.9 - Cardiac arrhythmia, unspecified (ICD-10) Atrial fibrillation I48.91 - Unspecified atrial fibrillation (ICD-10) Diabetes E11.9 - Type 2 diabetes mellitus without complications (ICD-10) Dry eye syndrome of both eyes H04.123 - Dry eye syndrome of bilateral lacrimal glands (ICD-10) Glaucoma H40.9 - Unspecified glaucoma (ICD-10) HTN (hypertension) I10 - Essential (primary) hypertension (ICD-10) Family History Mother Diabetes FATHER Heart abnormality Mother Heart abnormality Social History Smoking and tobacco status: Never smoker Substance use type: does not use History of recent travel: No Surgical History H/O hernia repair Z98.890 - Other specified postprocedural states (ICD-10) Z87.19 - Personal history of other diseases of the digestive system (ICD-10) Hx of CABG Z95.1 - Presence of aortocoronary bypass graft (ICD-10) Female Reproductive History Menstrual Hx Hysterectomy: No Hx Tubal Ligation: No Course Course 04/06/23 16:17 04/06/23 16:17 Orders, Labs, Meds: Lab Review 04/06/23 04/06/23 04/06/23 16:14 16:17 18:12 WBC 16.63 H RBC 4.48 Hgb 13.3 Hct 40.8 MCV 91.1 MCH 29.7 MCHC 32.6 RDW Coeff of [place] 13.3 Plt Count 223 Immature Gran % (Auto) 0.5 Neut % (Auto) 75.2 Lymph % (Auto) 11.9 [place] % (Auto) 11.6 H Eos % (Auto) 0.4 Baso % (Auto) 0.4 Neut # (Auto) 12.5 H Lymph # (Auto) 2.0 [place] # (Auto) 1.9 Eos # (Auto) 0.1 Baso # (Auto) 0.1 Immature Gran # (Auto) 0.1 PT 10.4 INR 1.00 APTT 26.9 Sodium 129.9 L Potassium 4.25 Chloride 101.4 Carbon Dioxide 21.6 L Anion Gap 11.15 BUN 24.4 H Creatinine 1.29 Estimated GFR (MDRD) 39.00 BUN/Creatinine Ratio 18.91 Glucose 267.6 H Calcium 9.82 Total Bilirubin 0.76 AST 255.7 H ALT 40.7 H Alkaline Phosphatase 100.5 Troponin I 38.000 H* NT-Pro-B Natriuret Pep 6880 H Total Protein 8.05 Albumin 4.18 Globulin 3.87 Albumin/Globulin Ratio 1.08 Procalcitonin < 0.05 Urine Color Yellow Urine Clarity Clear Urine pH 5.5 Ur Specific [place] 1.020 Urine Protein 2+ H Urine Glucose (UA) 1+ H Urine Ketones Negative Urine Blood Negative Urine Nitrite Negative Urine Bilirubin Negative Urine Urobilinogen 0.2 Ur Leukocyte Esterase 1+ H Urine Microscopic WBC 2-5 Ur Squamous Epith Cells 5-10 Urine Bacteria 1+ Influ A Molecular Assay Negative by naat Influ B Molecular Assay Negative by naat RSV Antigen Negative by naat SARS CoV-2 RNA Rapid RILEY Negative Orders Category Date Time Status ADMIT PATIENT INPATIENT .TO [facility] (MONITORED BED) ADMISSION 04/06/23 19:14 Active EKG-(ED ONLY) Stat CARDIO 04/06/23 16:07 Completed TELEMETRY MONITORING TELE CARE 04/06/23 19:14 Active CBC W/ AUTO DIFF Stat LAB 04/06/23 16:17 Completed CMP [COMPREHENSIVE METABOLIC PANEL] Stat LAB 04/06/23 16:17 Completed COVID [SARS COV-2 RNA RAPID RILEY] Stat LAB 04/06/23 16:14 Completed FLU A & B MOLECULAR [FLU A/B MOLECULAR] Stat LAB 04/06/23 16:14 Completed NT-PROBNP Stat LAB 04/06/23 16:17 Completed PARTIAL THROMBOPLASTIN TIME Stat LAB 04/06/23 16:17 Completed PROCALCITONIN Stat LAB 04/06/23 16:17 Completed PT WITH INR Stat LAB 04/06/23 16:17 Completed RSV Stat LAB 04/06/23 16:14 Completed TROPONIN I Stat LAB 04/06/23 16:17 Completed TROPONIN I Stat LAB 04/06/23 19:24 Received URINALYSIS C & S IF INDICATED Stat LAB 04/06/23 18:12 Completed URINE CULTURE Stat LAB 04/06/23 18:12 Received Aspirin [Aspirin Chewable] Meds 04/06/23 17:09 Discontinued 324 mg PO ONCE ONE Azithromycin Inj [Zithromax] 500 mg Meds 04/06/23 17:21 Discontinued 0.9 % Sodium Chloride [Sodium Chloride] 250 ml IV ONCE Ceftriaxone/D5w 1 gm Premix [Rocephin 1 gm/50 ml D5w] Meds 04/06/23 17:21 Discontinued 1 gm in 50 ml IV ONCE Furosemide [Lasix] Meds 04/06/23 16:59 Discontinued 20 mg IVP ONCE ONE Heparin Sod,Pork in 0.45% NaCl [Heparin 25,000 Unit/250 Meds 04/06/23 17:45 Active ml NaCl] 25,000 unit in 250 ml IV TITRATION Ipratropium/Albuterol Neb [Duoneb] Meds 04/06/23 16:06 Discontinued 3 ml NEB ONCE ONE RESUSCITATION STATUS Routine OTHERS 04/06/23 19:15 Ordered CHEST, 1V AP ONLY Stat RADS 04/06/23 16:07 Completed Medications Generic Name Dose Route Start Last Admin Trade Name Freq PRN Reason Stop Dose Admin Heparin Sodium/Sodium Chloride 25,000 unit in 250 mls @ 10.8 mls/hr 04/06/23 17:45 Heparin 25,000 Unit/250 Ml Nacl IV TITRATION LAURA Protocol 12 UNIT/KG/HR Discontinued Medications Generic Name Dose Route Start Last Admin Trade Name Freq PRN Reason Stop Dose Admin Albuterol/Ipratropium 3 ml 04/06/23 16:06 04/06/23 16:18 Ipratropium/Albuterol Vial.Neb NEB 04/06/23 16:07 3 ml ONCE ONE Administration Aspirin 324 mg 04/06/23 17:09 04/06/23 17:18 Aspirin 81 Mg Tab.Chew PO 04/06/23 17:10 324 mg ONCE ONE Administration Furosemide 20 mg 04/06/23 16:59 04/06/23 17:19 Furosemide Inj 20 Mg/2 Ml Vial IVP 04/06/23 17:00 20 mg ONCE ONE Administration CEFTRIAXONE/D5W 1 GM PREMIX 1 gm in 50 mls @ 100 mls/hr 04/06/23 17:21 04/06/23 17:32 Rocephin 1 Gm/50 Ml D5w IV 04/06/23 17:50 100 mls/hr ONCE ONE Administration Azithromycin 500 mg/ Sodium 250 mls @ 250 mls/hr 04/06/23 17:21 04/06/23 18:07 Chloride IV 04/06/23 18:20 250 mls/hr ONCE ONE Administration Vital Signs: Temp Pulse Resp BP Pulse Ox 04/06/23 16:08 97.8 F 87 20 102/83 95 Discharge Plan Discharge Patient Disposition: ADMITTED INPATIENT Discharge Problem: Non-ST elevation CO (NSTEMI) CHF (congestive heart failure) Qualifiers: Heart failure type: other Qualified Code(s): I50.9 - Heart failure, unspecified ED Provider: SAMMY MELGAR Physician Progress Note: Patient presented by POV accompanied by her two sons with chief complaint of SOB and hypoxic episode while ambulating at her assisted care facility [facility]. Chart and triage notes reviewed. Has a history of multivessel CABG in 2011 and mild to mod neurocognitive disease. On digoxin and furosemide. Exam notable for audible rales bilateral on auscultation and mildly increased WOB. SpO2 normoxic on RA and vitals otherwise stable. EKG reviewed and does not demonstrate evidence of STEMI on by independent interpretation. CXR demonstrates bibasilar infiltrates L > R. Labs reviewed and notable for elevated transaminases, initial troponin of 38, and proBNP of 6800. Suspect congestive hepatopathy in setting of PNA, NSTEMI, CHF. Discussed goals of care with the patient and family members at bedside with R/B of admitting for hospitalization here vs transfer to facility with capability to perform cardiac interventions discussed at length and patients preference as well as those of her family are to stay here in [place] and admit for medical management at this time. Patient and family aware of potential risk of patients cardiac function worsening and lack of intervention available here and all are in agreement that aggressive measures, cardiac interventions, and/or general anesthesia would not be in patients best interest considering her concomitant dementia and the patients tendency to worsen the last several times she has had something done or has undergone a prolonged hospitalization. Also in agreement that transfer to higher level of care would likely confuse the patient and not be in the best interest of the patient. Discussed with hospitalist sponge maker CLEMENTINA Laughlin and agrees to accept patient for admission at this time.
[2023-04-06 16:12] VITALS: BMI 28.4
[2023-04-06 16:36] LABS: ALANINE AMINOTRANSFERASE 40.7 U/L (0-35); ALBUMIN 4.18 g/dL (3.5-5.0); ALKALINE PHOSPHATASE 100.5 U/L (53-141); ASPARTATE AMINO TRANSFERASE 255.7 U/L (14-36); BILIRUBIN,TOTAL 0.76 mg/dL (0.2-1.3); BLOOD UREA NITROGEN 24.4 mg/dL (7-17); CALCIUM 9.82 mg/dL (8.4-10.2); CARBON DIOXIDE 21.6 mmol/L (22-30.0); CHLORIDE 101.4 mmol/L (98-107); CREATININE 1.29 mg/dL (0.60-1.30); GLUCOSE 267.6 mg/dL (74-106); POTASSIUM 4.25 mmol/L (3.5-5.1); SODIUM 129.9 mmol/L (134.5-145); TOTAL PROTEIN 8.05 g/dL (6.3-8.2)
--- NOTE | 2023-04-06 16:42 | DI ---
EXAM: FRONTAL VIEW OF THE CHEST. HISTORY: Shortness of breath COMPARISON: 05/10/2022 FINDINGS: Cardiac silhouette is cardiomegaly. Pneumonia left lung base. Interstitial edema versus interstitial infiltrate bilateral lungs. No pneumothorax. Left-sided effusion. No acute osseous abnormality. IMPRESSION: 1. Developing pneumonia left lung base 2. Bilateral interstitial edema versus viral infiltrate. 3. Left-sided pleural effusion.
[2023-04-06 16:50] LABS: BASOPHILS # (AUTO) 0.1 K/uL (0-0.2); BASOPHILS % (AUTO) 0.4 % (0.0-3.0); EOSINOPHILS # (AUTO) 0.1 K/ul (0.0-0.7); EOSINOPHILS % (AUTO) 0.4 % (0.0-7.0); HEMATOCRIT 40.8 % (37.0-47.0); HEMOGLOBIN 13.3 g/dl (12.0-16.0); IMMATURE GRANULOCYTE # (AUTO) 0.1 (0.0-1.0); IMMATURE GRANULOCYTE % (AUTO) 0.5 % (0.0-5.0); LYMPHOCYTES % (AUTO) 11.9 (10.0-50.0); MEAN CORPUSCULAR HEMOGLOBIN 29.7 pg (27.0-31.0); MEAN CORPUSCULAR HGB CONC 32.6 (31.8-35.4); MEAN CORPUSCULAR VOLUME 91.1 fl (81.0-99.0); MONOCYTES # (AUTO) 1.9 K/uL (0.4-2.0); MONOCYTES % (AUTO) 11.6 (0-10); NEUTROPHILS # (AUTO) 12.5 K/ul (2.0-6.9); NEUTROPHILS % (AUTO) 75.2 % (42.2-75.2); PLATELET COUNT 223 10^3/uL (140-440); RDW COEFFICIENT OF VARIATION 13.3 % (11.6-14.8); RED BLOOD COUNT 4.48 10^6/ul (4.20-5.40); WHITE BLOOD COUNT 16.63 K/ul (4.6-10.2)
[2023-04-06 16:53] LABS: SARS COV-2 RNA RAPID NAAT NEGATIVE (NEGATIVE)
[2023-04-06 16:55] LABS: MOLECULAR FLU A NEGATIVE BY NAAT (NEGATIVE); MOLECULAR FLU B NEGATIVE BY NAAT (NEGATIVE); RSV MOLECULAR NEGATIVE BY NAAT (NEGATIVE)
[2023-04-06] MEDS ORDERED: LASIX IVP ONE (16:59)
[2023-04-06] MEDS ORDERED: ASPIRIN CHEWABLE PO ONE (17:09)
[2023-04-06] MEDS ORDERED: ROCEPHIN 1 GM/50 ML D5W 1 GM/50 ML BAG IV ONE (17:21)
[2023-04-06] MEDS ORDERED: ZITHROMAX 500 MG in SODIUM CHLORIDE 250 ML IV ONE (17:21)
[2023-04-06] MEDS ORDERED: HEPARIN 25,000 UNIT/250 ML NACL 25,000 UNIT/250 ML BAG IV SCH (17:45)
[2023-04-06 18:20] LABS: BILIRUBIN,URINE Negative (NEGATIVE); CLARITY,URINE Clear (CLEAR); COLOR,URINE Yellow (YELLOW); GLUCOSE, URINE (UA) 1+ (NEGATIVE); KETONES,URINE Negative (NEGATIVE); LEUKOCYTE ESTERASE ,URINE 1+ (NEGATIVE); NITRITE,URINE Negative (NEGATIVE); PH,URINE 5.5 (5-9); PROTEIN,URINE 2+ (NEGATIVE); URINE, BLOOD Negative (NEGATIVE); UROBILINOGEN,URINE 0.2 (0.2)
[2023-04-06 18:24] LABS: BACTERIA,URINE 1+ (NOT PRESENT)
[2023-04-06 19:26] LABS: PARTIAL THROMBOPLASTIN TIME 26.9 SEC (23.9-40.0); PROTHROMBIN TIME 10.4 SEC (9.3-11.0)
[2023-04-06] MEDS: LOPRESSOR PO SCH (22:08)
[2023-04-06] MEDS: REMERON PO SCH (22:09)
[2023-04-06] MEDS: LANOXIN PO SCH (22:09)
[2023-04-06] MEDS: LANTUS SUBCUT SCH (22:09)
[2023-04-07] MEDS: LASIX IVP SCH ×2 (06:28→17:10)
[2023-04-07 08:19] LABS: HEMATOCRIT 38.1 % (37.0-47.0); HEMOGLOBIN 12.5 g/dl (12.0-16.0); MEAN CORPUSCULAR HEMOGLOBIN 30.2 pg (27.0-31.0); MEAN CORPUSCULAR HGB CONC 32.8 (31.8-35.4); PLATELET COUNT 170 10^3/uL (140-440); RDW COEFFICIENT OF VARIATION 13.4 % (11.6-14.8); RED BLOOD COUNT 4.14 10^6/ul (4.20-5.40)
[2023-04-07 08:32] LABS: ANISOCYTOSIS NOT PRESENT (NOT PRESENT)
[2023-04-07] MEDS: LOPRESSOR PO SCH ×2 (08:33→20:07)
[2023-04-07] MEDS: LANOXIN PO SCH (08:33)
[2023-04-07] MEDS: LANTUS SUBCUT SCH (08:36)
[2023-04-07 09:24] LABS: CHOLESTEROL 113.4 mg/dL (0-200); HDL CHOLESTEROL 35.2 mg/dL (35-80); TRIGLYCERIDES 121.4 mg/dL (0-150)
[2023-04-07 09:56] LABS: THYROID STIMULATING HORMONE 2.5 uIU/L (0.465-4.68)
[2023-04-07 10:06] LABS: ALANINE AMINOTRANSFERASE 34.9 U/L (0-35); ALBUMIN 3.69 g/dL (3.5-5.0); ALKALINE PHOSPHATASE 88.6 U/L (53-141); ASPARTATE AMINO TRANSFERASE 173.6 U/L (14-36); BLOOD UREA NITROGEN 26.8 mg/dL (7-17); CALCIUM 9.35 mg/dL (8.4-10.2); CARBON DIOXIDE 22.1 mmol/L (22-30.0); CREATININE 1.17 mg/dL (0.60-1.30); GLUCOSE 179.5 mg/dL (74-106); POTASSIUM 4.03 mmol/L (3.5-5.1); SODIUM 130.8 mmol/L (134.5-145); TOTAL PROTEIN 7.38 g/dL (6.3-8.2)
[2023-04-07] MEDS: TYLENOL PO PRN (10:33)
[2023-04-07] MEDS: DOXY-100 100 MG in SODIUM CHLORIDE 100ML 100 ML IV SCH ×2 (10:38→21:07)
[2023-04-07] MEDS: LOVENOX SUBCUT SCH ×2 (10:41→20:07)
--- NOTE | 2023-04-07 10:48 | PCM ---
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 Patient was found to have O2 sat of 90%. In ER she was found to have LLL pneumonia, pleural effusion, and bilateral edema noted. She had elevated trop of 38, BNP 6880. EKG without significant changes. Pt denied chest pain but does have dementia at baseline. ER provider had extensive conversation with the son. He wished for patient to not be transferred, no cardiac cath/intervention. He requested to keep her here at [place]. He understands the limitations of our hospital with very limited resources. Patient was admitted for CHF, NSTEMI, PNA to [facility]. She was started on a heparin drip, given lasix, and rocephin/azith in ER. Patient did well through the night. Patient denies chest pain. Breathing improved per son. Has some conversational dyspnea. [place] [facility] Son states her mentation is much improved today as well. Of note, patient had a subdural hematoma in 2018. Was transferred to [facility] and evaluated by neurosurgery. No intervention done. Monitored and placed on keppra bid x5 days. Her CT at the time did show signs of NPH. She was worked up for this outpatient and ultimately had a PACKAGING LINE ATTENDANT shunt placed in 2018 as well. Son states this hasn't been checked in about 2 years now. Discussed risks of anticoagulation for nstemi with hx of brain bleed. Son understands and would like to continue plan of care. Case Discussed With Case Discussed With: Patient's case was discussed with the ER Physicians, Dr. Schmitt. [facility] Medical History Absence of gallbladder Z90.49 - Acquired absence of other specified parts of digestive tract (ICD- 10) Dry eye syndrome of both eyes H04.123 - Dry eye syndrome of bilateral lacrimal glands (ICD-10) Glaucoma H40.9 - Unspecified glaucoma (ICD-10) HTN (hypertension) I10 - Essential (primary) hypertension (ICD-10) Atrial fibrillation I48.91 - Unspecified atrial fibrillation (ICD-10) Diabetes E11.9 - Type 2 diabetes mellitus without complications (ICD-10) Arrhythmia I49.9 - Cardiac arrhythmia, unspecified (ICD-10) Surgical History H/O hernia repair Z98.890 - Other specified postprocedural states (ICD-10) Z87.19 - Personal history of other diseases of the digestive system (ICD-10) Hx of CABG 2011 Z95.1 - Presence of aortocoronary bypass graft (ICD-10) Family History Mother Diabetes FATHER Heart abnormality Mother Heart abnormality Social History Smoking and tobacco status: Never smoker Substance use type: does not use History of recent travel: No Allergies Allergies Allergy/AdvReac Type Severity Reaction Status Date / Time No Known Allergies Allergy Verified 04/06/23 19:15 Current Medications Home Medications aspirin 81 mg chewable tablet 81 mg PO DAILY 02/18/18 [History Confirmed 04/06/23 Last Taken 05/10/22 08:00] cholecalciferol (vitamin D3) 25 mcg (1,000 unit) tablet (Vitamin D3) 5,000 unit PO DAILY 02/18/18 [History Confirmed 04/06/23 Last Taken 05/10/22 08:00] digoxin 250 mcg (0.25 mg) tablet 250 mcg PO DAILY 02/18/18 [History Confirmed 04/06/23 Last Taken 05/10/22 08:00] furosemide 20 mg tablet (Lasix) 20 mg PO EVERY OTHER DAY 02/18/18 [History Confirmed 04/06/23 Last Taken 05/10/22 08:00] linagliptin 5 mg tablet (Tradjenta) 5 mg PO BEDTIME 02/18/18 [History Confirmed 04/06/23 Last Taken 05/09/22 21:00] lovastatin 40 mg tablet,extended release 24 hr (Altoprev) 40 mg PO BEDTIME 02/18/18 [History Confirmed 04/06/23 Last Taken 05/09/22 21:00] metoprolol succinate 25 mg tablet,extended release 24 hr 25 mg PO BID 02/18/18 [History Confirmed 04/06/23 Last Taken 05/10/22 08:00] omeprazole 20 mg capsule,delayed release 20 mg PO EVERY OTHER DAY 02/18/18 [History Confirmed 04/06/23 Last Taken 05/10/22 08:00] latanoprost (PF) 0.005 % eye drops 1 drp BOTHEYES BEDTIME 02/25/18 [History Confirmed 04/06/23 Last Taken 05/09/22 21:00] mirtazapine 15 mg tablet 15 mg PO BEDTIME 02/25/18 [History Confirmed 04/06/23 Last Taken 05/09/22 21:00] losartan 100 mg tablet 100 mg PO DAILY ##30 02/28/18 [Rx Confirmed 04/06/23 Last Taken 05/10/22 08:00] acetaminophen 325 mg tablet 650 mg PO Q4-6H PRN PAIN/FEVER 06/24/18 [History Confirmed 04/06/23 Last Taken Unknown] insulin glargine 100 unit/mL (3 mL) subcutaneous pen (Basaglar KwikPen U-100 Insulin) 50 unit SQ DAILY 06/24/18 [History Confirmed 04/06/23 Last Taken 12/19/21] polyethylene glycol 3350 17 gram oral powder packet (Miralax) 17 g PO DAILY PRN Constipation 06/24/18 [History Confirmed 04/06/23 Last Taken Unknown] insulin aspart U-100 100 unit/mL subcutaneous cartridge (Novolog PenFill U-100 Insulin aspart) 10 unit SQ TID 09/04/18 [History Confirmed 04/06/23 Last Taken 05/10/22 12:00] loperamide 2 mg capsule 2 mg PO Q6HR PRN Diarrhea 09/04/18 [History Confirmed 04/06/23 Last Taken Unknown] loratadine 10 mg tablet 10 mg PO DAILY PRN Allergy Symptoms 09/04/18 [History Confirmed 04/06/23 Last Taken 05/10/22 08:00] polyvinyl alcohol 1.4 % eye drops (Artificial Tears (polyvinyl alcohol)) 15 ml BOTHEYES BID PRN Dry Eye(S) 09/04/18 [History Confirmed 04/06/23 Last Taken 05/10/22 08:00] nifedipine 30 mg tablet,extended release 24 hr (Procardia XL) 30 mg PO DAILY #30 tabs 04/15/19 [Rx Confirmed 04/06/23 Last Taken 05/10/22 08:00] white petrolatum-mineral oil 94 %-3 % eye ointment (Systane Nighttime) 1 applic BOTHEYES BEDTIME 04/15/19 [History Confirmed 04/06/23 Last Taken 05/09/22 21:00] timolol 0.25 % eye drops 1 drp BOTHEYES BID 05/10/22 [History Confirmed 04/06/23 Last Taken 05/10/22 08:00] digoxin 125 mcg (0.125 mg) tablet 0.125 mg PO DAILY 04/06/23 [History Confirmed 04/06/23 Last Taken Unknown] Home Acetaminophen (Acetaminophen 325 Mg Tablet) 650 mg PO Q4H PRN PRN Reason: Mild Pain Last Admin: 04/07/23 10:33 Dose: 650 mg Albuterol/Ipratropium (Ipratropium/Albuterol Vial.Neb) 3 ml NEB RTQ6H PRN PRN Reason: Wheezing Digoxin (Digoxin 125 Mcg Tablet) 125 mcg PO DAILY [facility] Last Admin: 04/07/23 08:33 Dose: 125 mcg Enoxaparin Sodium (Enoxaparin Sodium 100 Mg/Ml Syr) 90 mg SUBCUT Q12HR [facility] Last Admin: 04/07/23 10:41 Dose: 90 mg Furosemide (Furosemide Inj 20 Mg/2 Ml Vial) 20 mg IVP BIDAC2 [facility] Last Admin: 04/07/23 06:28 Dose: 20 mg CEFTRIAXONE/D5W 1 GM PREMIX (Rocephin 1 Gm/50 Ml D5w) 1 gm in 50 mls @ 100 mls/hr IV BEDTIME LAURA Stop: 04/10/23 20:59 Doxycycline Hyclate 100 mg/ (Sodium Chloride) 100 mls @ 50 mls/hr IV Q12HR LAURA Stop: 04/10/23 08:59 Last Admin: 04/07/23 10:38 Dose: 50 mls/hr MAGNESIUM SULFATE IN WATER (Magnesium Sulf 2 G/50 Ml Bag) 2 gm in 50 mls @ 25 mls/hr IV ONCE ONE Stop: 04/07/23 13:37 Insulin Glargine (Insulin Glargine,Hum.Rec.Anlog 100 Units/Ml) 50 unit SUBCUT DAILY [facility] Last Admin: 04/07/23 08:36 Dose: 50 unit Insulin Human Lispro (Insulin Lispro 100 Unit/Ml (3 Ml) Vial) 0 unit SUBCUT PRN PRN; Protocol PRN Reason: Hyperglycemia Last Admin: 04/07/23 11:05 Dose: 2 unit Metoprolol Tartrate (Metoprolol Tartrate 25 Mg Tablet) 25 mg PO BID [facility] Last Admin: 04/07/23 08:33 Dose: 25 mg Mirtazapine (Mirtazapine 15 Mg Tablet) 15 mg PO BEDTIME [facility] Last Admin: 04/06/23 22:09 Dose: 15 mg Morphine Sulfate (Morphine Sulfate 2 Mg/Ml Syringe) 1 mg IVP Q6H PRN PRN Reason: Pain Omeprazole (Omeprazole 20 Mg Capsule.Dr) 20 mg PO EVERY OTHER DAY [facility] Ondansetron HCl (Ondansetron Hcl/Pf 4 Mg/2 Ml Sdv) 4 mg IVP Q6H PRN PRN Reason: Nausea / Vomiting Sodium Chloride (0.9% Sodium Chloride 10 Ml Disp.Syrin) 1 syr IVF Q8HR [facility] Discontinued Medications Albuterol/Ipratropium (Ipratropium/Albuterol Vial.Neb) 3 ml NEB ONCE ONE Stop: 04/06/23 16:07 Last Admin: 04/06/23 16:18 Dose: 3 ml Aspirin (Aspirin 81 Mg Tab.Chew) 324 mg PO ONCE ONE Stop: 04/06/23 17:10 Last Admin: 04/06/23 17:18 Dose: 324 mg Furosemide (Furosemide Inj 20 Mg/2 Ml Vial) 20 mg IVP ONCE ONE Stop: 04/06/23 17:00 Last Admin: 04/06/23 17:19 Dose: 20 mg CEFTRIAXONE/D5W 1 GM PREMIX (Rocephin 1 Gm/50 Ml D5w) 1 gm in 50 mls @ 100 mls/hr IV ONCE ONE Stop: 04/06/23 17:50 Last Admin: 04/06/23 17:32 Dose: 100 mls/hr Azithromycin 500 mg/ Sodium (Chloride) 250 mls @ 250 mls/hr IV ONCE ONE Stop: 04/06/23 18:20 Last Admin: 04/06/23 18:07 Dose: 250 mls/hr Heparin Sodium/Sodium Chloride (Heparin 25,000 Unit/250 Ml Nacl) 25,000 unit in 250 mls @ 10.8 mls/hr IV TITRATION LAURA; Protocol Last Titration: 04/07/23 02:15 Dose: 15.33 unit/kg/hr, 13.8 mls/hr Review of Systems Constitutional: Reports Weakness Head: Reports Normocephalic and Atraumatic Cardiovascular: Denies Chest pain, Chest Pressure or Edema Respiratory: Reports Cough and Shortness of air Gastrointestinal: Denies Nausea or Vomiting Genitourinary: Reports Frequency Neurological: Reports Weakness; Denies Headache Physical examination Most Recent Vital Signs: Most Recent Vital Signs Temperature 97.7 F 04/07/23 09:28 Temperature Source Oral 04/07/23 09:28 Temperature Source Oral 04/06/23 16:08 Pulse Rate 95 04/07/23 09:28 Respiratory Rate 26 H 04/07/23 09:28 Blood Pressure 113/66 04/07/23 09:28 Blood Pressure Mean 81 04/07/23 09:28 Blood Pressure Left Arm 120/66 04/06/23 20:39 Blood Pressure Location Left Arm 04/07/23 09:28 Blood Pressure Position Supine 04/07/23 02:00 O2 Sat by Pulse Oximetry 97 04/07/23 09:28 Oxygen Delivery Method Nasal Cannula 04/07/23 09:28 Oxygen Flow Rate 2 04/07/23 09:28 Height 5 ft 10 in 04/06/23 20:39 Weight 197 lb 6 oz 04/07/23 05:44 Telemetry Type Bedside Monitor 04/07/23 07:00 Telemetry Monitoring Continues 04/07/23 07:00 Irregular Telemetry Rate (Approximate) 80-90 BPM 04/07/23 07:00 Telemetry SPO2 95 04/06/23 20:40 EKG QRS Interval 0.09 04/07/23 07:00 Telemetry Strip Reading A- Fib 04/07/23 07:00 Appearance: Positive No Apparent Distress and Other (+Alert, Oriented to person and place. ) Skin: Positive [place], Warm and Good Turgor; Negative Rashes HEENT: Positive Normocephalic and Atraumatic Neck: Positive Supple and Midline Trachea Chest/Lungs: Positive Symmetrical With Equal Breath Sounds, Rhonci and Other (+conversational dyspnea noted ); Negative Wheezes Heart: Positive Irregular Rhythm GI/: Positive Soft, Nontender, Bowel Sounds Normal and No Distention Extremities: Negative Edema Neurological: Positive Cranial Nerves Intact, Alert, Oriented (oriented to person and place only. Poor insight. Dementia at baseline. ) and Other (+generalized weakness. ) Psychiatric: Positive Appropriate Mood and Appropriate Affect; Negative Normal Insight Labs This Visit Labs This Visit: Labs This Visit 04/06/23 04/06/23 04/06/23 16:14 16:17 18:12 WBC 16.63 H RBC 4.48 Hgb 13.3 Hct 40.8 MCV 91.1 MCH 29.7 MCHC 32.6 RDW Coeff of Aroldo 13.3 Plt Count 223 Immature Gran % (Auto) 0.5 Neut % (Auto) 75.2 Lymph % (Auto) 11.9 [place] % (Auto) 11.6 H Eos % (Auto) 0.4 Baso % (Auto) 0.4 Neut # (Auto) 12.5 H Lymph # (Auto) 2.0 [place] # (Auto) 1.9 Eos # (Auto) 0.1 Baso # (Auto) 0.1 Immature Gran # (Auto) 0.1 Neutrophils % (Manual) Lymphocytes % (Manual) Monocytes % (Manual) Eosinophils % (Manual) Anisocytosis PT 10.4 INR 1.00 APTT 26.9 Sodium 129.9 L Potassium 4.25 Chloride 101.4 Carbon Dioxide 21.6 L Anion Gap 11.15 BUN 24.4 H Creatinine 1.29 Estimated GFR (MDRD) 39.00 BUN/Creatinine Ratio 18.91 Glucose 267.6 H Hemoglobin A1c Calcium 9.82 Magnesium Total Bilirubin 0.76 AST 255.7 H ALT 40.7 H Alkaline Phosphatase 100.5 Troponin I 38.000 H* NT-Pro-B Natriuret Pep 6880 H Total Protein 8.05 Albumin 4.18 Globulin 3.87 Albumin/Globulin Ratio 1.08 Triglycerides Cholesterol LDL Cholesterol, Calc VLDL Cholesterol HDL Cholesterol Cholesterol/HDL Ratio Procalcitonin < 0.05 TSH Urine Color Yellow Urine Clarity Clear Urine pH 5.5 Ur Specific [place] 1.020 Urine Protein 2+ H Urine Glucose (UA) 1+ H Urine Ketones Negative Urine Blood Negative Urine Nitrite Negative Urine Bilirubin Negative Urine Urobilinogen 0.2 Ur Leukocyte Esterase 1+ H Urine Microscopic WBC 2-5 Ur Squamous Epith Cells 5-10 Urine Bacteria 1+ Influ A Molecular Assay Negative by naat Influ B Molecular Assay Negative by naat RSV Antigen Negative by naat SARS CoV-2 RNA Rapid RILEY Negative 04/06/23 04/06/23 04/07/23 19:15 19:24 01:45 WBC RBC Hgb Hct MCV MCH MCHC RDW Coeff of Aroldo Plt Count Immature Gran % (Auto) Neut % (Auto) Lymph % (Auto) [place] % (Auto) Eos % (Auto) Baso % (Auto) Neut # (Auto) Lymph # (Auto) [place] # (Auto) Eos # (Auto) Baso # (Auto) Immature Gran # (Auto) Neutrophils % (Manual) Lymphocytes % (Manual) Monocytes % (Manual) Eosinophils % (Manual) Anisocytosis PT INR APTT 38.0 D Sodium Potassium Chloride Carbon Dioxide Anion Gap BUN Creatinine Estimated GFR (MDRD) BUN/Creatinine Ratio Glucose Hemoglobin A1c Calcium Magnesium 1.89 Total Bilirubin AST ALT Alkaline Phosphatase Troponin I 39.200 H* 40.600 H* NT-Pro-B Natriuret Pep Total Protein Albumin Globulin Albumin/Globulin Ratio Triglycerides Cholesterol LDL Cholesterol, Calc VLDL Cholesterol HDL Cholesterol Cholesterol/HDL Ratio Procalcitonin TSH Urine Color Urine Clarity Urine pH Ur Specific [place] Urine Protein Urine Glucose (UA) Urine Ketones Urine Blood Urine Nitrite Urine Bilirubin Urine Urobilinogen Ur Leukocyte Esterase Urine Microscopic WBC Ur Squamous Epith Cells Urine Bacteria Influ A Molecular Assay Influ B Molecular Assay RSV Antigen SARS CoV-2 RNA Rapid RILEY 04/07/23 08:06 WBC 15.60 H RBC 4.14 L Hgb 12.5 Hct 38.1 MCV 92.0 MCH 30.2 MCHC 32.8 RDW Coeff of Aroldo 13.4 Plt Count 170 Immature Gran % (Auto) Neut % (Auto) Lymph % (Auto) [place] % (Auto) Eos % (Auto) Baso % (Auto) Neut # (Auto) Lymph # (Auto) [place] # (Auto) Eos # (Auto) Baso # (Auto) Immature Gran # (Auto) Neutrophils % (Manual) 72.0 Lymphocytes % (Manual) 16.0 Monocytes % (Manual) 11.0 H Eosinophils % (Manual) 1.0 Anisocytosis Not present PT INR APTT 58.6 H D Sodium 130.8 L Potassium 4.03 Chloride 104.0 Carbon Dioxide 22.1 Anion Gap 8.73 BUN 26.8 H Creatinine 1.17 Estimated GFR (MDRD) 44.00 BUN/Creatinine Ratio 22.90 Glucose 179.5 H D Hemoglobin A1c 9.78 H Calcium 9.35 Magnesium Total Bilirubin 1.00 AST 173.6 H D ALT 34.9 Alkaline Phosphatase 88.6 Troponin I 41.800 H* NT-Pro-B Natriuret Pep Total Protein 7.38 Albumin 3.69 Globulin 3.69 Albumin/Globulin Ratio 1.00 Triglycerides 121.4 Cholesterol 113.4 LDL Cholesterol, Calc 54 VLDL Cholesterol 24 HDL Cholesterol 35.2 Cholesterol/HDL Ratio 3.2 L Procalcitonin TSH 2.500 Urine Color Urine Clarity Urine pH Ur Specific [place] Urine Protein Urine Glucose (UA) Urine Ketones Urine Blood Urine Nitrite Urine Bilirubin Urine Urobilinogen Ur Leukocyte Esterase Urine Microscopic WBC Ur Squamous Epith Cells Urine Bacteria Influ A Molecular Assay Influ B Molecular Assay RSV Antigen SARS CoV-2 RNA Rapid RILEY Microbiology This Visit 04/06/23 18:12 Urine,Clean Catch Urine Culture - Preliminary Imaging Imaging: EXAM: FRONTAL VIEW OF THE CHEST. HISTORY: Shortness of breath COMPARISON: 05/10/2022 FINDINGS: Cardiac silhouette is cardiomegaly. Pneumonia left lung base. Interstitial edema versus interstitial infiltrate bilateral lungs. No pneumothorax. Left-sided effusion. No acute osseous abnormality. IMPRESSION: 1. Developing pneumonia left lung base 2. Bilateral interstitial edema versus viral infiltrate. 3. Left-sided pleural effusion. Review Statement Review Statement: I have independently reviewed and interpreted the labs/EKGs/imaging that were ordered by the ER provider. I have reviewed all outside records that are available currently in our EMR including imaging/notes/labs from previous visits. Plan Plan: 1. NSTEMI in setting of CHF and CAP - Started on heparin drip with PTT q6hrs. Pt is very difficult blood draw. Will transition to lovenox 1mg/kg q12hrs. Will continue for 48 hrs total. Echo ordered. Metoprolol bid, holding other antihypertensives at this time as patient's BP had been on low end of normal. Will reevaluate regimen following echo results. Trop elevated but flat. K+ at goal of 4. Mag mildly low, will order rider with goal of 2.0. 2. Heart failure exacerbation, unknown type, in setting of NSTEMI - Pt likely had an MT event leading to heart failure. Echo ordered. Lasix 20 mg iv bid. I&Os. Daily weight. 3. CAP, left - Rocephin and doxy ordered. Duonebs ordered. 4. Suspect UTI - UC pending. Cont rocephin. 5. A fib - Chronic, stable. Cont digoxin and metoprolol. 6. History of subdural hematoma, 2018 - Discussed risks of lovenox/heparin with son with her hx of subdural bleed. He understands and wishes to proceed with treatment of nstemi. 7. NPH s/p PACKAGING LINE ATTENDANT shunt - Has not had shunt checked in past 2 years, no sign of malfunction. 8. DMT2, insulin dependent - Cont home long acting, SS humalog ordered, accuchecks achs. 9. Hyperlipidemia - Cont statin 10. Transaminitis, mild - Improving, likely in setting of HF congestion. Continue to monitor. DVT Prophylaxis: Lovenox Time Spent: Greater than 80 minutes spent with patient, 50% of the time spent with this patient was devoted to counseling and coordination of care. [facility]annin minutes spent discussing advance care planning. DNR Admit to: Inpatient Discussed Plan of Care with Dr. Samina Servin. Discussed plan of care extensively with son who is in agreement and has reasonable expectations. Medications Medication Orders: Medications Ordered Category Date Time Status 0.9 % Sodium Chloride [Saline Flush] Meds 04/07/23 13:00 Active 1 syr IVF Q8HR Acetaminophen [Tylenol] Meds 04/06/23 20:01 Active 650 mg PO Q4H PRN Ceftriaxone/D5w 1 gm Premix [Rocephin 1 gm/50 ml D5w] Meds 04/07/23 21:00 Active 1 gm in 50 ml IV BEDTIME Digoxin [Lanoxin] Meds 04/06/23 21:05 Active 125 mcg PO DAILY Doxycycline Hyclate Inj [Doxy-100] 100 mg Meds 04/07/23 09:00 Active 0.9 % Sodium Chloride [Sodium Chloride 100Ml] 100 ml IV Q12HR Enoxaparin Sodium [Lovenox] Meds 04/07/23 10:25 Active 90 mg SUBCUT Q12HR Furosemide [Lasix] Meds 04/07/23 06:00 Active 20 mg IVP BIDAC2 Insulin Glargine,Hum.rec.anlog [Lantus] Meds 04/06/23 21:15 Active 50 unit SUBCUT DAILY Insulin Lispro [Humalog] Meds 04/06/23 20:06 Active See Protocol SUBCUT PRN PRN Ipratropium/Albuterol Neb [Duoneb] Meds 04/06/23 20:06 Active 3 ml NEB RTQ6H PRN Metoprolol Tartrate [Lopressor] Meds 04/06/23 21:10 Active 25 mg PO BID Mirtazapine [Remeron] Meds 04/06/23 21:30 Active 15 mg PO BEDTIME Morphine Sulfate [Morphine 2 mg/ml Syringe] Meds 04/06/23 21:08 Active 1 mg IVP Q6H PRN Omeprazole [Prilosec] Meds 04/08/23 09:00 Active 20 mg PO EVERY OTHER DAY Ondansetron HCl/Pf [Zofran 4 mg/2 ml] Meds 04/06/23 20:16 Active 4 mg IVP Q6H PRN
[2023-04-07] MEDS: HUMALOG SUBCUT PRN ×2 (11:05→17:18)
[2023-04-07] MEDS ORDERED: MAGNESIUM SULF 2 G/50 ML BAG 2 GM/50 ML PIGGYBACK IV ONE (11:38)
--- NOTE | 2023-04-07 13:35 | ECHO2D ---
Date of Exam: 04/07/2023 Ordering Physician: HOSPITALIST--Jesika MCRAE/ DR. DASILVA Room #: [facility]U2 Reason for Echo: N-STEMI, SOB, A-FIB, HTN, DM2, HX CABG, CHF M-Mode Normal Adult Results LV Dimensions Normal Adult Results AoV Opening excursions >1.6 >1.6 LVEDD-base- 3.5-5.8 6.2 Ao root dimensions 2.0-3.7 3.3 LVESD-base- 3.1-4.6 L. Atrium dimensions 1.9-3.8 6.0 Post. Wall thickness 0.8-1.1 1.1 IV septum (thickness) 0.7-1.2 1.3 Post. Wall excursion 0.72-1.3 0.6 Septal motion 0.5 Systolic motion R. Ventricular cavity 1.5-2.0 NORMAL LVEF 60% 30-35% Paradoxical septal wall motion NORMAL 2-D : M Mode Echocardiogram --ENLARGED LEFT ATRIAL, LEFT VENTRICLE AND RIGHT ATRIAL CAVITIES, HYPOKINETIC LEFT VENTRICLE, VALVES--NORMAL, NO EFFUSION, NO THROMBUS COLOR FLOW--DOPPLER--MODERATE TRICUSPID REGURGITATION AND MITRAL REGURGITATION M-MODE: MV: CALCIFIC MITRAL VALVE ANNULUS AV: NORMAL TV: NORMAL PV: CHAMBER SIZE: ENLARGED LEFT ATRIAL, LEFT VENTRICLE AND RIGHT VENTRICLE CAVITIES WALL MOTION: HYPOKINETIC LEFT VENTRICLE PERICARDIUM: NORMAL INTERPRETATION: 1. LEFT VENTRICLE HYPERTROPHY 2. CALCIFIC MITRAL VALVE ANNULUS 3. HYPOKINETIC LEFT VENTRICLE WITH EJECTION FRACTION 30 TO 35% 4. ENLARGED LEFT ATRIAL, LEFT VENTRICLE AND RIGHT ATRIAL CAVITIES 5. COLOR FLOW--MODERATE MITRAL REGURGITATION AND TRICUSPID REGURGITATION 6. DILATED ISCHEMIC CARDIOMYOPATHY MTDD
[2023-04-07] MEDS: REMERON PO SCH (20:07)
[2023-04-07] MEDS: ROCEPHIN 1 GM/50 ML D5W 1 GM/50 ML BAG IV SCH (20:07)
[2023-04-08] MEDS: LASIX IVP SCH ×2 (06:02→16:27)
[2023-04-08 06:07] LABS: BASOPHILS # (AUTO) 0.1 K/uL (0-0.2); BASOPHILS % (AUTO) 0.3 % (0.0-3.0); EOSINOPHILS # (AUTO) 0.2 K/ul (0.0-0.7); EOSINOPHILS % (AUTO) 1.6 % (0.0-7.0); HEMATOCRIT 36.6 % (37.0-47.0); HEMOGLOBIN 12.1 g/dl (12.0-16.0); IMMATURE GRANULOCYTE # (AUTO) 0.1 (0.0-1.0); IMMATURE GRANULOCYTE % (AUTO) 0.6 % (0.0-5.0); LYMPHOCYTES # (AUTO) 2.3 K/uL (0.60-3.4); LYMPHOCYTES % (AUTO) 16.3 (10.0-50.0); MEAN CORPUSCULAR HGB CONC 33.1 (31.8-35.4); MEAN CORPUSCULAR VOLUME 90.8 fl (81.0-99.0); MONOCYTES # (AUTO) 1.6 K/uL (0.4-2.0); MONOCYTES % (AUTO) 11.3 (0-10); NEUTROPHILS # (AUTO) 10.1 K/ul (2.0-6.9); NEUTROPHILS % (AUTO) 69.9 % (42.2-75.2); PLATELET COUNT 183 10^3/uL (140-440); RDW COEFFICIENT OF VARIATION 13.2 % (11.6-14.8); RED BLOOD COUNT 4.03 10^6/ul (4.20-5.40); WHITE BLOOD COUNT 14.39 K/ul (4.6-10.2)
[2023-04-08 06:17] LABS: ALANINE AMINOTRANSFERASE 31.6 U/L (0-35); ALBUMIN 3.63 g/dL (3.5-5.0); ALKALINE PHOSPHATASE 91.2 U/L (53-141); ASPARTATE AMINO TRANSFERASE 114.3 U/L (14-36); BILIRUBIN,TOTAL 1.04 mg/dL (0.2-1.3); BLOOD UREA NITROGEN 26.6 mg/dL (7-17); CALCIUM 9.31 mg/dL (8.4-10.2); CARBON DIOXIDE 19.7 mmol/L (22-30.0); CHLORIDE 102.9 mmol/L (98-107); CREATININE 1.18 mg/dL (0.60-1.30); GLUCOSE 162.1 mg/dL (74-106); POTASSIUM 4.03 mmol/L (3.5-5.1); SODIUM 128.4 mmol/L (134.5-145); TOTAL PROTEIN 7.41 g/dL (6.3-8.2)
[2023-04-08 06:28] LABS: PARTIAL THROMBOPLASTIN TIME 31.9 SEC (23.9-40.0); PROTHROMBIN TIME 10.7 SEC (9.3-11.0)
[2023-04-08] MEDS: LANOXIN PO SCH (08:48)
[2023-04-08] MEDS: LOPRESSOR PO SCH ×2 (08:48→20:51)
[2023-04-08] MEDS: LANTUS SUBCUT SCH (08:50)
[2023-04-08] MEDS: LOVENOX SUBCUT SCH ×2 (08:53→20:52)
[2023-04-08] MEDS ORDERED: PRILOSEC PO SCH (09:00)
[2023-04-08] MEDS: DOXY-100 100 MG in SODIUM CHLORIDE 100ML 100 ML IV SCH ×2 (09:05→21:49)
--- NOTE | 2023-04-08 09:11 | PCM.PROG ---
Date/Time Seen Date Seen by Provider: 04/08/23 Time Seen by Provider: 08:30 Provider Provider: ANKUR WYMAN PA-C, [facility] Chief Complaint Chief Complaint: N STEMI,LLL PNA Subjective Subjective: Patient was very stressed and upset this morning because she had lost her hearing aids in her bed. She has since found them and feeling much better. She denies chest pain. She states she still feels SOB, but son states it is getting better. Patient was very confused yesterday afternoon/evening, back to baseline this morning. She has a very strict schedule of events at her assisted living and gets easily confused when out of that routine. Objective Appearance: Positive No Apparent Distress and Other (+Alert, oriented to person and place. ) Chest/Lungs: Positive Symmetrical With Equal Breath Sounds and Rhonci (+mild, improved ); Negative Rales or Wheezes Heart: Positive Irregular Rhythm GI/: Positive Soft, Nontender, Bowel Sounds Normal and No Distention Neurological: Positive Cranial Nerves Intact, Alert, Oriented (+to person and place, at baseline, dementia ) and Other (+generalized weakness ) Vital Signs Vital Signs: Vital Signs: Last 24 Hours 04/07/23 09:28 04/07/23 10:00 04/07/23 13:00 Temperature 97.7 F Temperature Source Oral Pulse Rate 95 Respiratory Rate 26 H Blood Pressure 113/66 Blood Pressure Mean 81 Blood Pressure Location Left Arm Blood Pressure Position O2 Sat by Pulse Oximetry 97 97 Oxygen Delivery Method Nasal Cannula Nasal Cannula Oxygen Flow Rate 2 2 Weight Telemetry Type Remote Telemetry Telemetry Monitoring Continues Irregular Telemetry Rate (Approximate) 80-90 BPM Telemetry Heart Rate Telemetry SPO2 EKG QRS Interval 0.09 Telemetry Strip Reading afib 04/07/23 13:48 04/07/23 14:00 04/07/23 18:00 Temperature 97.2 F L 98.2 F Temperature Source Temporal Artery Scan Temporal Artery Scan Pulse Rate 84 81 Respiratory Rate 29 H 29 H Blood Pressure 112/67 130/80 Blood Pressure Mean 82 96 Blood Pressure Location Left Arm Left Arm Blood Pressure Position O2 Sat by Pulse Oximetry 97 97 95 Oxygen Delivery Method Nasal Cannula Nasal Cannula Nasal Cannula Oxygen Flow Rate 2 2 2 Weight Telemetry Type Telemetry Monitoring Irregular Telemetry Rate (Approximate) Telemetry Heart Rate Telemetry SPO2 EKG QRS Interval Telemetry Strip Reading 04/07/23 19:00 04/07/23 19:08 04/07/23 19:16 Temperature Temperature Source Pulse Rate Respiratory Rate 26 H Blood Pressure Blood Pressure Mean Blood Pressure Location Blood Pressure Position O2 Sat by Pulse Oximetry 95 Oxygen Delivery Method Nasal Cannula Nasal Cannula Oxygen Flow Rate 2 2 Weight Telemetry Type Bedside Monitor Telemetry Monitoring Continues Irregular Telemetry Rate (Approximate) 80-90 BPM Telemetry Heart Rate Telemetry SPO2 95 EKG QRS Interval 0.12 H Telemetry Strip Reading AFIB WITH BBB 04/07/23 21:55 04/08/23 01:00 04/08/23 01:44 Temperature 97.6 F 98.6 F Temperature Source Temporal Artery Scan Temporal Artery Scan Pulse Rate 78 92 Respiratory Rate 22 H 21 H Blood Pressure 128/74 122/72 Blood Pressure Mean 92 88 Blood Pressure Location Left Arm Left Arm Blood Pressure Position Supine Supine O2 Sat by Pulse Oximetry 96 96 Oxygen Delivery Method Nasal Cannula Room Air Oxygen Flow Rate 2 Weight Telemetry Type Bedside Monitor Telemetry Monitoring Continues Irregular Telemetry Rate (Approximate) Telemetry Heart Rate 90 Telemetry SPO2 94 EKG QRS Interval 0.13 H Telemetry Strip Reading AFIB WITH BBB 04/08/23 05:24 04/08/23 05:24 04/08/23 05:50 Temperature 98.3 F Temperature Source Temporal Artery Scan Pulse Rate 91 Respiratory Rate 28 H Blood Pressure 119/77 Blood Pressure Mean 91 Blood Pressure Location Left Arm Blood Pressure Position Supine O2 Sat by Pulse Oximetry 96 93 L Oxygen Delivery Method Nasal Cannula Nasal Cannula Oxygen Flow Rate 2 2 Weight 197 lb 4 oz Telemetry Type Telemetry Monitoring Irregular Telemetry Rate (Approximate) Telemetry Heart Rate Telemetry SPO2 EKG QRS Interval Telemetry Strip Reading 04/08/23 07:00 Temperature Temperature Source Pulse Rate Respiratory Rate Blood Pressure Blood Pressure Mean Blood Pressure Location Blood Pressure Position O2 Sat by Pulse Oximetry Oxygen Delivery Method Oxygen Flow Rate Weight Telemetry Type Bedside Monitor Telemetry Monitoring Continues Irregular Telemetry Rate (Approximate) 90-100 BPM Telemetry Heart Rate Telemetry SPO2 EKG QRS Interval 0.09 Telemetry Strip Reading A- Fib Lab Results Lab Results: Lab Results: Last 24 Hours 04/08/23 04/07/23 05:53 08:06 WBC 14.39 H RBC 4.03 L Hgb 12.1 Hct 36.6 L MCV 90.8 MCH 30.0 MCHC 33.1 RDW Coeff of Aroldo 13.2 Plt Count 183 Immature Gran % (Auto) 0.6 Neut % (Auto) 69.9 Lymph % (Auto) 16.3 [place] % (Auto) 11.3 H Eos % (Auto) 1.6 Baso % (Auto) 0.3 Neut # (Auto) 10.1 H Lymph # (Auto) 2.3 [place] # (Auto) 1.6 Eos # (Auto) 0.2 Baso # (Auto) 0.1 Immature Gran # (Auto) 0.1 Neutrophils % (Manual) 72.0 Lymphocytes % (Manual) 16.0 Monocytes % (Manual) 11.0 H Eosinophils % (Manual) 1.0 Anisocytosis Not present PT 10.7 INR 1.03 APTT 31.9 D Sodium 128.4 L 130.8 L Potassium 4.03 4.03 Chloride 102.9 104.0 Carbon Dioxide 19.7 L 22.1 Anion Gap 9.83 8.73 BUN 26.6 H 26.8 H Creatinine 1.18 1.17 Estimated GFR (MDRD) 44.00 44.00 BUN/Creatinine Ratio 22.54 22.90 Glucose 162.1 H 179.5 H D Calcium 9.31 9.35 Total Bilirubin 1.04 1.00 AST 114.3 H D 173.6 H D ALT 31.6 34.9 Alkaline Phosphatase 91.2 88.6 Total Protein 7.41 7.38 Albumin 3.63 3.69 Globulin 3.78 3.69 Albumin/Globulin Ratio 0.96 1.00 Triglycerides 121.4 Cholesterol 113.4 LDL Cholesterol, Calc 54 VLDL Cholesterol 24 HDL Cholesterol 35.2 Cholesterol/HDL Ratio 3.2 L TSH 2.500 Additional Comments Additional Comments: I have independently reviewed and interpreted the labs/EKGs/imaging ordered during this hospital stay. I have reviewed outside records that are available in our EMR that pertain to medical stay including imaging/notes/labs from previous visits. Active Medications Active Medications: Medications Generic Name Dose Route Start Last Admin Trade Name Freq PRN Reason Stop Dose Admin Acetaminophen 650 mg 04/06/23 20:01 04/07/23 10:33 Acetaminophen 325 Mg Tablet PO 650 mg Q4H PRN Administration Mild Pain Albuterol/Ipratropium 3 ml 04/06/23 20:06 Ipratropium/Albuterol Vial.Neb NEB RTQ6H PRN Wheezing Digoxin 125 mcg 04/06/23 21:05 04/08/23 08:48 Digoxin 125 Mcg Tablet PO 125 mcg DAILY LAURA Administration Enoxaparin Sodium 90 mg 04/07/23 10:25 04/08/23 08:53 Enoxaparin Sodium 100 Mg/Ml Syr SUBCUT 04/08/23 23:00 90 mg Q12HR LAURA Administration Enoxaparin Sodium 40 mg 04/09/23 09:00 Enoxaparin Sodium 40 Mg/0.4 Ml Syr SUBCUT DAILY LAURA Furosemide 20 mg 04/07/23 06:00 04/08/23 06:02 Furosemide Inj 20 Mg/2 Ml Vial IVP 20 mg BIDAC2 LAURA Administration CEFTRIAXONE/D5W 1 GM PREMIX 1 gm in 50 mls @ 100 mls/hr 04/07/23 21:00 04/07/23 20:07 Rocephin 1 Gm/50 Ml D5w IV 04/10/23 20:59 100 mls/hr BEDTIME LAURA Administration Doxycycline Hyclate 100 mg/ 100 mls @ 50 mls/hr 04/07/23 09:00 04/08/23 09:05 Sodium Chloride IV 04/10/23 08:59 50 mls/hr Q12HR LAURA Administration Insulin Glargine 50 unit 04/06/23 21:15 04/08/23 08:50 Insulin Glargine,Hum.Rec.Anlog 100 Units/Ml SUBCUT 50 unit DAILY LAURA Administration Insulin Human Lispro 0 unit 04/06/23 20:06 04/07/23 17:18 Insulin Lispro 100 Unit/Ml (3 Ml) Vial SUBCUT 2 unit PRN PRN Administration Hyperglycemia Protocol Metoprolol Tartrate 25 mg 04/06/23 21:10 04/08/23 08:48 Metoprolol Tartrate 25 Mg Tablet PO 25 mg BID LAURA Administration Mirtazapine 15 mg 04/06/23 21:30 04/07/23 20:07 Mirtazapine 15 Mg Tablet PO 15 mg BEDTIME LAURA Administration Morphine Sulfate 1 mg 04/06/23 21:08 Morphine Sulfate 2 Mg/Ml Syringe IVP Q6H PRN Pain Omeprazole 20 mg 04/08/23 09:00 04/08/23 08:48 Omeprazole 20 Mg Capsule.Dr PO 20 mg EVERY OTHER DAY LAURA Administration Ondansetron HCl 4 mg 04/06/23 20:16 Ondansetron Hcl/Pf 4 Mg/2 Ml Sdv IVP Q6H PRN Nausea / Vomiting Sodium Chloride 1 syr 04/07/23 13:00 04/08/23 06:02 0.9% Sodium Chloride 10 Ml Disp.Syrin IVF 1 syr Q8HR LAURA Administration Plan Plan: 1. NSTEMI in setting of CHF and CAP - Continue lovenox 1mg/kg q12hrs. Will continue for 48 hrs total, ends tonight, then transition to prophylactic lovenox in AM. Metoprolol bid, add losartan back on. Trop elevated but flat. 2. Acute systolic heart failure exacerbation in setting of NSTEMI - Echo with EF 30-35%. Lasix 20 mg iv bid. I&Os. Daily weight. Cont metoprolol. Stop outpatient procardia. Add losartan back on today. Will hold aldactone in setting of hyponatremia for now. Will check prices of jardiance and entresto tomorrow. 3. CAP, left - Rocephin and doxy ordered. Duonebs ordered. 4. Suspect UTI - UC pending. Cont rocephin. 5. A fib - Chronic, stable. Cont digoxin and metoprolol. 6. History of subdural hematoma, 2018 - Discussed risks of lovenox/heparin with son with her hx of subdural bleed. He understands and wishes to proceed with treatment of nstemi. 7. 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 8. DMT2, insulin dependent - Cont home long acting, SS humalog ordered, accuchecks achs. 9. Hyperlipidemia - Cont statin 10. Transaminitis, mild - Improving, likely in setting of HF congestion. Continue to monitor. 11. Hyponatremia - Fluid restriction 1800 ml. Cont lasix. Monitor daily. DVT: lovenox Dispo: Will require at least 2 more days inpatient Review Statement Review Statement: I have personally discussed and reviewed the patient's visit/currently labs/imaging/decision making with Dr. Servin, my supervising attending. Greater that 50 minutes spent with patient, 50% of the time spent with this patient was devoted to counseling and coordination of care.
[2023-04-08] MEDS: COZAAR PO SCH (09:41)
[2023-04-08] MEDS: HUMALOG SUBCUT PRN ×3 (11:08→21:18)
[2023-04-08] MEDS: ZOFRAN 4 MG/2 ML IVP PRN (12:27)
[2023-04-08] MEDS: MORPHINE 2 MG/ML SYRINGE IVP PRN (12:37)
[2023-04-08] MEDS: MEVACOR PO SCH (16:31)
[2023-04-08] MEDS: TYLENOL PO PRN (16:32)
[2023-04-08] MEDS: REMERON PO SCH (20:51)
[2023-04-08] MEDS: ROCEPHIN 1 GM/50 ML D5W 1 GM/50 ML BAG IV SCH (20:51)
[2023-04-08] MEDS: TRADJENTA PO SCH (20:51)
[2023-04-08] MEDS ORDERED: LOVASTATIN 40 MG PO SCH (21:00)
[2023-04-09] MEDS: LASIX IVP SCH (05:17)
[2023-04-09 05:28] LABS: BASOPHILS # (AUTO) 0.1 K/uL (0-0.2); BASOPHILS % (AUTO) 0.5 % (0.0-3.0); EOSINOPHILS # (AUTO) 0.4 K/ul (0.0-0.7); EOSINOPHILS % (AUTO) 3.2 % (0.0-7.0); HEMATOCRIT 35.5 % (37.0-47.0); HEMOGLOBIN 11.7 g/dl (12.0-16.0); IMMATURE GRANULOCYTE # (AUTO) 0.1 (0.0-1.0); IMMATURE GRANULOCYTE % (AUTO) 0.7 % (0.0-5.0); LYMPHOCYTES # (AUTO) 2.3 K/uL (0.60-3.4); MONOCYTES # (AUTO) 1.4 K/uL (0.4-2.0); MONOCYTES % (AUTO) 11.7 (0-10); NEUTROPHILS % (AUTO) 64.9 % (42.2-75.2); PLATELET COUNT 191 10^3/uL (140-440); RDW COEFFICIENT OF VARIATION 13.3 % (11.6-14.8); WHITE BLOOD COUNT 12.26 K/ul (4.6-10.2)
[2023-04-09 06:06] LABS: PARTIAL THROMBOPLASTIN TIME 30.6 SEC (23.9-40.0); PROTHROMBIN TIME 10.6 SEC (9.3-11.0)
[2023-04-09 06:19] LABS: ALANINE AMINOTRANSFERASE 30.6 U/L (0-35); ALBUMIN 3.41 g/dL (3.5-5.0); ALKALINE PHOSPHATASE 83.3 U/L (53-141); BILIRUBIN,TOTAL 0.71 mg/dL (0.2-1.3); BLOOD UREA NITROGEN 36.4 mg/dL (7-17); CALCIUM 9.25 mg/dL (8.4-10.2); CARBON DIOXIDE 21.2 mmol/L (22-30.0); CHLORIDE 101.3 mmol/L (98-107); CREATININE 1.39 mg/dL (0.60-1.30); GLUCOSE 198.7 mg/dL (74-106); POTASSIUM 4.32 mmol/L (3.5-5.1); SODIUM 127.3 mmol/L (134.5-145); TOTAL PROTEIN 7.21 g/dL (6.3-8.2)
--- NOTE | 2023-04-09 09:09 | PCM.PROG ---
Date/Time Seen Date Seen by Provider: 04/09/23 Time Seen by Provider: 08:45 Provider Provider: ANKUR WYMAN PA-C, [facility] Chief Complaint Chief Complaint: N STEMI,LLL PNA Subjective Subjective: Patient sitting in chair today. Complains of her buttocks hurting in the chair. Otherwise no complaints. States "I'm 100% today." Son interested in swingbed if patient is a candidate. Patient ate all of her breakfast. Objective Appearance: Positive No Apparent Distress and Other (+Alert, oriented to person and place. ) Chest/Lungs: Positive Symmetrical With Equal Breath Sounds and Rhonci (+mild, improved ); Negative Rales or Wheezes Heart: Positive Irregular Rhythm GI/: Positive Soft, Nontender, Bowel Sounds Normal and No Distention Neurological: Positive Cranial Nerves Intact, Alert, Oriented (+to person, thinks she's at [facility] today, at baseline, dementia ) and Other (+generalized weakness ) Vital Signs Vital Signs: Vital Signs: Last 24 Hours 04/08/23 09:59 04/08/23 10:00 04/08/23 13:00 Temperature 97.6 F Temperature Source Temporal Artery Scan Pulse Rate 99 Respiratory Rate 17 Blood Pressure 111/67 Blood Pressure Mean 81 Blood Pressure Location Left Arm Blood Pressure Position Sitting O2 Sat by Pulse Oximetry 94 L Oxygen Delivery Method Nasal Cannula Nasal Cannula Oxygen Flow Rate 1 2 Weight Telemetry Type Remote Telemetry Telemetry Monitoring Continues Irregular Telemetry Rate (Approximate) 90-100 BPM Telemetry Heart Rate Telemetry SPO2 92 L EKG NV Interval EKG QRS Interval 0.07 Telemetry Strip Reading afib 04/08/23 14:00 04/08/23 14:00 04/08/23 18:00 Temperature 97.6 F 97.6 F Temperature Source Temporal Artery Scan Temporal Artery Scan Pulse Rate 88 91 Respiratory Rate 28 H 22 H Blood Pressure 115/61 98/60 Blood Pressure Mean 79 72 Blood Pressure Location Left Arm Left Arm Blood Pressure Position Sitting Sitting O2 Sat by Pulse Oximetry 92 L 95 Oxygen Delivery Method Nasal Cannula Nasal Cannula Nasal Cannula Oxygen Flow Rate 1 2 0.5 Weight Telemetry Type Telemetry Monitoring Irregular Telemetry Rate (Approximate) Telemetry Heart Rate Telemetry SPO2 EKG NV Interval EKG QRS Interval Telemetry Strip Reading 04/08/23 19:00 04/08/23 19:55 04/08/23 20:00 Temperature Temperature Source Pulse Rate Respiratory Rate 26 H Blood Pressure Blood Pressure Mean Blood Pressure Location Blood Pressure Position O2 Sat by Pulse Oximetry 93 L Oxygen Delivery Method Room Air Room Air Oxygen Flow Rate Weight Telemetry Type Bedside Monitor Telemetry Monitoring Continues Irregular Telemetry Rate (Approximate) 70-80 BPM Telemetry Heart Rate Telemetry SPO2 EKG NV Interval 0.06 L EKG QRS Interval Telemetry Strip Reading AFIB 04/08/23 21:30 04/09/23 01:00 04/09/23 02:00 Temperature 98.5 F 97.8 F Temperature Source Temporal Artery Scan Temporal Artery Scan Pulse Rate 83 90 Respiratory Rate 28 H 27 H Blood Pressure 112/65 113/69 Blood Pressure Mean 80 83 Blood Pressure Location Left Arm Left Arm Blood Pressure Position Supine Supine O2 Sat by Pulse Oximetry 96 92 L Oxygen Delivery Method Room Air Room Air Oxygen Flow Rate Weight Telemetry Type Bedside Monitor Telemetry Monitoring Continues Irregular Telemetry Rate (Approximate) 70-80 BPM Telemetry Heart Rate Telemetry SPO2 EKG NV Interval EKG QRS Interval 0.09 Telemetry Strip Reading AFIB 04/09/23 05:31 04/09/23 05:52 04/09/23 05:58 Temperature 97.4 F L Temperature Source Temporal Artery Scan Pulse Rate 81 Respiratory Rate 20 Blood Pressure 106/68 Blood Pressure Mean 80 Blood Pressure Location Left Arm Blood Pressure Position Supine O2 Sat by Pulse Oximetry 93 L 93 L Oxygen Delivery Method Room Air Room Air Oxygen Flow Rate Weight 196 lb 8 oz Telemetry Type Telemetry Monitoring Irregular Telemetry Rate (Approximate) Telemetry Heart Rate Telemetry SPO2 EKG NV Interval EKG QRS Interval Telemetry Strip Reading 04/09/23 07:00 Temperature Temperature Source Pulse Rate Respiratory Rate Blood Pressure Blood Pressure Mean Blood Pressure Location Blood Pressure Position O2 Sat by Pulse Oximetry Oxygen Delivery Method Oxygen Flow Rate Weight Telemetry Type Remote Telemetry Telemetry Monitoring Continues Irregular Telemetry Rate (Approximate) Telemetry Heart Rate 89 Telemetry SPO2 EKG NV Interval EKG QRS Interval 0.08 Telemetry Strip Reading Afib Lab Results Lab Results: Lab Results: Last 24 Hours 04/09/23 05:15 WBC 12.26 H RBC 3.90 L Hgb 11.7 L Hct 35.5 L MCV 91.0 MCH 30.0 MCHC 33.0 RDW Coeff of Aroldo 13.3 Plt Count 191 Immature Gran % (Auto) 0.7 Neut % (Auto) 64.9 Lymph % (Auto) 19.0 [place] % (Auto) 11.7 H Eos % (Auto) 3.2 Baso % (Auto) 0.5 Neut # (Auto) 8.0 H Lymph # (Auto) 2.3 [place] # (Auto) 1.4 Eos # (Auto) 0.4 Baso # (Auto) 0.1 Immature Gran # (Auto) 0.1 PT 10.6 INR 1.02 APTT 30.6 Sodium 127.3 L Potassium 4.32 Chloride 101.3 Carbon Dioxide 21.2 L Anion Gap 9.12 BUN 36.4 H Creatinine 1.39 H Estimated GFR (MDRD) 36.00 BUN/Creatinine Ratio 26.18 Glucose 198.7 H Calcium 9.25 Total Bilirubin 0.71 AST 80.0 H D ALT 30.6 Alkaline Phosphatase 83.3 Total Protein 7.21 Albumin 3.41 L Globulin 3.80 Albumin/Globulin Ratio 0.89 Additional Comments Additional Comments: I have independently reviewed and interpreted the labs/EKGs/imaging ordered during this hospital stay. I have reviewed outside records that are available in our EMR that pertain to medical stay including imaging/notes/labs from previous visits. Active Medications Active Medications: Medications Generic Name Dose Route Start Last Admin Trade Name Freq PRN Reason Stop Dose Admin Acetaminophen 650 mg 04/06/23 20:01 04/08/23 16:32 Acetaminophen 325 Mg Tablet PO 650 mg Q4H PRN Administration Mild Pain Albuterol/Ipratropium 3 ml 04/06/23 20:06 Ipratropium/Albuterol Vial.Neb NEB RTQ6H PRN Wheezing Aspirin 81 mg 04/09/23 07:30 Aspirin 81 Mg Tab.Chew PO DAILYWM2 LAURA Digoxin 125 mcg 04/06/23 21:05 04/08/23 08:48 Digoxin 125 Mcg Tablet PO 125 mcg DAILY LAURA Administration Enoxaparin Sodium 40 mg 04/09/23 09:00 Enoxaparin Sodium 40 Mg/0.4 Ml Syr SUBCUT DAILY LAURA Furosemide 20 mg 04/07/23 06:00 04/09/23 05:17 Furosemide Inj 20 Mg/2 Ml Vial IVP 20 mg BIDAC2 LAURA Administration CEFTRIAXONE/D5W 1 GM PREMIX 1 gm in 50 mls @ 100 mls/hr 04/07/23 21:00 04/08/23 20:51 Rocephin 1 Gm/50 Ml D5w IV 04/10/23 20:59 100 mls/hr BEDTIME LAURA Administration Doxycycline Hyclate 100 mg/ 100 mls @ 50 mls/hr 04/07/23 09:00 04/08/23 21:49 Sodium Chloride IV 04/10/23 08:59 50 mls/hr Q12HR LAURA Administration Insulin Glargine 50 unit 04/06/23 21:15 04/08/23 08:50 Insulin Glargine,Hum.Rec.Anlog 100 Units/Ml SUBCUT 50 unit DAILY LAURA Administration Insulin Human Lispro 0 unit 04/06/23 20:06 04/08/23 21:18 Insulin Lispro 100 Unit/Ml (3 Ml) Vial SUBCUT 4 unit PRN PRN Administration Hyperglycemia Protocol Linagliptin 5 mg 04/08/23 21:00 04/08/23 20:51 Linagliptin 5 Mg Tablet PO 5 mg BEDTIME LAURA Administration Losartan Potassium 50 mg 04/08/23 09:10 04/08/23 09:41 Losartan Potassium 25 Mg Tablet PO 50 mg DAILY LAURA Administration Lovastatin 40 mg 04/08/23 17:00 04/08/23 16:31 Lovastatin 20 Mg Tablet PO 40 mg QPM LAURA Administration Metoprolol Tartrate 25 mg 04/06/23 21:10 04/08/23 20:51 Metoprolol Tartrate 25 Mg Tablet PO 25 mg BID LAURA Administration Mirtazapine 15 mg 04/06/23 21:30 04/08/23 20:51 Mirtazapine 15 Mg Tablet PO 15 mg BEDTIME LAURA Administration Morphine Sulfate 1 mg 04/06/23 21:08 04/08/23 12:37 Morphine Sulfate 2 Mg/Ml Syringe IVP 1 mg Q6H PRN Administration Pain Omeprazole 20 mg 04/08/23 09:00 04/08/23 08:48 Omeprazole 20 Mg Capsule.Dr PO 20 mg EVERY OTHER DAY LAURA Administration Ondansetron HCl 4 mg 04/06/23 20:16 04/08/23 12:27 Ondansetron Hcl/Pf 4 Mg/2 Ml Sdv IVP 4 mg Q6H PRN Administration Nausea / Vomiting Sodium Chloride 1 syr 04/07/23 13:00 04/09/23 05:17 0.9% Sodium Chloride 10 Ml Disp.Syrin IVF 1 syr Q8HR LAURA Administration Sodium Chloride 1 gm 04/09/23 09:00 Sodium Chloride 1 Gm Tablet PO TID LAURA Plan Plan: 1. NSTEMI in setting of CHF and CAP - Completed lovenox x48 hours, transitioned to prophylactic lovenox today. Cont Metoprolol bid and losartan. Trop elevated but flat. 2. Acute systolic heart failure exacerbation in setting of NSTEMI - Echo with EF 30-35%. Transition lasix to PO today. I&Os. Daily weight. Cont metoprolol and losartan. Stop outpatient procardia. Will hold aldactone in setting of hyponatremia for now. Will check prices of jardiance and entresto. 3. CAP, left - Rocephin and doxy ordered. Duonebs ordered. 4. Suspect UTI - UC negative. 5. A fib - Chronic, stable. Cont digoxin and metoprolol. 6. History of subdural hematoma, 2018 - Discussed risks of lovenox/heparin with son with her hx of subdural bleed. He understands and wishes to proceed with treatment of nstemi. 7. NPH s/p [employer] shunt - Has not had shunt checked in past 2 years, no sign of malfunction. 8. DMT2, insulin dependent - Cont home long acting, SS humalog ordered, accuchecks achs. 9. Hyperlipidemia - Cont statin 10. Transaminitis, mild - Improving, likely in setting of HF congestion. Continue to monitor. 11. Hyponatremia - Fluid restriction 1800 ml. Cont lasix. Monitor daily. DVT: lovenox Dispo: Will talk with therapy about possibility of swingbed. Review Statement Review Statement: I have personally discussed and reviewed the patient's visit/currently labs/imaging/decision making with Dr. Servin, my supervising attending. Greater that 50 minutes spent with patient, 50% of the time spent with this patient was devoted to counseling and coordination of care.
[2023-04-09] MEDS: LANOXIN PO SCH (09:56)
[2023-04-09] MEDS: LOVENOX SUBCUT SCH (09:56)
[2023-04-09] MEDS: ASPIRIN CHEWABLE PO SCH (09:56)
[2023-04-09] MEDS: SODIUM CHLORIDE PO SCH ×3 (09:56→20:53)
[2023-04-09] MEDS: DOXY-100 100 MG in SODIUM CHLORIDE 100ML 100 ML IV SCH ×2 (09:57→21:39)
[2023-04-09] MEDS: COZAAR PO SCH (09:57)
[2023-04-09] MEDS: LOPRESSOR PO SCH ×2 (09:57→20:53)
[2023-04-09] MEDS: LANTUS SUBCUT SCH (09:58)
[2023-04-09] MEDS: HUMALOG SUBCUT PRN ×3 (14:36→22:46)
--- NOTE | 2023-04-09 15:21 | RS.PTINEVL ---
Subjective Patient information Date of Evaluation: 04/09/23 Date of Arrival on Unit: 04/06/23 Admitted From:: Home ([facility]) Diagnosis: LLE pneumonia, pleural effusion, B edema, NSTEMI w CHF Usual Living Arrangement: Personal Care Facility Living Arrangement Comments: [facility] Living Home Environment: Apartment and Level/No stairs Medical History: Diabetes, CHF and Arthritis Medical History Comments:: Afib, CKD, CAD, subdural hematoma, NPH, glaucoma LATEX ALLERGY?: No Surgical History: Cholecystectomy and CABG Surgical History Comments:: ELECTRICAL PRODUCTS ENGINEER shunt, hernia repair Medications: see chart Subjective Information/ Patient Comments:: pt states "can I go home now?" "has my been here yet today" Level of function Prior to this admission, the patient could do the following:: Independent Selfcare, Independent ADL's and Partially Dependent Ambulation Current Level of Function: Partially Dependent Current Equipment Used at Home: rolling wx Interventions Objective Patient Orientation: Person Current Interventions: IV's, Telemetry and Mcbride Catheter Observation: echo: L ventricular hypertrophy, dilated ischemic cardiomyopathy Range of Motion ROM Right Upper Extremity AROM: Slight limitation (limited shld flex ) Left Upper Extremity AROM: Slight limitation (limited shld flex ) Right Lower Extremity AROM: WFL's Left Lower Extremity AROM: WFL's Muscle Strength Muscle Strength Right Upper Extremity: Mild Weakness (shld flex 3/5, elbow flex/ext 4-/5) Left Upper Extremity: Mild Weakness (shld flex 3+/5, elbow flex/ext 4-/5) Right Lower Extremity: Mild Weakness (hip flex 3+/5, knee flex/ext 4-/5, ankle DF/PF 4-/5) Left Lower Extremity: Mild Weakness (hip flex 3+/5, knee flex/ext 4-/5, ankle DF/PF 4-/5) Sensation Sensation Right Upper Extremity: Intact/Normal Left Upper Extremity: Intact/Normal Right Lower Extremity: Intact/Normal Left Lower Extremity: Intact/Normal Palpation Palpation Findings: None/Normal Balance Sitting Balance and Reactions Static Sitting Balance: Fair Dynamic Sitting Balance: Poor Sitting Equilibrium Reactions: Delayed Left and Delayed Right Sitting Protective Reactions: Delayed Left and Delayed Right Standing Balance and Reactions Static Standing Balance: Poor Dynamic Standing Balance: Poor Standing Equilibrium Reactions: Delayed Left and Delayed Right Standing Protective Reactions: Delayed Left and Delayed Right Functional Mobility Bed Mobility Rolling R/L: Mod Assist and 1 person assist Scooting: Mod Assist and 2 person assist Sit to Supine: Mod Assist and 2 person assist Transfers Sit to Stand: Mod Assist and 2 person assist Stand to Sit: Mod Assist, Max Assist and 2 person assist Safety Awareness Safety Awareness: Poor CLIFF INDEX SCORE: n/a Ambulation Ambulation Assistive Device Used: Rolling Walker Orthotic/Prosthetic Device: No Distance: 40 Assistance needed with Ambulation: Mod Assist and 2 person assist Gait Deviations: Step-to gait, Forward posture, Short stride and Deviates from path Ambulation Comments: pt became tired and knees flexed worse at pt taking steps getting closer to the bed. pt required mod to max of 2 stand to sit. Factors Affecting Ambulation: Decreased Balance, Breathing/O2 Saturation, Weakness, Decreased Coordination, Decreased ROM, Decreased Safety, Cognitive Status and Limited Endurance Treatment time Units charged Gait trainin Time with patient Length of Evaluation: 19 Total treatment time: 31 Patient Education Education Patient Education: Activity Modification and Education of Plan of Care Teaching Recipient: Patient Teaching Methods: Discussion Comments: discussion regarding POC. Assessment Assessment Problem List:: Decreased level of function, Requires training/education, Decreased safety/Risk of falls, Weakness and Cognitive status limits abilities Rehab Potential: Fair Further Therapy Indicated?: Yes Candidate for Swing Bed for Therapy Services?: pt may be a candidate for swing bed if pt able to continue to follow commands and progress. Evaluation Complexity: HISTORY: Medium, EXAM OF BODY SYSTEMS: Medium, CLINICAL PRESENTATION: Medium and CLINICAL DECISION MAKING: Medium Patient's Goal(s): "I want to go home." Short Term Goals GOAL #1: pt able to perform rolling and bridging with min x 1 Goal to be met by: 04/12/23 GOAL #2: Transfer sup to/from sit min x 1 Goal to be met by: 04/12/23 GOAL #3: Transfer sit to/from stand min x 1 Goal to be met by: 04/12/23 GOAL #4: pt amb with rwx 50ft with min x 1 Goal to be met by: 04/12/23 GOAL #5: Improve LE strength 4- to 4/5 Goal to be met by: 04/12/23 Detention Goals GOAL #1: Transfer sup to/from sit to/from stand CGA Goal to be met by: 04/16/23 GOAL #2: Amb w rwx 100ft with CGA with improved posture and step length Goal to be met by: 04/16/23 GOAL #3: pt able to sit at edge of bed, reach away from and across midline w/o LOB Goal to be met by: 04/16/23 Plan Plan of Care: Therapeutic EX and Therapeutic Activity Other:: gait training Frequency of Treatment: 1-2 X day, as tolerated Duration of Treatment: 5-6 days Anticipated Discharge Destination: Assisted Living Facility Treatment Diagnosis (ICD 10 Codes): impaired balance R 26.81 difficulty walking R 26.2 weakness M62.81 Has the Physician been added for Co-signature?: Yes
[2023-04-09] MEDS: MEVACOR PO SCH (16:51)
[2023-04-09] MEDS: ROCEPHIN 1 GM/50 ML D5W 1 GM/50 ML BAG IV SCH (20:53)
[2023-04-09] MEDS: REMERON PO SCH (20:53)
[2023-04-09] MEDS: TRADJENTA PO SCH (20:53)
[2023-04-10] MEDS: DUONEB NEB PRN ×3 (00:24→15:35)
[2023-04-10] MEDS: LASIX TAB PO SCH (05:48)
[2023-04-10 05:49] LABS: BASOPHILS % (AUTO) 0.3 % (0.0-3.0); EOSINOPHILS % (AUTO) 0.2 % (0.0-7.0); HEMATOCRIT 35.9 % (37.0-47.0); HEMOGLOBIN 11.9 g/dl (12.0-16.0); IMMATURE GRANULOCYTE # (AUTO) 0.1 (0.0-1.0); IMMATURE GRANULOCYTE % (AUTO) 0.9 % (0.0-5.0); LYMPHOCYTES # (AUTO) 0.9 K/uL (0.60-3.4); LYMPHOCYTES % (AUTO) 6.1 (10.0-50.0); MEAN CORPUSCULAR HEMOGLOBIN 29.8 pg (27.0-31.0); MEAN CORPUSCULAR HGB CONC 33.1 (31.8-35.4); MONOCYTES # (AUTO) 1.7 K/uL (0.4-2.0); MONOCYTES % (AUTO) 12.1 (0-10); NEUTROPHILS # (AUTO) 11.1 K/ul (2.0-6.9); NEUTROPHILS % (AUTO) 80.4 % (42.2-75.2); PLATELET COUNT 230 10^3/uL (140-440); RDW COEFFICIENT OF VARIATION 13.1 % (11.6-14.8); RED BLOOD COUNT 3.99 10^6/ul (4.20-5.40); WHITE BLOOD COUNT 13.84 K/ul (4.6-10.2)
[2023-04-10 06:13] LABS: ALBUMIN 3.73 g/dL (3.5-5.0); ALKALINE PHOSPHATASE 94.9 U/L (53-141); BILIRUBIN,TOTAL 0.58 mg/dL (0.2-1.3); BLOOD UREA NITROGEN 44.3 mg/dL (7-17); CALCIUM 9.69 mg/dL (8.4-10.2); CARBON DIOXIDE 15.6 mmol/L (22-30.0); CHLORIDE 98.7 mmol/L (98-107); CREATININE 1.51 mg/dL (0.60-1.30); GLUCOSE 346.8 mg/dL (74-106); POTASSIUM 4.88 mmol/L (3.5-5.1); SODIUM 124.4 mmol/L (134.5-145); TOTAL PROTEIN 7.58 g/dL (6.3-8.2)
[2023-04-10] MEDS: HUMALOG SUBCUT PRN ×4 (06:29→21:31)
[2023-04-10 08:18] LABS: ABG O2 HGB 93.7 % (95-100); ABG PH 7.34 (7.35-7.45); BEecf -12.3 (-2.0-3.0); COHb 3.6 (0.5-1.5); HCO3 13.5 (21-28); MetHb 1.4 (0-1.5); TCO2 14.3 (19-24); sO2 95.9 % (94-98); tHb 13.1 g/dl (11.7-17.4)
[2023-04-10] MEDS: NITROSTAT SL STA ×2 (08:21→08:35)
[2023-04-10] MEDS ORDERED: MORPHINE 2 MG/ML SYRINGE IVP ONE (08:43)
[2023-04-10] MEDS: LOVENOX SUBCUT SCH (08:44)
[2023-04-10] MEDS: LANOXIN PO SCH (08:44)
[2023-04-10] MEDS: PRILOSEC PO SCH (08:45)
[2023-04-10] MEDS: SODIUM CHLORIDE PO SCH ×3 (08:45→21:15)
[2023-04-10] MEDS: LOPRESSOR PO SCH ×2 (08:46→20:16)
[2023-04-10] MEDS: DOXY-100 100 MG in SODIUM CHLORIDE 100ML 100 ML IV SCH ×2 (08:46→21:11)
[2023-04-10] MEDS: LANTUS SUBCUT SCH (08:46)
[2023-04-10] MEDS ORDERED: ASPIRIN CHEWABLE PO STA (08:47)
[2023-04-10] MEDS: COZAAR PO SCH (08:47)
[2023-04-10] MEDS: ASPIRIN CHEWABLE PO SCH (08:47)
[2023-04-10] MEDS ORDERED: ASPIRIN CHEWABLE ONE (08:51)
[2023-04-10] MEDS: ZOFRAN 4 MG/2 ML IVP PRN (08:53)
--- NOTE | 2023-04-10 10:20 | DI ---
EXAM: CHEST RADIOGRAPH TECHNIQUE: Single frontal chest radiograph. COMPARISON: 04/06/2023 HISTORY: Shortness of breath. FINDINGS: Cardiomegaly and arteriosclerosis are unchanged. Prominent bibasilar markings have increased. Small pleural effusions and bibasilar atelectasis are noted. No pneumothorax. No acute abnormality of the bones or soft tissues is identified. IMPRESSION: New mild cardiogenic pulmonary edema is suspected.
[2023-04-10] MEDS ORDERED: LASIX IVP ONE (10:53)
--- NOTE | 2023-04-10 12:19 | PCM.PROG ---
Date/Time Seen Date Seen by Provider: 04/10/23 Time Seen by Provider: 08:15 Provider Provider: ANKUR WYMAN PA-C, [facility] Chief Complaint Chief Complaint: N STEMI,LLL PNA Subjective Subjective: Patient had an episode this morning of nausea, vomiting, chest pain, diaphoresis, and labored breathing. Duoneb, troponin, nitro x2, zofran, morphine given. Patient was able to calm down and her breathing improved. EKG performed showing a new LBBB and st changes in v1-v3. Son at bedside. Objective Appearance: Positive Ill-Appearing and Other (+acutely distressed, poor color, diaphoretic) Chest/Lungs: Positive Symmetrical With Equal Breath Sounds and Wheezes (mild wheezing noted ) Heart: Positive Irregular Rhythm and Tachycardia GI/: Positive Soft, Nontender, Bowel Sounds Normal and No Distention Neurological: Positive Cranial Nerves Intact, Alert, Disorinted and Other (+generalized weakness ) Vital Signs Vital Signs: Vital Signs: Last 24 Hours 04/09/23 13:00 04/09/23 13:42 04/09/23 14:00 Temperature 97.9 F Temperature Source Oral Pulse Rate 94 Respiratory Rate 24 H Blood Pressure 89/55 L Blood Pressure Mean 66 Blood Pressure Location Left Arm Blood Pressure Position Sitting O2 Sat by Pulse Oximetry 97 Oxygen Delivery Method Room Air Room Air Oxygen Flow Rate Fraction of Inspired Oxygen (FIO2) Telemetry Type Remote Telemetry Telemetry Monitoring Continues Irregular Telemetry Rate (Approximate) 90-100 BPM Telemetry SPO2 EKG QRS Interval 0.10 Telemetry Strip Reading afib 04/09/23 18:00 04/09/23 19:00 04/09/23 19:46 Temperature 98.1 F Temperature Source Temporal Artery Scan Pulse Rate 101 H Respiratory Rate 29 H Blood Pressure 133/80 Blood Pressure Mean 97 Blood Pressure Location Left Arm Blood Pressure Position Supine O2 Sat by Pulse Oximetry 93 L 97 Oxygen Delivery Method Room Air Nasal Cannula Oxygen Flow Rate 2 Fraction of Inspired Oxygen (FIO2) Telemetry Type Remote Telemetry Telemetry Monitoring Continues Irregular Telemetry Rate (Approximate) 100-110 BPM Telemetry SPO2 EKG QRS Interval 0.09 Telemetry Strip Reading AFIB W/ RVR 04/09/23 22:00 04/09/23 22:16 04/10/23 01:00 Temperature 97.4 F L Temperature Source Temporal Artery Scan Pulse Rate 93 Respiratory Rate 24 H Blood Pressure 118/70 Blood Pressure Mean 86 Blood Pressure Location Left Arm Blood Pressure Position Supine O2 Sat by Pulse Oximetry 96 Oxygen Delivery Method Nasal Cannula Nasal Cannula Oxygen Flow Rate 2 Fraction of Inspired Oxygen (FIO2) 2 Telemetry Type Bedside Monitor Telemetry Monitoring Continues Irregular Telemetry Rate (Approximate) 90-100 BPM Telemetry SPO2 92 L EKG QRS Interval 0.09 Telemetry Strip Reading A-FIB 04/10/23 02:00 04/10/23 05:48 04/10/23 06:00 Temperature 98.1 F Temperature Source Oral Pulse Rate 93 91 Respiratory Rate 28 H 27 H Blood Pressure 119/72 141/79 H Blood Pressure Mean 87 99 Blood Pressure Location Left Arm Right Arm Blood Pressure Position Supine Sitting O2 Sat by Pulse Oximetry 94 L 94 L 92 L Oxygen Delivery Method Nasal Cannula Nasal Cannula Nasal Cannula Oxygen Flow Rate 2 2 2 Fraction of Inspired Oxygen (FIO2) Telemetry Type Telemetry Monitoring Irregular Telemetry Rate (Approximate) Telemetry SPO2 EKG QRS Interval Telemetry Strip Reading 04/10/23 07:00 04/10/23 08:44 04/10/23 10:00 Temperature 97.2 F L Temperature Source Axillary Pulse Rate 122 H 96 Respiratory Rate 26 H Blood Pressure 129/77 Blood Pressure Mean 94 Blood Pressure Location Left Radial Artery Blood Pressure Position Sitting O2 Sat by Pulse Oximetry 94 L Oxygen Delivery Method Nasal Cannula Oxygen Flow Rate 4 Fraction of Inspired Oxygen (FIO2) Telemetry Type Remote Telemetry Telemetry Monitoring Continues Irregular Telemetry Rate (Approximate) 90-100 BPM Telemetry SPO2 89 L EKG QRS Interval 0.09 Telemetry Strip Reading a fib Lab Results Lab Results: Lab Results: Last 24 Hours 04/10/23 04/10/23 04/10/23 08:13 08:10 05:43 WBC 13.84 H RBC 3.99 L Hgb 11.9 L Hct 35.9 L MCV 90.0 MCH 29.8 MCHC 33.1 RDW Coeff of Aroldo 13.1 Plt Count 230 Immature Gran % (Auto) 0.9 Neut % (Auto) 80.4 H Lymph % (Auto) 6.1 L [place] % (Auto) 12.1 H Eos % (Auto) 0.2 Baso % (Auto) 0.3 Neut # (Auto) 11.1 H Lymph # (Auto) 0.9 [place] # (Auto) 1.7 Eos # (Auto) 0.0 Baso # (Auto) 0.0 Immature Gran # (Auto) 0.1 Puncture Site Rbrach Base Excess -12.3 L O2 Saturation 95.9 ABG pH 7.34 L ABG pCO2 25.0 L ABG pO2 86.0 ABG HCO3 13.5 L ABG Total CO2 14.3 L Hemoglobin 1.4 Oxyhemoglobin 93.7 L Carboxyhemoglobin 3.6 H Total Hemoglobin 13.1 O2 Delivery Device Cannula Oxygen Liter Flow 3.00 Sodium 124.4 L Potassium 4.88 Chloride 98.7 Carbon Dioxide 15.6 L Anion Gap 14.98 BUN 44.3 H Creatinine 1.51 H Estimated GFR (MDRD) 33.00 BUN/Creatinine Ratio 29.33 Glucose 346.8 H Calcium 9.69 Total Bilirubin 0.58 AST 71.0 H ALT 35.0 Alkaline Phosphatase 94.9 Troponin I 19.100 H* Total Protein 7.58 Albumin 3.73 Globulin 3.85 Albumin/Globulin Ratio 0.96 Additional Comments Additional Comments: I have independently reviewed and interpreted the labs/EKGs/imaging ordered during this hospital stay. I have reviewed outside records that are available in our EMR that pertain to medical stay including imaging/notes/labs from previous visits. EKG this morning: LBBB with ST changes of V1-V3 compared to previous ekg, reviewed by Dr. Samina Servin as well. EXAM: CHEST RADIOGRAPH TECHNIQUE: Single frontal chest radiograph. COMPARISON: 04/06/2023 HISTORY: Shortness of breath. FINDINGS: Cardiomegaly and arteriosclerosis are unchanged. Prominent bibasilar markings have increased. Small pleural effusions and bibasilar atelectasis are noted. No pneumothorax. No acute abnormality of the bones or soft tissues is identified. IMPRESSION: New mild cardiogenic pulmonary edema is suspected. Active Medications Active Medications: Medications Generic Name Dose Route Start Last Admin Trade Name Freq PRN Reason Stop Dose Admin Acetaminophen 650 mg 04/06/23 20:01 04/08/23 16:32 Acetaminophen 325 Mg Tablet PO 650 mg Q4H PRN Administration Mild Pain Albuterol/Ipratropium 3 ml 04/06/23 20:06 04/10/23 07:54 Ipratropium/Albuterol Vial.Neb NEB 3 ml RTQ6H PRN Administration Wheezing Aspirin 81 mg 04/09/23 07:30 04/10/23 08:47 Aspirin 81 Mg Tab.Chew PO Not Given DAILYWM2 LAURA Digoxin 125 mcg 04/06/23 21:05 04/10/23 08:44 Digoxin 125 Mcg Tablet PO 125 mcg DAILY LAURA Administration Enoxaparin Sodium 40 mg 04/09/23 09:00 04/10/23 08:44 Enoxaparin Sodium 40 Mg/0.4 Ml Syr SUBCUT 40 mg DAILY LAURA Administration Furosemide 20 mg 04/10/23 06:00 04/10/23 05:48 Furosemide 20 Mg Tablet PO 20 mg QDAC2 LAURA Administration CEFTRIAXONE/D5W 1 GM PREMIX 1 gm in 50 mls @ 100 mls/hr 04/07/23 21:00 04/09/23 20:53 Rocephin 1 Gm/50 Ml D5w IV 04/10/23 20:59 100 mls/hr BEDTIME LAURA Administration Insulin Glargine 50 unit 04/06/23 21:15 04/10/23 08:46 Insulin Glargine,Hum.Rec.Anlog 100 Units/Ml SUBCUT 50 unit DAILY LAURA Administration Insulin Human Lispro 0 unit 04/10/23 11:31 04/10/23 11:34 Insulin Lispro 100 Unit/Ml (3 Ml) Vial SUBCUT 15 unit PRN PRN Administration Hyperglycemia Protocol Linagliptin 5 mg 04/08/23 21:00 04/09/23 20:53 Linagliptin 5 Mg Tablet PO 5 mg BEDTIME LAURA Administration Losartan Potassium 50 mg 04/08/23 09:10 04/10/23 08:47 Losartan Potassium 25 Mg Tablet PO Not Given DAILY LAURA Lovastatin 40 mg 04/08/23 17:00 04/09/23 16:51 Lovastatin 20 Mg Tablet PO 40 mg QPM LAURA Administration Metoprolol Tartrate 25 mg 04/06/23 21:10 04/10/23 08:46 Metoprolol Tartrate 25 Mg Tablet PO 25 mg BID LAURA Administration Mirtazapine 15 mg 04/06/23 21:30 04/09/23 20:53 Mirtazapine 15 Mg Tablet PO 15 mg BEDTIME LAURA Administration Morphine Sulfate 1 mg 04/06/23 21:08 04/08/23 12:37 Morphine Sulfate 2 Mg/Ml Syringe IVP 1 mg Q6H PRN Administration Pain Omeprazole 20 mg 04/10/23 07:30 04/10/23 08:45 Omeprazole 20 Mg Capsule. PO 20 mg Q48H LAURA Administration Ondansetron HCl 4 mg 04/06/23 20:16 04/10/23 08:53 Ondansetron Hcl/Pf 4 Mg/2 Ml Sdv IVP 4 mg Q6H PRN Administration Nausea / Vomiting Sodium Chloride 1 syr 04/07/23 13:00 04/10/23 05:56 0.9% Sodium Chloride 10 Ml Disp.Syrin IVF 1 syr Q8HR LAURA Administration Sodium Chloride 1 gm 04/09/23 09:00 04/10/23 08:45 Sodium Chloride 1 Gm Tablet PO 1 gm TID LAURA Administration Plan Plan: 1. Acute chest pain with st changes - Aspirin 325, morphine 1 mg, placed back on O2 at 4L, nitro SL x2, zofran IVP given this AM. ABG and CXR ordered. CXR showing some pulm edema. Lasix 40 x1 ordered. Family at bedside. 2. Acute hypoxic respiratory failure in setting of systolic heart failure and nstemi - Plan as above. wean O2 when able. 3. NSTEMI in setting of CHF and CAP - Completed lovenox x48 hours, transitioned to prophylactic lovenox. Cont Metoprolol bid, hold losartan today. Appears to have had another cardiac event this morning. 4. Acute systolic heart failure exacerbation in setting of NSTEMI - Worsened today. Lasix IV ordered. Echo with EF 30-35%. I&Os. Daily weight. Stop outpatient procardia. Will hold aldactone in setting of hyponatremia for now. Will check prices of jardiance and entresto. 5. CAP, left - Rocephin and doxy ordered. Duonebs ordered. 6. A fib - Chronic, stable. Cont digoxin and metoprolol. 7. History of subdural hematoma, 2018 - Discussed risks of lovenox/heparin with son with her hx of subdural bleed. He understands and wishes to proceed with treatment of nstemi. 8. 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 9. DMT2, insulin dependent - Cont home long acting, SS humalog ordered, accuchecks achs. 10. Hyperlipidemia - Cont statin 11. Transaminitis, mild - Improving, likely in setting of HF congestion. Co ntinue to monitor. 12. Hyponatremia - Fluid restriction 1800 ml. Cont lasix. Monitor daily. DVT: lovenox Dispo: Plan was to transition to swingbed today however this will be delayed due to event this morning. Patient clinically appears to have had another cardiac event this morning with symptoms of chest pain, shortness of breath, nausea and vomiting, diaphoresis and ST changes on EKG with a new left bundle bundle branch block. Family at bedside discussed plan of care options. Still no procedural intervention per family. We will medically manage symptoms. Patient did improve with the interventions given this morning including aspirin, morphine, nitro, oxygen, Zofran. Reevaluated patient multiple times and spoke with family multiple times. At 1200 she is improved, nonlabored breathing, folding washcloths in her chair. Family is concerned about her ability to return to an assisted living once she is stable enough for discharge. Discussed we can reevaluate her ability to do swing bed once we are through this acute phase. Discussed being cautiously optimistic that she is improved at this time. She is high risk to have another cardiac event that could be catastrophic. Family is understanding of this at this time. All questions answered. Also discussed in detail with my attending Dr. Chauncey Servin. Review Statement Review Statement: I have personally discussed and reviewed the patient's visit/currently labs/imaging/decision making with Dr. Servin, my supervising attending. Greater that 50 minutes spent with patient, 50% of the time spent with this patient was devoted to counseling and coordination of care. Critical Care Time Critical Care Time Critical Care Time: Yes Total Critical Care Time: 40 Attestation: Plan was to transition to swingbed today however this will be delayed due to event this morning. Patient clinically appears to have had another cardiac event this morning with symptoms of chest pain, shortness of breath, nausea and vomiting, diaphoresis and ST changes on EKG with a new left bundle bundle branch block. Family at bedside discussed plan of care options. Still no procedural intervention per family. We will medically manage symptoms. Patient did improve with the interventions given this morning including aspirin, morphine, nitro, oxygen, Zofran. Reevaluated patient multiple times and spoke with family multiple times. At 1200 she is improved, nonlabored breathing, folding washcloths in her chair. Family is concerned about her ability to return to an assisted living once she is stable enough for discharge. Discussed we can reevaluate her ability to do swing bed once we are through this acute phase. Discussed being cautiously optimistic that she is improved at this time. She is high risk to have another cardiac event that could be catastrophic. Family is understanding of this at this time. All questions answered. Also discussed in detail with my attending Dr. Chauncey Servin.
[2023-04-10] MEDS: MORPHINE 2 MG/ML SYRINGE IVP PRN (15:31)
[2023-04-10] MEDS: MEVACOR PO SCH (16:29)
[2023-04-10] MEDS: ROCEPHIN 1 GM/50 ML D5W 1 GM/50 ML BAG IV SCH (20:16)
[2023-04-10] MEDS: TRADJENTA PO SCH (20:16)
[2023-04-10] MEDS: REMERON PO SCH (20:17)
[2023-04-11] MEDS: MORPHINE 2 MG/ML SYRINGE IVP PRN ×3 (00:04→22:07)
[2023-04-11] MEDS: DUONEB NEB PRN (00:15)
[2023-04-11] MEDS: LASIX TAB PO SCH (05:24)
[2023-04-11] MEDS: HUMALOG SUBCUT PRN ×3 (06:11→17:02)
[2023-04-11 08:45] LABS: BASOPHILS # (AUTO) 0.1 K/uL (0-0.2); BASOPHILS % (AUTO) 0.4 % (0.0-3.0); EOSINOPHILS # (AUTO) 0.1 K/ul (0.0-0.7); EOSINOPHILS % (AUTO) 0.9 % (0.0-7.0); HEMATOCRIT 35.7 % (37.0-47.0); HEMOGLOBIN 11.6 g/dl (12.0-16.0); IMMATURE GRANULOCYTE # (AUTO) 0.1 (0.0-1.0); IMMATURE GRANULOCYTE % (AUTO) 0.7 % (0.0-5.0); LYMPHOCYTES # (AUTO) 1.3 K/uL (0.60-3.4); LYMPHOCYTES % (AUTO) 10.3 (10.0-50.0); MEAN CORPUSCULAR HEMOGLOBIN 29.7 pg (27.0-31.0); MEAN CORPUSCULAR HGB CONC 32.5 (31.8-35.4); MEAN CORPUSCULAR VOLUME 91.3 fl (81.0-99.0); MONOCYTES # (AUTO) 1.5 K/uL (0.4-2.0); MONOCYTES % (AUTO) 11.5 (0-10); NEUTROPHILS # (AUTO) 9.9 K/ul (2.0-6.9); NEUTROPHILS % (AUTO) 76.2 % (42.2-75.2); PLATELET COUNT 242 10^3/uL (140-440); RDW COEFFICIENT OF VARIATION 13.3 % (11.6-14.8); RED BLOOD COUNT 3.91 10^6/ul (4.20-5.40); WHITE BLOOD COUNT 12.99 K/ul (4.6-10.2)
[2023-04-11 08:57] LABS: ALANINE AMINOTRANSFERASE 42.6 U/L (0-35); ALBUMIN 3.71 g/dL (3.5-5.0); ALKALINE PHOSPHATASE 89.9 U/L (53-141); ASPARTATE AMINO TRANSFERASE 57.2 U/L (14-36); BILIRUBIN,TOTAL 0.36 mg/dL (0.2-1.3); CALCIUM 9.88 mg/dL (8.4-10.2); CARBON DIOXIDE 18.9 mmol/L (22-30.0); CREATININE 1.95 mg/dL (0.60-1.30); MAGNESIUM 2.44 mg/dL (1.6-2.3); POTASSIUM 4.88 mmol/L (3.5-5.1); SODIUM 127.2 mmol/L (134.5-145); TOTAL PROTEIN 7.7 g/dL (6.3-8.2)
[2023-04-11 09:04] LABS: BLOOD UREA NITROGEN 60.4 mg/dL (7-17)
[2023-04-11] MEDS: LOPRESSOR PO SCH ×2 (09:39→20:11)
[2023-04-11] MEDS: LANOXIN PO SCH (09:39)
[2023-04-11] MEDS: SODIUM CHLORIDE PO SCH ×4 (09:39→20:11)
[2023-04-11] MEDS: ASPIRIN CHEWABLE PO SCH (09:39)
[2023-04-11] MEDS: COZAAR PO SCH (09:39)
[2023-04-11] MEDS: LOVENOX SUBCUT SCH (09:43)
[2023-04-11] MEDS: LANTUS SUBCUT SCH (09:48)
[2023-04-11] MEDS: DOXY-100 100 MG in SODIUM CHLORIDE 100ML 100 ML IV SCH ×2 (10:18→21:09)
[2023-04-11] MEDS ORDERED: ATARAX PO ONE (10:44)
[2023-04-11] MEDS ORDERED: ALDACTONE PO SCH (10:55)
--- NOTE | 2023-04-11 10:55 | PCM.PROG ---
Date/Time Seen Date Seen by Provider: 04/11/23 Time Seen by Provider: 08:45 Provider Provider: [facility] Chief Complaint Chief Complaint: N STEMI,LLL PNA Subjective Subjective: Patient sitting in chair today. She is looking much better compared to yesterday. Had to replace nathan last night due to urinary retention. She still has some conversational dyspnea but overall better. Son at bedside. Objective Appearance: Positive Ill-Appearing (improved from yesterday however ) and Other (+acutely distressed, poor color, diaphoretic) Chest/Lungs: Positive Symmetrical With Equal Breath Sounds, Wheezes (mild wheezing noted ) and Other (+conversational dyspnea ) Heart: Positive Irregular Rhythm GI/: Positive Soft, Nontender, Bowel Sounds Normal and No Distention Neurological: Positive Cranial Nerves Intact, Alert, Disorinted and Other (+generalized weakness ) Vital Signs Vital Signs: Vital Signs: Last 24 Hours 04/10/23 13:00 04/10/23 13:56 04/10/23 14:00 Temperature 97.4 F L Temperature Source Axillary Pulse Rate 96 Respiratory Rate 24 H Blood Pressure 111/84 Blood Pressure Mean 93 Blood Pressure Location Left Radial Artery Blood Pressure Position Sitting O2 Sat by Pulse Oximetry 99 Oxygen Delivery Method Nasal Cannula Nasal Cannula Oxygen Flow Rate 3 4 Fraction of Inspired Oxygen (FIO2) Telemetry Type Remote Telemetry Telemetry Monitoring Continues Irregular Telemetry Rate (Approximate) 90-100 BPM Telemetry Heart Rate Telemetry SPO2 EKG QRS Interval 0.09 Telemetry Strip Reading AFIB 04/10/23 17:58 04/10/23 19:00 04/10/23 19:41 Temperature 97.6 F Temperature Source Oral Pulse Rate 90 Respiratory Rate 26 H Blood Pressure 105/72 Blood Pressure Mean 83 Blood Pressure Location Left Arm Blood Pressure Position O2 Sat by Pulse Oximetry 94 L 98 Oxygen Delivery Method Nasal Cannula Nasal Cannula Oxygen Flow Rate 4 3 Fraction of Inspired Oxygen (FIO2) Telemetry Type Remote Telemetry Telemetry Monitoring Continues Irregular Telemetry Rate (Approximate) Telemetry Heart Rate Telemetry SPO2 EKG QRS Interval 0.08 Telemetry Strip Reading A Fib 04/10/23 20:00 04/10/23 22:00 04/11/23 02:00 Temperature 97.8 F Temperature Source Oral Pulse Rate 95 Respiratory Rate 23 H Blood Pressure 103/64 Blood Pressure Mean 77 Blood Pressure Location Left Arm Blood Pressure Position Supine O2 Sat by Pulse Oximetry 99 Oxygen Delivery Method Nasal Cannula Nasal Cannula Oxygen Flow Rate 4 Fraction of Inspired Oxygen (FIO2) 4 Telemetry Type Remote Telemetry Telemetry Monitoring Continues Irregular Telemetry Rate (Approximate) 90-100 BPM Telemetry Heart Rate Telemetry SPO2 EKG QRS Interval 0.14 H Telemetry Strip Reading A fib 04/11/23 02:00 04/11/23 05:35 04/11/23 05:55 Temperature 98.1 F 97.9 F Temperature Source Axillary Axillary Pulse Rate 103 H 100 Respiratory Rate 20 22 H Blood Pressure 121/63 130/75 Blood Pressure Mean 82 93 Blood Pressure Location Left Arm Left Arm Blood Pressure Position Supine Sitting O2 Sat by Pulse Oximetry 97 99 Oxygen Delivery Method Nasal Cannula Nasal Cannula Nasal Cannula Oxygen Flow Rate 4 3 4 Fraction of Inspired Oxygen (FIO2) Telemetry Type Telemetry Monitoring Irregular Telemetry Rate (Approximate) Telemetry Heart Rate Telemetry SPO2 EKG QRS Interval Telemetry Strip Reading 04/11/23 07:00 04/11/23 08:00 04/11/23 09:39 Temperature Temperature Source Pulse Rate 89 Respiratory Rate Blood Pressure Blood Pressure Mean Blood Pressure Location Blood Pressure Position O2 Sat by Pulse Oximetry Oxygen Delivery Method Nasal Cannula Oxygen Flow Rate Fraction of Inspired Oxygen (FIO2) 4 Telemetry Type Bedside Monitor Telemetry Monitoring Continues Irregular Telemetry Rate (Approximate) Telemetry Heart Rate 117 H Telemetry SPO2 93 EKG QRS Interval 0.09 Telemetry Strip Reading afib with rvr 04/11/23 09:49 04/11/23 10:00 Temperature 98.0 F Temperature Source Oral Pulse Rate 100 Respiratory Rate 23 H Blood Pressure 104/68 Blood Pressure Mean 80 Blood Pressure Location Right Arm Blood Pressure Position Sitting O2 Sat by Pulse Oximetry 98 Oxygen Delivery Method Nasal Cannula Nasal Cannula Oxygen Flow Rate 4 3 Fraction of Inspired Oxygen (FIO2) Telemetry Type Telemetry Monitoring Irregular Telemetry Rate (Approximate) Telemetry Heart Rate Telemetry SPO2 EKG QRS Interval Telemetry Strip Reading Lab Results Lab Results: Lab Results: Last 24 Hours 04/11/23 04/10/23 08:41 14:14 WBC 12.99 H RBC 3.91 L Hgb 11.6 L Hct 35.7 L MCV 91.3 MCH 29.7 MCHC 32.5 RDW Coeff of Aroldo 13.3 Plt Count 242 Immature Gran % (Auto) 0.7 Neut % (Auto) 76.2 H Lymph % (Auto) 10.3 [place] % (Auto) 11.5 H Eos % (Auto) 0.9 Baso % (Auto) 0.4 Neut # (Auto) 9.9 H Lymph # (Auto) 1.3 [place] # (Auto) 1.5 Eos # (Auto) 0.1 Baso # (Auto) 0.1 Immature Gran # (Auto) 0.1 Sodium 127.2 L Potassium 4.88 Chloride 98.0 Carbon Dioxide 18.9 L Anion Gap 15.18 BUN 60.4 H* Creatinine 1.95 H Estimated GFR (MDRD) 24.00 BUN/Creatinine Ratio 30.97 Glucose 275.0 H Calcium 9.88 Magnesium 2.44 H Total Bilirubin 0.36 AST 57.2 H ALT 42.6 H Alkaline Phosphatase 89.9 Troponin I 16.600 H* Total Protein 7.70 Albumin 3.71 Globulin 3.99 Albumin/Globulin Ratio 0.92 Additional Comments Additional Comments: I have independently reviewed and interpreted the labs/EKGs/imaging ordered during this hospital stay. I have reviewed outside records that are available in our EMR that pertain to medical stay including imaging/notes/labs from previous visits. Active Medications Active Medications: Medications Generic Name Dose Route Start Last Admin Trade Name Freq PRN Reason Stop Dose Admin Acetaminophen 650 mg 04/06/23 20:01 04/08/23 16:32 Acetaminophen 325 Mg Tablet PO 650 mg Q4H PRN Administration Mild Pain Albuterol/Ipratropium 3 ml 04/06/23 20:06 04/11/23 00:15 Ipratropium/Albuterol Vial.Neb NEB 3 ml RTQ6H PRN Administration Wheezing Aspirin 81 mg 04/09/23 07:30 04/11/23 09:39 Aspirin 81 Mg Tab.Chew PO 81 mg DAILYWM2 LAURA Administration Digoxin 125 mcg 04/06/23 21:05 04/11/23 09:39 Digoxin 125 Mcg Tablet PO 125 mcg DAILY LAURA Administration Enoxaparin Sodium 40 mg 04/09/23 09:00 04/11/23 09:43 Enoxaparin Sodium 40 Mg/0.4 Ml Syr SUBCUT 40 mg DAILY LAURA Administration Furosemide 20 mg 04/10/23 06:00 04/11/23 05:24 Furosemide 20 Mg Tablet PO 20 mg QDAC2 LAURA Administration Hydroxyzine HCl 25 mg 04/11/23 10:44 Hydroxyzine Hcl 25 Mg Tablet PO 04/11/23 10:45 ONCE ONE CEFTRIAXONE/D5W 1 GM PREMIX 1 gm in 50 mls @ 100 mls/hr 04/07/23 21:00 04/10/23 20:16 Rocephin 1 Gm/50 Ml D5w IV 04/12/23 22:59 100 mls/hr BEDTIME LAURA Administration Doxycycline Hyclate 100 mg/ 100 mls @ 50 mls/hr 04/10/23 21:00 04/11/23 10:18 Sodium Chloride IV 04/13/23 22:59 50 mls/hr Q12HR LAURA Administration Insulin Glargine 50 unit 04/06/23 21:15 04/11/23 09:48 Insulin Glargine,Hum.Rec.Anlog 100 Units/Ml SUBCUT 50 unit DAILY LAURA Administration Insulin Human Lispro 0 unit 04/10/23 11:31 04/11/23 06:11 Insulin Lispro 100 Unit/Ml (3 Ml) Vial SUBCUT 10 unit PRN PRN Administration Hyperglycemia Protocol Linagliptin 5 mg 04/08/23 21:00 04/10/23 20:16 Linagliptin 5 Mg Tablet PO 5 mg BEDTIME LAURA Administration Losartan Potassium 50 mg 04/08/23 09:10 04/11/23 09:39 Losartan Potassium 25 Mg Tablet PO 50 mg DAILY LAURA Administration Lovastatin 40 mg 04/08/23 17:00 04/10/23 16:29 Lovastatin 20 Mg Tablet PO 40 mg QPM LAURA Administration Metoprolol Tartrate 25 mg 04/06/23 21:10 04/11/23 09:39 Metoprolol Tartrate 25 Mg Tablet PO 25 mg BID LAURA Administration Mirtazapine 15 mg 04/06/23 21:30 04/10/23 20:17 Mirtazapine 15 Mg Tablet PO 15 mg BEDTIME LAURA Administration Morphine Sulfate 1 mg 04/06/23 21:08 04/11/23 00:04 Morphine Sulfate 2 Mg/Ml Syringe IVP 1 mg Q6H PRN Administration Pain Omeprazole 20 mg 04/10/23 07:30 04/10/23 08:45 Omeprazole 20 Mg Capsule.Dr PO 20 mg Q48H LAURA Administration Ondansetron HCl 4 mg 04/06/23 20:16 04/10/23 08:53 Ondansetron Hcl/Pf 4 Mg/2 Ml Sdv IVP 4 mg Q6H PRN Administration Nausea / Vomiting Sodium Chloride 1 syr 04/07/23 13:00 04/11/23 04:59 0.9% Sodium Chloride 10 Ml Disp.Syrin IVF 1 syr Q8HR LAURA Administration Sodium Chloride 1 gm 04/10/23 21:00 04/11/23 09:39 Sodium Chloride 1 Gm Tablet PO 1 gm QID LAURA Administration Plan Plan: 1. Acute chest pain with st changes - Resolved. Medically managing. 2. Acute hypoxic respiratory failure in setting of systolic heart failure and nstemi - Wean O2 when able. RT consult. 3. NSTEMI in setting of CHF and CAP - Completed lovenox x48 hours, transitioned to prophylactic lovenox. Cont Metoprolol bid and losartan. Appears to have had another cardiac event on 04/10, improved today. 4. Acute systolic heart failure exacerbation in setting of NSTEMI - Lasix ordered. Echo with EF 30-35%. I&Os. Daily weight. Stop outpatient procardia. Will add aldactone today. Will check prices of jardiance and entresto. 5. CAP, left - Rocephin and doxy ordered. Duonebs ordered. 6. A fib - Chronic, stable. Cont digoxin and metoprolol. 7. History of subdural hematoma, 2018 - Discussed risks of lovenox/heparin with son with her hx of subdural bleed. He understands and wishes to proceed with treatment of nstemi. 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 9. DMT2, insulin dependent - Cont home long acting, SS humalog ordered, accuchecks achs. 10. Hyperlipidemia - Cont statin 11. Transaminitis, mild - Improving, likely in setting of HF congestion. Continue to monitor. 12. Hyponatremia - Fluid restriction 1800 ml. Cont lasix. Monitor daily. 13. HITESH, stage I - Likely due to events yesterday and increasing her lasix. Decreased lasix amount for today. Adding aldactone. Will monitor renal function. DVT: lovenox Dispo: Once patient is medically stable will reevaluate swingbed possibility. Review Statement Review Statement: I have personally discussed and reviewed the patient's visit/currently labs/imaging/decision making with Dr. Servin, my supervising attending. Greater that 50 minutes spent with patient, 50% of the time spent with this patient was devoted to counseling and coordination of care.
[2023-04-11] MEDS ORDERED: ATIVAN PO ONE (13:39)
[2023-04-11] MEDS ORDERED: ZYPREXA IM ONE (14:30)
[2023-04-11] MEDS: MEVACOR PO SCH (16:59)
[2023-04-11] MEDS ORDERED: LASIX IVP ONE (18:08)
[2023-04-11] MEDS ORDERED: ATIVAN IVP PRN (19:40)
[2023-04-11] MEDS: REMERON PO SCH (20:11)
[2023-04-11] MEDS: TRADJENTA PO SCH (20:12)
[2023-04-11] MEDS: ROCEPHIN 1 GM/50 ML D5W 1 GM/50 ML BAG IV SCH (20:23)
[2023-04-12] MEDS: MORPHINE 2 MG/ML SYRINGE IVP PRN ×2 (03:37→08:31)
[2023-04-12 05:09] LABS: BASOPHILS % (AUTO) 0.2 % (0.0-3.0); EOSINOPHILS % (AUTO) 0.1 % (0.0-7.0); HEMOGLOBIN 11.7 g/dl (12.0-16.0); IMMATURE GRANULOCYTE # (AUTO) 0.2 (0.0-1.0); IMMATURE GRANULOCYTE % (AUTO) 1.4 % (0.0-5.0); LYMPHOCYTES # (AUTO) 1.3 K/uL (0.60-3.4); LYMPHOCYTES % (AUTO) 9.3 (10.0-50.0); MEAN CORPUSCULAR HEMOGLOBIN 29.6 pg (27.0-31.0); MEAN CORPUSCULAR HGB CONC 31.6 (31.8-35.4); MEAN CORPUSCULAR VOLUME 93.7 fl (81.0-99.0); MONOCYTES # (AUTO) 1.8 K/uL (0.4-2.0); MONOCYTES % (AUTO) 12.8 (0-10); NEUTROPHILS # (AUTO) 10.9 K/ul (2.0-6.9); NEUTROPHILS % (AUTO) 76.2 % (42.2-75.2); PLATELET COUNT 282 10^3/uL (140-440); RDW COEFFICIENT OF VARIATION 13.4 % (11.6-14.8); RED BLOOD COUNT 3.95 10^6/ul (4.20-5.40); WHITE BLOOD COUNT 14.25 K/ul (4.6-10.2)
[2023-04-12 05:22] LABS: ALANINE AMINOTRANSFERASE 472.9 U/L (0-35); ALBUMIN 3.93 g/dL (3.5-5.0); ALKALINE PHOSPHATASE 89.1 U/L (53-141); ASPARTATE AMINO TRANSFERASE 650.8 U/L (14-36); BILIRUBIN,TOTAL 0.37 mg/dL (0.2-1.3); CALCIUM 9.83 mg/dL (8.4-10.2); CHLORIDE 99.1 mmol/L (98-107); CREATININE 2.72 mg/dL (0.60-1.30); GLUCOSE 204.5 mg/dL (74-106); SODIUM 129.4 mmol/L (134.5-145); TOTAL PROTEIN 7.84 g/dL (6.3-8.2)
[2023-04-12] MEDS: LASIX TAB PO SCH (05:24)
[2023-04-12 05:32] LABS: BLOOD UREA NITROGEN 77.9 mg/dL (7-17); POTASSIUM 6.35 mmol/L (3.5-5.1)
[2023-04-12] MEDS ORDERED: MORPHINE 2 MG/ML SYRINGE IVP PRN (08:31)
[2023-04-12] MEDS ORDERED: ATIVAN IVP PRN (08:32)
[2023-04-12] MEDS ORDERED: MORPHINE 2 MG/ML SYRINGE IVP SCH ×2 (08:33→09:00)
[2023-04-12] MEDS ORDERED: ATIVAN IVP SCH (09:00)
[2023-04-12] MEDS: ASPIRIN CHEWABLE PO SCH (09:09)
[2023-04-12] MEDS: PRILOSEC PO SCH (09:09)
--- NOTE | 2023-04-12 09:49 | PCM.PROG ---
Date/Time Seen Date Seen by Provider: 04/12/23 Time Seen by Provider: 08:10 Provider Provider: ANKUR WYMAN [facility]-C, [facility] Chief Complaint Chief Complaint: N STEMI,LLL PNA Subjective Subjective: Patient has worsened over last 24 hours. She is air hungry, in respiratory distress. Was given lasix and morphine last night. Breathing improved with morphine but had minimal output. Very distressed this morning. Labs worsening. BP soft. Family at bedside including POA. They would like to make patient comfortable at this point. Objective Appearance: Positive Ill-Appearing (improved from yesterday however ) and Other (+acutely distressed, poor color, lethargic, opens eyes to stimuli. ) Chest/Lungs: Positive Symmetrical With Equal Breath Sounds and Other (Increased respirations, labored breathing) Heart: Positive Irregular Rhythm GI/: Positive Soft, Nontender, Bowel Sounds Normal and No Distention Neurological: Positive Cranial Nerves Intact, Alert, Disorinted and Other (+generalized weakness ) Vital Signs Vital Signs: Vital Signs: Last 24 Hours 04/11/23 09:49 04/11/23 10:00 04/11/23 13:00 Temperature 98.0 F Temperature Source Oral Pulse Rate 100 Respiratory Rate 23 H Blood Pressure 104/68 Blood Pressure Mean 80 Blood Pressure Location Right Arm Blood Pressure Position Sitting O2 Sat by Pulse Oximetry 98 Oxygen Delivery Method Nasal Cannula Nasal Cannula Oxygen Flow Rate 4 3 Weight Telemetry Type Bedside Monitor Telemetry Monitoring Continues Irregular Telemetry Rate (Approximate) Telemetry Heart Rate 100 Telemetry SPO2 EKG QRS Interval 0.06 Telemetry Strip Reading afib 04/11/23 13:56 04/11/23 14:21 04/11/23 18:00 Temperature 97.6 F 97.1 F L Temperature Source Oral Temporal Artery Scan Pulse Rate 105 H 107 H Respiratory Rate 24 H 26 H Blood Pressure 128/88 111/71 Blood Pressure Mean 101 84 Blood Pressure Location Left Arm Left Arm Blood Pressure Position Supine Sitting O2 Sat by Pulse Oximetry 89 L 91 L Oxygen Delivery Method Nasal Cannula Nasal Cannula Nasal Cannula Oxygen Flow Rate 4 3 4 Weight Telemetry Type Telemetry Monitoring Irregular Telemetry Rate (Approximate) Telemetry Heart Rate Telemetry SPO2 EKG QRS Interval Telemetry Strip Reading 04/11/23 19:00 04/11/23 19:54 04/11/23 20:00 Temperature Temperature Source Pulse Rate Respiratory Rate 34 H Blood Pressure Blood Pressure Mean Blood Pressure Location Blood Pressure Position O2 Sat by Pulse Oximetry 95 Oxygen Delivery Method Nasal Cannula Nasal Cannula Oxygen Flow Rate 4 4 Weight Telemetry Type Bedside Monitor Telemetry Monitoring Continues Irregular Telemetry Rate (Approximate) 100-110 BPM Telemetry Heart Rate Telemetry SPO2 EKG QRS Interval 0.10 Telemetry Strip Reading AFIB WITH RVR 04/11/23 20:39 04/12/23 01:00 04/12/23 01:42 Temperature 97.2 F L 97.0 F L Temperature Source Oral Temporal Artery Scan Pulse Rate 98 101 H Respiratory Rate 35 H 35 H Blood Pressure 111/70 104/69 Blood Pressure Mean 83 80 Blood Pressure Location Left Arm Left Arm Blood Pressure Position Supine Supine O2 Sat by Pulse Oximetry 94 L 93 L Oxygen Delivery Method Room Air Nasal Cannula Oxygen Flow Rate 4 Weight Telemetry Type Bedside Monitor Telemetry Monitoring Continues Irregular Telemetry Rate (Approximate) 100-110 BPM Telemetry Heart Rate Telemetry SPO2 EKG QRS Interval 0.08 Telemetry Strip Reading AFIB WITH RVR 04/12/23 04:58 04/12/23 05:00 04/12/23 05:16 Temperature 96.9 F L Temperature Source Temporal Artery Scan Pulse Rate 88 Respiratory Rate 33 H Blood Pressure 97/61 Blood Pressure Mean 73 Blood Pressure Location Right Arm Blood Pressure Position Supine O2 Sat by Pulse Oximetry 96 96 Oxygen Delivery Method Nasal Cannula Nasal Cannula Oxygen Flow Rate 4 4 Weight 198 lb 3 oz Telemetry Type Telemetry Monitoring Irregular Telemetry Rate (Approximate) Telemetry Heart Rate Telemetry SPO2 EKG QRS Interval Telemetry Strip Reading 04/12/23 07:00 04/12/23 08:00 Temperature Temperature Source Pulse Rate Respiratory Rate Blood Pressure Blood Pressure Mean Blood Pressure Location Blood Pressure Position O2 Sat by Pulse Oximetry Oxygen Delivery Method Nasal Cannula Oxygen Flow Rate 4 Weight Telemetry Type Bedside Monitor Telemetry Monitoring Continues Irregular Telemetry Rate (Approximate) Telemetry Heart Rate 96 Telemetry SPO2 94 EKG QRS Interval 0.06 Telemetry Strip Reading afib Lab Results Lab Results: Lab Results: Last 24 Hours 04/12/23 05:04 WBC 14.25 H RBC 3.95 L Hgb 11.7 L Hct 37.0 MCV 93.7 MCH 29.6 MCHC 31.6 L RDW Coeff of Aroldo 13.4 Plt Count 282 Immature Gran % (Auto) 1.4 Neut % (Auto) 76.2 H Lymph % (Auto) 9.3 L [place] % (Auto) 12.8 H Eos % (Auto) 0.1 Baso % (Auto) 0.2 Neut # (Auto) 10.9 H Lymph # (Auto) 1.3 [place] # (Auto) 1.8 Eos # (Auto) 0.0 Baso # (Auto) 0.0 Immature Gran # (Auto) 0.2 Sodium 129.4 L Potassium 6.35 H* Chloride 99.1 Carbon Dioxide 21.0 L Anion Gap 15.65 BUN 77.9 H* Creatinine 2.72 H D Estimated GFR (MDRD) 17.00 BUN/Creatinine Ratio 28.63 Glucose 204.5 H D Calcium 9.83 Total Bilirubin 0.37 AST 650.8 H D ALT 472.9 H D Alkaline Phosphatase 89.1 Total Protein 7.84 Albumin 3.93 Globulin 3.91 Albumin/Globulin Ratio 1.00 Additional Comments Additional Comments: I have independently reviewed and interpreted the labs/EKGs/imaging ordered during this hospital stay. I have reviewed outside records that are available in our EMR that pertain to medical stay including imaging/notes/labs from previous visits. Active Medications Active Medications: Medications Generic Name Dose Route Start Last Admin Trade Name Freq PRN Reason Stop Dose Admin Lorazepam 1 mg 04/12/23 09:00 Lorazepam Inj 2 Mg/Ml Vial IVP Q4HR LAURA Lorazepam 1 mg 04/12/23 08:32 Lorazepam Inj 2 Mg/Ml Vial IVP Q2HR PRN Anxiety Morphine Sulfate 1 mg 04/12/23 08:31 Morphine Sulfate 2 Mg/Ml Syringe IVP Q2HR PRN pain Morphine Sulfate 1 mg 04/12/23 09:00 04/12/23 09:07 Morphine Sulfate 2 Mg/Ml Syringe IVP Not Given Q4HR LAURA Ondansetron HCl 4 mg 04/06/23 20:16 04/10/23 08:53 Ondansetron Hcl/Pf 4 Mg/2 Ml Sdv IVP 4 mg Q6H PRN Administration Nausea / Vomiting Sodium Chloride 1 syr 04/07/23 13:00 04/12/23 04:57 0.9% Sodium Chloride 10 Ml Disp.Syrin IVF Not Given Q8HR [facility] Plan Plan: 1. Acute hypoxic respiratory failure in setting of systolic heart failure and nstemi - Requiring 4L, air hungry, in respiratory distress. Ativan and morphine ordered. 3. NSTEMI in setting of CHF and CAP - Completed lovenox x48 hours, transitioned to prophylactic lovenox. Appears to have had another cardiac event on 04/10. Stopping oral meds today, pt cannot tolerate them anyhow. 4. Acute systolic heart failure exacerbation in setting of NSTEMI - Echo with EF 30-35% prior to event Sunday. I&Os. Little to no output overnight. Stopping lasix. 5. CAP, left - Antibiotics completed. 6. A fib - Chronic, stable. 7. History of subdural hematoma, 2018 - Discussed risks of lovenox/heparin with son with her hx of subdural bleed. He understands and wished to proceed with treatment of nstemi. 8. NPH s/p BRIDGE CONTRACTOR shunt - Has not had shunt checked in past 2 years, no sign of malfunction. 9. DMT2, insulin dependent - hold insulin. 10. Hyperlipidemia - stop oral med 11. Transaminitis - Acutely worsened today 12. Hyponatremia - Stable 13. HITESH, stage I - Worsened today. DVT: hold lovenox Dispo: Patient has acutely worsened over past 24 hours and labs are now reflecting that as well. She has started multi organ failure with acute renal and liver enzymes worsening. Her respiratory status has declined significantly. She is lethargic. Family has decided to stop pursing treatment and to make her comfortable. Ativan and morphine ordered. Hospice consult placed. Notified PCP Dr. Mendoza of patient's imminent condition. [facility] minutes spent discussing advance care planning. DNR comfort measures only. Review Statement Review Statement: I have personally discussed and reviewed the patient's visit/currently labs/imaging/decision making with Dr. Servin, my supervising attending. Greater that 50 minutes spent with patient, 50% of the time spent with this patient was devoted to counseling and coordination of care.
[2023-04-12] MEDS ORDERED: TRANSDERM-SCOP 1.5 MG PATCH TD PRN (09:57)
[2023-04-12 10:21] VITALS: BP 99/57; PULSE 94; RESP 34; TEMP 99.1
[2023-04-12] MEDS ORDERED: ROXANOL 20 MG/ML PO PRN (10:37)
[2023-04-12] MEDS ORDERED: LEVSIN PO PRN (10:39)
--- NOTE | 2023-04-12 11:04 | DCSUM ---
Admission Date Admission Date: 04/06/23 Discharge Date Discharge Date: 04/12/23 Admission Diagnosis Admission Diagnosis: 1. Acute hypoxic respiratory failure in setting of systolic heart failure and nstemi 2. NSTEMI in setting of CHF and CAP 3. Acute systolic heart failure exacerbation in setting of NSTEMI 4. CAP, left 5. Transaminitis 6. Hyponatremia Discharge Diagnosis Discharge Diagnosis: 1. Acute hypoxic respiratory failure in setting of systolic heart failure and nstemi 2. NSTEMI in setting of CHF and CAP 3. Acute systolic heart failure exacerbation in setting of NSTEMI 4. CAP, left 5. Acute transaminitis, worsened 6. HITESH, stage I, worsened 7. Hyponatremia 8. A fib - Chronic 9. History of subdural hematoma, 2018 10. NPH s/p LOGGING ASSISTANT shunt 11. DMT2, insulin dependent 12. Hyperlipidemia Hospital Provider Hospital Provider: ANKUR WYMAN PA-C, [facility] Primary Care Physician Primary Care Physician: CECILIO DASILVA Summary of History and Physical Summary of History and Physical: Patient is an 82 year old female from [facility] assisted living with pmhx of DMT2, a fib, CKD, CAD s/p CABG, subdural hematoma in 2018, NPH s/p LOGGING ASSISTANT shunt placement who presented to ER for SOB and low O2. Patient was found to have O2 sat of 90%. In ER she was found to have LLL pneumonia, pleural effusion, and bilateral edema noted. She had elevated trop of 38, BNP 6880. EKG without significant changes. Pt denied chest pain but does have dementia at baseline. ER provider had extensive conversation with the son. He wished for patient to not be transferred, no cardiac cath/intervention. He requested to keep her here at [place]. He understands the limitations of our hospital with very limited resources. Patient was admitted for CHF, NSTEMI, PNA to [facility]. She was started on a heparin drip, given lasix, and rocephin/azith in ER. Patient did well through the night. Patient denies chest pain. Breathing improved per son. Has some conversational dyspnea. [place] [facility] [place] Son states her mentation is much improved today as well. Of note, patient had a subdural hematoma in 2018. Was transferred to [facility] and evaluated by neurosurgery. No intervention done. Monitored and placed on keppra bid x5 days. Her CT at the time did show signs of NPH. She was worked up for this outpatient and ultimately had a LOGGING ASSISTANT shunt placed in 2018 as well. Son states this hasn't been checked in about 2 years now. Discussed risks of anticoagulation for nstemi with hx of brain bleed. Son understands and would like to continue plan of care. Hospital Course Subjective: Patient was initially started on a heparin drip. She became very difficult blood draw off to monitor PTT. She was transitioned to Lovenox treatment dose. This was completed for a total of 48 hours. She was also diuresed during this time and did well. She had an echo that showed an EF of 30 to 35%. She was also treated with Rocephin and doxycycline for developing pneumonia on her chest x-ray. She was alert and conversational. She was feeling much better. We had plans to hopefully transition to swing bed for therapy with the goal of returning to the assisted living. On Sunday we were planning to transition to swing bed however patient had a cardiac episode that morning. She was diaphoretic, chest pain, labored breathing, hypoxic. She was managed symptomatically with nitro, Zofran, aspirin, morphine. She did improve later in the day and was more calm and relaxed. However she continued to deteriorate following that event. Her respiratory status continued to decline. This morning the patient was very air hungry and in respiratory distress. Her labs have declined showing an acute renal failure and her liver enzymes have multiplied 10 times. She has had little to no output. She has been tachycardic and hypotensive. She appeared very uncomfortable. Had a lengthy discussion with the patient's family including the POA. They ultimately decided to stop pursuing treatment and to transition to comfort measures only. Morphine and Ativan were ordered. She had good responses to morphine which made her more comfortable. Hospice was consulted with the plan of doing inpatient hospice. Hospice arrived and consulted with family and evaluated the patient. They accepted to their services. She within a few minutes. Time of was 10:54 on 04/12/2023 with family at her bedside. Appearance: Ill-appearing and Other (+air hungry, labored breathing, lethargic ) HEENT: Supple CVS: Other (+tachycardic ) Abdomen: Soft, Non-Tender and No Distention Respiratory: Other (+labored breathing, increased respirations ) Extremities: No Edema Vital Signs: Most Recent Vital Signs Temperature 99.1 F 04/12/23 10:00 Temperature Source Oral 04/12/23 10:00 Temperature Source Oral 04/06/23 16:08 Pulse Rate 94 04/12/23 10:00 Respiratory Rate 34 H 04/12/23 10:00 Blood Pressure 99/57 L 04/12/23 10:00 Blood Pressure Mean 71 04/12/23 10:00 Blood Pressure Left Arm 120/66 04/06/23 20:39 Blood Pressure Location Left Arm 04/12/23 10:00 Blood Pressure Position Supine 04/12/23 05:16 O2 Sat by Pulse Oximetry 87 L 04/12/23 10:00 Oxygen Delivery Method Nasal Cannula 04/12/23 10:00 Oxygen Flow Rate 4 04/12/23 10:00 Fraction of Inspired Oxygen (FIO2) 4 04/11/23 08:00 Height 5 ft 10 in 04/06/23 20:39 Weight 198 lb 3 oz 04/12/23 04:58 Telemetry Type Bedside Monitor 04/12/23 07:00 Telemetry Monitoring Continues 04/12/23 07:00 Irregular Telemetry Rate (Approximate) 100-110 BPM 04/12/23 01:00 Telemetry Heart Rate 96 04/12/23 07:00 Telemetry SPO2 94 04/12/23 07:00 EKG AK Interval 0.06 L 04/08/23 19:00 EKG QRS Interval 0.06 04/12/23 07:00 Telemetry Strip Reading afib 04/12/23 07:00 Imaging: EXAM: FRONTAL VIEW OF THE CHEST. HISTORY: Shortness of breath COMPARISON: 05/10/2022 FINDINGS: Cardiac silhouette is cardiomegaly. Pneumonia left lung base. Interstitial edema versus interstitial infiltrate bilateral lungs. No pneumothorax. Left-sided effusion. No acute osseous abnormality. IMPRESSION: 1. Developing pneumonia left lung base 2. Bilateral interstitial edema versus viral infiltrate. 3. Left-sided pleural effusion. EXAM: CHEST RADIOGRAPH TECHNIQUE: Single frontal chest radiograph. COMPARISON: 04/06/2023 HISTORY: Shortness of breath. FINDINGS: Cardiomegaly and arteriosclerosis are unchanged. Prominent bibasilar markings have increased. Small pleural effusions and bibasilar atelectasis are noted. No pneumothorax. No acute abnormality of the bones or soft tissues is identified. IMPRESSION: New mild cardiogenic pulmonary edema is suspected. Date of Exam: 04/07/2023Ordering Physician: HOSPITALIST--Jesika MCRAE/ DR. DASILVA Room #: SCU2 Reason for Echo: N-STEMI, SOB, A-FIB, HTN, DM2, HX CABG, CHF M-Mode Normal Adult Results LV Dimensions Normal Adult Results AoV Opening excursions >1.6 >1.6 LVEDD-base- 3.5-5.8 6.2 Ao root dimensions 2.0-3.7 3.3 LVESD-base- 3.1-4.6 L. Atrium dimensions 1.9-3.8 6.0 Post. Wall thickness 0.8-1.1 1.1 IV septum (thickness) 0.7-1.2 1.3 Post. Wall excursion 0.72-1.3 0.6 Septal motion 0.5 Systolic motion R. Ventricular cavity 1.5-2.0 NORMAL LVEF 60% 30-35% Paradoxical septal wall motion NORMAL 2-D : M Mode Echocardiogram --ENLARGED LEFT ATRIAL, LEFT VENTRICLE AND RIGHT ATRIAL CAVITIES, HYPOKINETIC LEFT VENTRICLE, VALVES--NORMAL, NO EFFUSION, NO THROMBUS COLOR FLOW--DOPPLER--MODERATE TRICUSPID REGURGITATION AND MITRAL REGURGITATION M-MODE: MV: CALCIFIC MITRAL VALVE ANNULUS AV: NORMAL TV: NORMAL PV: CHAMBER SIZE: ENLARGED LEFT ATRIAL, LEFT VENTRICLE AND RIGHT VENTRICLE CAVITIES WALL MOTION: HYPOKINETIC LEFT VENTRICLE PERICARDIUM: NORMAL INTERPRETATION: 1. LEFT VENTRICLE HYPERTROPHY 2. CALCIFIC MITRAL VALVE ANNULUS 3. HYPOKINETIC LEFT VENTRICLE WITH EJECTION FRACTION 30 TO 35% 4. ENLARGED LEFT ATRIAL, LEFT VENTRICLE AND RIGHT ATRIAL CAVITIES 5. COLOR FLOW--MODERATE MITRAL REGURGITATION AND TRICUSPID REGURGITATION 6. DILATED ISCHEMIC CARDIOMYOPATHY Lab Results Last 24 Hours: 04/12/23 05:04 WBC 14.25 H RBC 3.95 L Hgb 11.7 L Hct 37.0 MCV 93.7 MCH 29.6 MCHC 31.6 L RDW Coeff of Aroldo 13.4 Plt Count 282 Immature Gran % (Auto) 1.4 Neut % (Auto) 76.2 H Lymph % (Auto) 9.3 L [place] % (Auto) 12.8 H Eos % (Auto) 0.1 Baso % (Auto) 0.2 Neut # (Auto) 10.9 H Lymph # (Auto) 1.3 [place] # (Auto) 1.8 Eos # (Auto) 0.0 Baso # (Auto) 0.0 Immature Gran # (Auto) 0.2 Sodium 129.4 L Potassium 6.35 H* Chloride 99.1 Carbon Dioxide 21.0 L Anion Gap 15.65 BUN 77.9 H* Creatinine 2.72 H D Estimated GFR (MDRD) 17.00 BUN/Creatinine Ratio 28.63 Glucose 204.5 H D Calcium 9.83 Total Bilirubin 0.37 AST 650.8 H D ALT 472.9 H D Alkaline Phosphatase 89.1 Total Protein 7.84 Albumin 3.93 Globulin 3.91 Albumin/Globulin Ratio 1.00 Discharge Instructions Discharge Planning: Discharge Planning > [address] Samina Servin. Discharge Medications: Medications at Discharge (Home Meds & RX) aspirin 81 mg chewable tablet 81 mg PO DAILY 02/18/18 cholecalciferol (vitamin D3) 25 mcg (1,000 unit) tablet (Vitamin D3) 5,000 unit PO DAILY 02/18/18 digoxin 250 mcg (0.25 mg) tablet 250 mcg PO DAILY 02/18/18 furosemide 20 mg tablet (Lasix) 20 mg PO EVERY OTHER DAY 02/18/18 linagliptin 5 mg tablet (Tradjenta) 5 mg PO BEDTIME 02/18/18 lovastatin 40 mg tablet,extended release 24 hr (Altoprev) 40 mg PO BEDTIME 02/18/18 metoprolol succinate 25 mg tablet,extended release 24 hr 25 mg PO BID 02/18/18 omeprazole 20 mg capsule,delayed release 20 mg PO EVERY OTHER DAY 02/18/18 latanoprost (PF) 0.005 % eye drops 1 drp BOTHEYES BEDTIME 02/25/18 mirtazapine 15 mg tablet 15 mg PO BEDTIME 02/25/18 losartan 100 mg tablet 100 mg PO DAILY ##30 02/28/18 acetaminophen 325 mg tablet 650 mg PO Q4-6H PRN PAIN/FEVER 06/24/18 insulin glargine 100 unit/mL (3 mL) subcutaneous pen (Basaglar KwikPen U-100 Insulin) 50 unit SQ DAILY 06/24/18 polyethylene glycol 3350 17 gram oral powder packet (Miralax) 17 g PO DAILY PRN Constipation 06/24/18 insulin aspart U-100 100 unit/mL subcutaneous cartridge (Novolog PenFill U-100 Insulin aspart) 10 unit SQ TID 09/04/18 loperamide 2 mg capsule 2 mg PO Q6HR PRN Diarrhea 09/04/18 loratadine 10 mg tablet 10 mg PO DAILY PRN Allergy Symptoms 09/04/18 polyvinyl alcohol 1.4 % eye drops (Artificial Tears (polyvinyl alcohol)) 15 ml BOTHEYES BID PRN Dry Eye(S) 09/04/18 nifedipine 30 mg tablet,extended release 24 hr (Procardia XL) 30 mg PO DAILY #30 tabs 04/15/19 white petrolatum-mineral oil 94 %-3 % eye ointment (Systane Nighttime) 1 applic BOTHEYES BEDTIME 04/15/19 timolol 0.25 % eye drops 1 drp BOTHEYES BID 05/10/22 digoxin 125 mcg (0.125 mg) tablet 0.125 mg PO DAILY 04/06/23 Discharge Plan Discharge Discharge Orders: Discharge Patient (ONCE); Ordered 04/12/23 Ordered By: ANKUR WYMAN Patient Disposition: [facility] W/[facility]OSP[facility] TO HOSPICE Prescriptions: No Action digoxin 250 MCG tablet 250 mcg PO DAILY Hold Instructions: MD Powers omeprazole 20 MG capsule,delayed release(DR/EC) 20 mg PO EVERY OTHER DAY Hold Instructions: MD Powers aspirin 81 MG tablet,chewable 81 mg PO DAILY Hold Instructions: MD Powers furosemide [Lasix] 20 MG tablet 20 mg PO EVERY OTHER DAY Hold Instructions: MD Powers metoprolol succinate 25 MG tablet extended release 24 hr 25 mg PO BID Hold Instructions: MD Powers Altoprev 40 MG tablet extended release 24 hr 40 mg PO BEDTIME Hold Instructions: MD Powers cholecalciferol (vitamin D3) [Vitamin D3] 1,000 UNIT tablet 5,000 unit PO DAILY Hold Instructions: MD Powers Tradjenta 5 MG tablet 5 mg PO BEDTIME Hold Instructions: MD Powers mirtazapine 15 MG tablet 15 mg PO BEDTIME Hold Instructions: MD Powers latanoprost (PF) 7.5 ML drops 1 drp BOTHEYES BEDTIME Hold Instructions: MD Powers losartan 100 MG tablet 100 mg PO DAILY Qty: 30 0RF Hold Instructions: MD Powers Rx Instructions: TAKE ONE TABLET BY MOUTH DAILY THIS IS A NEW DOSE (INCREASED FROM 25 MG PO DAILY) loperamide 2 MG capsule 2 mg PO Q6HR PRN (Reason: Diarrhea) Hold Instructions: MD Powers polyvinyl alcohol [Artificial Tears (polyvin alc)] 15 ML drops 15 ml BOTHEYES BID PRN (Reason: Dry Eye(S)) Hold Instructions: MD Powers loratadine 10 MG tablet 10 mg PO DAILY PRN (Reason: Allergy Symptoms) Hold Instructions: MD Powers insulin aspart U-100 [Novolog PenFill U-100 Insulin] 100 UNIT/ML cartridge 10 unit SQ TID Hold Instructions: MD Smithed Systane Nighttime 94-3 % Ointment 1 applic BOTHEYES BEDTIME Hold Instructions: MD Powers nifedipine [Procardia XL] 30 mg tablet extended release 24hr 30 mg PO DAILY Qty: 30 0RF Hold Instructions: MD Powers timolol 0.25 % Drops 1 drp BOTHEYES BID Hold Instructions: MD Powers acetaminophen 325 MG tablet 650 mg PO Q4-6H PRN (Reason: PAIN/FEVER) Hold Instructions: MD Powers polyethylene glycol 3350 [Miralax] 17 GM powder in packet 17 g PO DAILY PRN (Reason: Constipation) Hold Instructions: MD Powers insulin glargine [Basaglar KwikPen U-100 Insulin] 100 UNIT/ML insulin pen 50 unit SQ DAILY Hold Instructions: MD Smithed digoxin 125 mcg (0.125 mg) tablet 0.125 mg PO DAILY Hold Instructions: MD Powers Did you review [place] [employer] ADMINISTRATOR for ALL controlled substances?: No Discussed opioids are addictive and Narcan is available by prescription or from pharmacy.: No
== END 2023-04-12 11:20 | disposition expired | DRG 189 ==
LOC: ED 15:52 → SCU 19:34
PROVIDERS: ADMIT Hospitalist; ATTEND Physician Assistant
DX: J96.01 Acute respiratory failure with hypoxia; Z98.2 Presence of cerebrospinal fluid drainage device; Z87.820 Personal history of traumatic brain injury; I50.21 Acute systolic (congestive) heart failure; R74.01 Elevation of levels of liver transaminase levels; I21.4 Non-ST elevation (NSTEMI) myocardial infarction; J18.9 Pneumonia, unspecified organism; Z79.4 Long term (current) use of insulin; R41.0 Disorientation, unspecified; I48.91 Unspecified atrial fibrillation; F03.90 Unspecified dementia, unspecified severity, without behavioral disturbance, psychotic disturbance, mood disturbance, and anxiety; E87.5 Hyperkalemia; E11.65 Type 2 diabetes mellitus with hyperglycemia; Z20.822 Contact with and (suspected) exposure to COVID-19; E78.5 Hyperlipidemia, unspecified; E87.1 Hypo-osmolality and hyponatremia; N17.9 Acute kidney failure, unspecified

== ENCOUNTER 2023-04-12 11:36 | Inpatient (IN) ==
--- NOTE | 2023-04-12 11:49 | PCM.SS ---
Provider [facility] Ad[facility] Date Admission Date: 04/12/23 Discharge Date Discharge Date: 04/12/23 Primary Care Physician Primary Care Physician: CECILIO DASILVA Chief Complaint Reason For Visit: NON STEMI, ACUTE RENAL FAILURE, ACUTE LIVER History of Present Illness History of Present Illness: Patient is an 82 year old female from [facility] assisted living with pmhx of DMT2, a fib, CKD, CAD s/p CABG, subdural hematoma in 2018, NPH s/p HOTEL FRONT DESK AGENT shunt placement who presented to ER on 04/06/23 for SOB and low O2. Patient was found to have O2 sat of 90%. In ER she was found to have LLL pneumonia, pleural effusion, and bilateral edema noted. She had elevated trop of 38, BNP 6880. EKG without significant changes. Pt denied chest pain but does have dementia at baseline. ER provider had extensive conversation with the son. He wished for patient to not be transferred, no cardiac cath/intervention. He requested to keep her here at [place]. He understands the limitations of our hospital with very limited resources. Patient was admitted for CHF, NSTEMI, PNA to [facility]. She was started on a heparin drip, given lasix, and rocephin/azith in ER. Patient did well through the night. Patient denies chest pain. Breathing imp roved per son. Has some conversational dyspnea. Has been to [facility] with assistance. Son states her mentation is much improved today as well. Of note, patient had a subdural hematoma in 2018. Was transferred to [facility] and evaluated by neurosurgery. No intervention done. Monitored and placed on keppra bid x5 days. Her CT at the time did show signs of NPH. She was worked up for this outpatient and ultimately had a HOTEL FRONT DESK AGENT shunt placed in 2018 as well. Son states this hasn't been checked in about 2 years now. Discussed risks of anticoagulation for nstemi with hx of brain bleed. Son understands and would like to continue plan of care. Patient was initially started on a heparin drip. She became very difficult blood draw off to monitor PTT. She was transitioned to Lovenox treatment dose. This was completed for a total of 48 hours. She was also diuresed during this time and did well. She had an echo that showed an EF of 30 to 35%. She was also treated with Rocephin and doxycycline for developing pneumonia on her chest x-ray. She was alert and conversational. She was feeling much better. We had plans to hopefully transition to swing bed for therapy with the goal of returning to the assisted living. On Tuesday 04/10 we were planning to transition to swing bed however patient had a cardiac episode that morning. She was diaphoretic, chest pain, labored breathing, hypoxic. She was managed symptomatically with nitro, Zofran, aspirin, morphine. She did improve later in the day and was more calm and relaxed. However she continued to deteriorate following that event. Her respiratory status continued to decline. This morning the patient was very air hungry and in respiratory distress. Her labs have declined showing an acute renal failure and her liver enzymes have multiplied 10 times. She has had little to no output. She has been tachycardic and hypotensive. She appeared very uncomfortable. Had a lengthy discussion with the patient's family including the POA. They ultimately decided to stop pursuing treatment and to transition to comfort measures only. Morphine and Ativan were ordered. She had good responses to morphine which made her more comfortable. Hospice was consulted with the plan of doing inpatient hospice. Hospice arrived and consulted with family and evaluated the patient. They accepted to their services. Paperwork was filled out. Verbal orders given to patient's nurse. She then within a few minutes. Time of was 10:54 on 04/12/2023 with family at her bedside. This provider evaluated patient and confirmed as well. [facility] Medical History Absence of gallbladder Z90.49 - Acquired absence of other specified parts of digestive tract (ICD- 10) Dry eye syndrome of both eyes H04.123 - Dry eye syndrome of bilateral lacrimal glands (ICD-10) Glaucoma H40.9 - Unspecified glaucoma (ICD-10) HTN (hypertension) I10 - Essential (primary) hypertension (ICD-10) Atrial fibrillation I48.91 - Unspecified atrial fibrillation (ICD-10) Diabetes E11.9 - Type 2 diabetes mellitus without complications (ICD-10) Arrhythmia I49.9 - Cardiac arrhythmia, unspecified (ICD-10) Surgical History H/O hernia repair Z98.890 - Other specified postprocedural states (ICD-10) Z87.19 - Personal history of other diseases of the digestive system (ICD-10) Hx of CABG 2011 Z95.1 - Presence of aortocoronary bypass graft (ICD-10) Family History Mother Diabetes FATHER Heart abnormality Mother Heart abnormality Social History Smoking and tobacco status: Never smoker Substance use type: does not use History of recent travel: No Medications Mecications: Medications at Discharge (Home Meds & RX) aspirin 81 mg chewable tablet 81 mg PO DAILY 02/18/18 cholecalciferol (vitamin D3) 25 mcg (1,000 unit) tablet (Vitamin D3) 5,000 unit PO DAILY 02/18/18 digoxin 250 mcg (0.25 mg) tablet 250 mcg PO DAILY 02/18/18 furosemide 20 mg tablet (Lasix) 20 mg PO EVERY OTHER DAY 02/18/18 linagliptin 5 mg tablet (Tradjenta) 5 mg PO BEDTIME 02/18/18 lovastatin 40 mg tablet,extended release 24 hr (Altoprev) 40 mg PO BEDTIME 02/18/18 metoprolol succinate 25 mg tablet,extended release 24 hr 25 mg PO BID 02/18/18 omeprazole 20 mg capsule,delayed release 20 mg PO EVERY OTHER DAY 02/18/18 latanoprost (PF) 0.005 % eye drops 1 drp BOTHEYES BEDTIME 02/25/18 mirtazapine 15 mg tablet 15 mg PO BEDTIME 02/25/18 losartan 100 mg tablet 100 mg PO DAILY ##30 02/28/18 acetaminophen 325 mg tablet 650 mg PO Q4-6H PRN PAIN/FEVER 06/24/18 insulin glargine 100 unit/mL (3 mL) subcutaneous pen (Basaglar KwikPen U-100 Insulin) 50 unit SQ DAILY 06/24/18 polyethylene glycol 3350 17 gram oral powder packet (Miralax) 17 g PO DAILY PRN Constipation 06/24/18 insulin aspart U-100 100 unit/mL subcutaneous cartridge (Novolog PenFill U-100 Insulin aspart) 10 unit SQ TID 09/04/18 loperamide 2 mg capsule 2 mg PO Q6HR PRN Diarrhea 09/04/18 loratadine 10 mg tablet 10 mg PO DAILY PRN Allergy Symptoms 09/04/18 polyvinyl alcohol 1.4 % eye drops (Artificial Tears (polyvinyl alcohol)) 15 ml BOTHEYES BID PRN Dry Eye(S) 09/04/18 nifedipine 30 mg tablet,extended release 24 hr (Procardia XL) 30 mg PO DAILY #30 tabs 04/15/19 white petrolatum-mineral oil 94 %-3 % eye ointment (Systane Nighttime) 1 applic BOTHEYES BEDTIME 04/15/19 timolol 0.25 % eye drops 1 drp BOTHEYES BID 05/10/22 digoxin 125 mcg (0.125 mg) tablet 0.125 mg PO DAILY 04/06/23 Allergies Allergies Allergy/AdvReac Type Severity Reaction Status Date / Time No Known Allergies Allergy Verified 04/06/23 19:15 Review of Systems Constitutional: Reports Weakness and Other (+lethargic) Head: Reports Normocephalic and Atraumatic Respiratory: Reports Shortness of air and Other (+air hungry) Physical Examination Appearance: Positive Ill-Appearing and Other (+air hungry, increased respirations, lethargic) Head: Positive Normocephalic and Atraumatic Neck: Positive Supple Heart: Positive Other (+tachycardic ) Respiratory: Positive Other (+increased respirations, labored breathing, air hungry, uncomfortable ) GI/: Positive Soft, Nontender, Bowel sounds normal and No Distention Extremities: Negative Edema Neurological: Positive Other (Opens eyes to verbal stimuli. Otherwise unresponsive this morning ) Psychiatric: Positive Other (Unable to evaluate due to patient condition ) Vital Signs (Last 4 Hours) Vital Signs Last 4 Hours: Vital Signs: Last 4 Hours 04/12/23 11:46 Height 5 ft 10 in Weight 198 lb Review Review Statement: I have independently reviewed and interpreted the labs/EKGs/imaging that were ordered by the ER provider. I have reviewed all outside records that are available currently in our EMR including imaging/notes/labs from previous visits. Plan Reccomendations/Plan: Time of : 10:54 Cause of : 1. Acute hypoxic respiratory failure in setting of systolic heart failure and nstemi 2. NSTEMI in setting of CHF and CAP 3. Acute systolic heart failure exacerbation in setting of NSTEMI 4. CAP, left 5. Acute transaminitis, worsened 6. HITESH, stage I, worsened 7. Hyponatremia 8. Hyperkalemia 9. A fib 10. History of subdural hematoma, 2018 11. NPH s/p HOTEL [employer] DESK AGENT shunt 12. DMT2, insulin dependent 13. Hyperlipidemia Additional Planning: DVT Prophylaxis: None Advanced Care Plannin minutes spent discussing advance care planning. DNR COMFORT MEASURES ONLY Admit to: Hospice Discussed Plan of Care with Dr. Samina Servin. Review With Patient Reviewed with Patient and Family: Patient and family have been counseled on condition and care plan and have no immediate questions. I have personally discussed and reviewed the patient's visit/current labs/imaging/decision making with Dr. Samina Servin, my supervising attending. Total number of minutes spent with patient [ 85 ] min. More than 50% of the time spent with this patient was devoted to counseling and coordination of care. Time of Admission:04/12/23 11:36 Time of Discharge: 04/12/2020 Time of : 1054 Discharge Plan Discharge Discharge Orders: Discharge Patient (ONCE); Ordered 04/12/23 Ordered By: ANKUR WYMAN Patient Disposition: Did you review [place] [employer] PRODUCER for ALL controlled substances?: Not Applicable Discussed opioids are addictive and Narcan is available by prescription or from pharmacy.: No Date/Time: 04/12/23 10:54
[2023-04-12 12:19] VITALS: PULSE 87; RESP 30; TEMP 99.1; BMI 28.4
[2023-04-12] MEDS ORDERED: ROXANOL 20 MG/ML PO PRN (12:33)
[2023-04-12] MEDS ORDERED: LEVSIN PO PRN (12:33)
[2023-04-12] MEDS ORDERED: TRANSDERM-SCOP 1.5 MG PATCH TD PRN (12:35)
[2023-04-12] MEDS ORDERED: ATIVAN IVP PRN (12:35)
== END 2023-04-12 12:50 | disposition expired | DRG 951 ==
LOC: SCU 11:36
PROVIDERS: ADMIT Hospitalist; ATTEND Physician Assistant